=== PATIENT | male | born 1945 | race Caucasian/White ===

== ENCOUNTER 2016-05-21 08:43 | Inpatient (IN) | payer BC, MEDICARE ==
[2016-05-21] MEDS ORDERED: Iohexol 350* (CONTRAST) 500 ML MDV IV ONE (09:02)
[2016-05-21 09:09] LABS: Hematocrit 40 % (42-52); Hemoglobin 13.5 g/dl (14.0-18.0); Mean Corpuscular HGB Conc 34 g/dl (31-36); Mean Corpuscular Hemoglobin 30 pg (27-31); Mean Corpuscular Volume 88 fL (80-94); Mean Platelet Volume 8 um3 (7.4-10.4); Red Blood Count 4.58 10^6/ul (4.0-5.4); Red Cell Distribution Width 14 % (10.5-15); White Blood Count 7.4 10^3/ul (3.5-10.8)
--- NOTE | 2016-05-21 09:22 | RAD ---
HISTORY: Stroke COMPARISONS: CT of the chest dated May 15, 2016 VIEWS:1: Single frontal portable view of the chest at 9:03 AM FINDINGS: LINES AND TUBES: There is a left-sided chest port with the tip overlying the superior vena cava CARDIOMEDIASTINAL SILHOUETTE: Again noted is a perihilar soft tissue density of the left corresponding to the soft tissue density noted in the left upper lung in the previous examination PLEURA: There is mild elevation of the left hemidiaphragm. LUNG PARENCHYMA: The lungs are clear. ABDOMEN: The upper abdomen is clear. There is no subphrenic gas. BONES AND SOFT TISSUES: No bone or soft tissue abnormalities are noted. IMPRESSION: STABLE LEFT PERIHILAR SOFT TISSUE DENSITY
[2016-05-21 09:31] LABS: Albumin 3.7 g/dL (3.2-5.2); BUN/Creatinine Ratio 18.9 (8-20); Calcium 9.4 mg/dL (8.6-10.3); EGFR African American 100.8 (>60); EGFR Non-African American 78.4 (>60); Globulin 2.8 g/dL (2-4); Potassium 4.6 mmol/L (3.5-5.0); Total Bilirubin 1.5 mg/dL (0.2-1.0); Total Protein 6.5 g/dL (6.4-8.9)
--- NOTE | 2016-05-21 09:50 | RAD ---
HISTORY: Facial droop, right arm weakness COMPARISONS: MRI of the brain dated August 14, 2008 TECHNIQUE: Multiple contiguous axial CT scans were obtained of the head without intravenous contrast. FINDINGS: HEMORRHAGE/INFARCT: There is no hemorrhage or acute infarct. MASSES/SHIFT: There is no mass or shift. EXTRA-AXIAL SPACES: There are no extra-axial fluid collections. SULCI AND VENTRICLES: The sulci and ventricles are normal in size and position for the patient's stated age. CEREBRUM: There are no focal parenchymal abnormalities. BRAINSTEM: There are no focal parenchymal abnormalities. CEREBELLUM: There are no focal parenchymal abnormalities. VESSELS: The vessels are grossly normal. PARANASAL SINUSES: The paranasal sinuses are clear. ORBITS: The orbits are unremarkable. BONES AND SOFT TISSUE: No bone or soft tissue abnormalities are noted. OTHER: None IMPRESSION: NO ACUTE INTRACRANIAL PATHOLOGY.
[2016-05-21] MEDS ORDERED: Insulin REGULAR(*) 1 UNITS UNIT IV PUSH ONE (09:55)
[2016-05-21] MEDS ORDERED: NS 0.9% 1000 ML* 2,000 ML IV ONE (09:55)
--- NOTE | 2016-05-21 09:59 | RAD ---
HISTORY: Facial droop, right arm weakness, history of lung cancer COMPARISONS: CT dated May 21, 2016 TECHNIQUE: Multiple contiguous axial CT scans were obtained of the head and neck After the administration of nonionic intravenous contrast timed to the systemic arterial phase of contrast enhancement. Coronal and sagittal multiplanar reformations are submitted for review. Multiple 3-D maximum intensity projection reconstructions are also submitted for review. FINDINGS: CTA NECK: AORTIC ARCH: The aortic arch is not completely visualized within the [id number] the current examination. There is no proximal stenosis of the cephalic great vessels. RIGHT VERTEBRAL ARTERY: The right vertebral artery is patent along its course, without stenosis. LEFT VERTEBRAL ARTERY: The left vertebral artery is patent along its course, without stenosis. DOMINANCE: The vertebral arteries are codominant. RIGHT COMMON CAROTID ARTERY: The right common carotid artery is patent. The right carotid bifurcation occurs at C3-C4 RIGHT INTERNAL CAROTID ARTERY: There is atheromatous disease of the right carotid bifurcation, without right internal carotid artery stenosis by NASCET criteria. RIGHT EXTERNAL CAROTID ARTERY: The right external carotid artery is unremarkable. LEFT COMMON CAROTID ARTERY: The left common carotid artery is patent. The left carotid bifurcation occurs at C3-C4 LEFT INTERNAL CAROTID ARTERY: There is atheromatous disease of the left carotid bifurcation, without left internal carotid artery stenosis by NASCET criteria. LEFT EXTERNAL CAROTID ARTERY: The left external carotid artery is unremarkable. VENOUS CIRCULATION: The venous system is unremarkable. SALIVARY GLANDS: The parotid glands, submandibular glands, sublingual glands are normal. NASAL CAVITY/NASOPHARYNX: The nasal cavity and nasopharynx are normal. ORAL CAVITY/OROPHARYNX: The oral cavity is obscured by streak artifact from dental amalgam. The visualized oral cavity and oropharynx are unremarkable. LARYNGEAL APPARATUS/HYPOPHARYNX: The laryngeal apparatus and hypopharynx are normal. UPPER AIRWAY/UPPER ESOPHAGUS: The visualized upper airway and esophagus are normal. LUNG APICES: The lung apices are clear. THYROID GLAND: The thyroid gland is normal. LYMPH NODES: There is no lymphadenopathy by size criteria. BONES AND SOFT TISSUES: There is a sclerotic lesion of C6. This measures approximately 1.8 x 0.7 x 0.9 cm in size. Degenerative changes are noted of the spine CTA HEAD: INTRACRANIAL CIRCULATION: There is no aneurysm, vascular malformation, occlusion, or stenosis of the visualized intracranial circulation. The anterior communicating artery complex is clear. Bilateral posterior communicating arteries are identified. VENOUS CIRCULATION: The venous system is unremarkable. PERFUSION: There is no obvious parenchymal perfusion deficit. HEMORRHAGE/INFARCT: There is no hemorrhage or acute infarct. MASSES/SHIFT: There is no mass or shift. EXTRA-AXIAL SPACES: There are no extra-axial fluid collections. SULCI AND VENTRICLES: The sulci and ventricles are normal in size and position for the patient's stated age. CEREBRUM: There are no focal parenchymal abnormalities. BRAINSTEM: There are no focal parenchymal abnormalities. CEREBELLUM: There are no focal parenchymal abnormalities. PARANASAL SINUSES: The paranasal sinuses are clear. ORBITS: The orbits are unremarkable. BONES AND SOFT TISSUE: No bone or soft tissue abnormalities are noted. OTHER: There is no abnormal enhancement. IMPRESSION: 1. ATHEROSCLEROSIS. 2. NO INTERNAL CAROTID ARTERY STENOSIS BY NASCET CRITERIA. 3. NO ANEURYSM, VASCULAR MALFORMATION, OCCLUSION, OR STENOSIS OF THE VISUALIZED INTRACRANIAL CIRCULATION.. 4. THERE IS A SCLEROTIC LESION OF C6. GIVEN THE HISTORY OF LUNG CANCER, OSTEOBLASTIC METASTATIC DISEASE IS WITHIN THE DIFFERENTIAL. CPT II Codes: 3100F
[2016-05-21] MEDS ORDERED: Aspirin TAB* 325 MG PO ONE (10:04)
[2016-05-21] MEDS ORDERED: Gabapentin CAP(*) 300 MG PO ONE (10:49)
[2016-05-21] MEDS ORDERED: Oxymorphone (NF) 10 MG TAB PO ONE (11:00)
[2016-05-21] MEDS ORDERED: Ondansetron INJ* 2 MG/ML VIAL IV PRN (11:39)
[2016-05-21] MEDS ORDERED: Oxymorphone (NF) 10 MG TAB PO PRN (11:46)
[2016-05-21] MEDS ORDERED: LORazepam INJ* 2 MG/ML 1 ML VIAL IV PUSH ONE (11:47)
[2016-05-21] MEDS ORDERED: Albuterol 2.5 MG/3 ML NEB.SOL* (0.083%) INH PRN (11:50)
[2016-05-21 12:00] LABS: Urine Bilirubin Negative (Negative); Urine Glucose 3+(>=500 mg/dL) (Negative); Urine Nitrite Negative (Negative)
[2016-05-21] MEDS ORDERED: Gabapentin CAP(*) 400 MG PO ONE (12:00)
--- NOTE | 2016-05-21 13:56 | ED ---
Alvino Mazariegos [place], scribed for Castro Beauchamp MD on 05/21/16 at 1113 . Neurological HPI - HPI Summary HPI Summary: Patient is a 71 y/o male who presents to the ED s/p a CVA this morning. Caregiver present at bedside reports that pt was nml last night, but woke up with slurred speech. Pt denies headache, but reports weakness or extremities. He also denies a hx of CVA. Pt is a lung cancer pt. - History of Current Complaint Chief Complaint: EDNeurologicalDeficit Stated Complaint: STROKE LIKE SYMPTOMS Time Seen by Provider: 05/21/16 08:53 Hx Obtained From: Patient Onset/Duration: Gradual Onset, Started hours ago Onset Severity: Moderate Current Severity: Moderate Neurological Deficit Location: Generalized, RUE, LLE Pain Intensity: 0 Aggravating: Nothing Alleviating: Nothing Associated Signs and Symptoms: Positive: Negative - Allergy/Home Medications Allergies/Adverse Reactions: Allergies Allergy/AdvReac Type Severity Reaction Status Date / Time Pregabalin [From Lyrica] AdvReac Intermediate "wobbly Verified 05/15/16 09:16 legs" Varenicline [From Chantix] AdvReac nightmares Verified 05/15/16 09:16 Home Medications: Home Medications Bupropion XL (NF) [Wellbutrin XL (NF)] 300 mg PO BEDTIME 05/21/16 [History Confirmed 05/21/16] Cholecalciferol [Vitamin D3 Super Strength] 2,000 unit PO DAILY 05/21/16 [ History Confirmed 05/21/16] LORazepam TAB(*) [Ativan 0.5 MG TAB (*)] 0.5 mg PO BID PRN 05/21/16 [History Confirmed 05/21/16] Magnesium Oxide TAB* [MagOx 400 TAB*] 400 mg PO DAILY 05/21/16 [History Confirmed 05/21/16] [place]-3 Fatty Acids (Nf) [Fish Oil (NF)] 1,000 mg PO DAILY 05/21/16 [History Confirmed 05/21/16] Sennosides-Docusate Sodium [Senna-S 8.6-50 mg] 1 - 4 tab PO BID 05/21/16 [ History Confirmed 05/21/16] Venlafaxine EXT RELEASE CAP* [Effexor Xr CAP*] 75 mg PO DAILY 05/21/16 [History Confirmed 05/21/16] fentaNYL PATCHs 100 MCG/HR* [Duragesic Patch 100 Mcg/Hr *] 100 mcg TRANSDERM Q72H 05/21/16 [History Confirmed 05/21/16] PMH/Surg Hx/FS Hx/Imm Hx Endocrine/Hematology History: Denies: Hx Diabetes - Previously-Prior to BARIATRIC not currently after 140 Lb weight loss Cardiovascular History: Denies: Hx Hypertension - Previously-takes no meds Respiratory History: Reports: Hx Lung Cancer History: Denies: Hx Dialysis, Hx Renal Disease - Cancer History Cancer Type, Location and Year: lung Mar 2015 - Surgical History Surgery Procedure, Year, and Place: 3 spinal [id number] laminectomy- Plates, and has power port in left upper anterior chest wall, Appendectomy, Hemmroidectomy, Cholecystectomy, DeQuervian Release Left Infectious Disease History: No Infectious Disease History: Denies: Traveled Outside the [place] in Last 30 Days - Family History Known Family History: Positive: Cardiac Disease - Social History Alcohol Use: None Substance Use Type: Reports: None Smoking Status (MU): Never Smoked Tobacco Review of Systems Negative: Fever Positive: Headache, Weakness - in extremities. All Other Systems Reviewed And Are Negative: Yes Physical Exam - Summary Physical Exam Summary: The patient is well-nourished. The skin is warm and dry. HEENT: The head is normocephalic and atraumatic. Unable to conduct eye exam, because pt wont move eyes. The conjunctivae are clear and without drainage. Nares are patent and without drainage. Mouth reveals moist mucous membranes and the throat is without erythema and exudate. Neck is supple with full range of motion and non-tender. There are no carotid bruits. Respiratory: Chest is non-tender. Diminished lung sounds. Cardiovascular: Hear is regular rate and rhythm. There is no murmur or rub auscultated. There is no peripheral edema and pulses are symmetrical and equal. Abdomen: The abdomen is soft and non-tender. There are normal bowel sounds heard in all four quadrants and there is no organomegaly palpated. Musculoskeletal: There is no back pain noted. Extremities are non-tender with full range of motion. There is no peripheral edema or calf tenderness elicited. Neurological: Patient is alert and oriented to person, place and time. The patient has symmetrical motor strength in all four extremities. Right arm weakness. Able to do [id number] with right arm. Facial droop left-hand side. Pt can use right arm, but not left. Negative Babinski test. No heel-to- chin with left leg, but can attempt with right. Weakness vs. resistance of upper extremity. Speech slurred. Psychiatric: The patient has an appropriate affect and does not exhibit any anxiety or depression. Triage Information Reviewed: Yes Vital Signs On Initial Exam: Initial Vitals Temp Pulse Resp BP Pulse Ox 98.3 F 97 20 136/92 100 05/21/16 08:48 05/21/16 08:48 05/21/16 08:48 05/21/16 08:48 05/21/16 08:48 Vital Signs Reviewed: Yes - Masterson Coma Scale Coma Scale Total: 15 Diagnostics - Vital Signs Vital Signs Temp Pulse Resp BP Pulse Ox 05/21/16 10:00 68 15 136/84 99 05/21/16 09:32 12 99 05/21/16 09:31 169/78 05/21/16 09:00 87 17 120/84 100 05/21/16 08:51 90 33 100 05/21/16 08:48 98.3 F 97 20 136/92 100 - Laboratory Lab Results: Lab Results 05/21/16 05/21/16 05/21/16 Range/Units 09:00 09:00 09:00 WBC 7.4 (3.5-10.8) 10^3/ul RBC 4.58 (4.0-5.4) 10^6/ul Hgb 13.5 L (14.0-18.0) g/dl Hct 40 L (42-52) % MCV 88 (80-94) fL MCH 30 (27-31) pg MCHC 34 (31-36) g/dl RDW 14 (10.5-15) % Plt Count 170 (150-450) 10^3/ul MPV 8 (7.4-10.4) um3 Neut % (Auto) 84.3 H (38-83) % Lymph % (Auto) 9.7 L (25-47) % Nance % (Auto) 5.1 (1-9) % Eos % (Auto) 0.4 (0-6) % Baso % (Auto) 0.5 (0-2) % Absolute Neuts (auto) 6.3 (1.5-7.7) 10^3/ul Absolute Lymphs (auto) 0.7 L (1.0-4.8) 10^3/ul Absolute Monos (auto) 0.4 (0-0.8) 10^3/ul Absolute Eos (auto) 0 (0-0.6) 10^3/ul Absolute Basos (auto) 0 (0-0.2) 10^3/ul Absolute Nucleated RBC 0 10^3/ul Nucleated RBC % 0 INR (Anticoag Therapy) 1.10 (0.89-1.11) Sodium 127 L (133-145) mmol/L Potassium 4.6 (3.5-5.0) mmol/L Chloride 88 L (101-111) mmol/L Carbon Dioxide 24 (22-32) mmol/L Anion Gap 15 H (2-11) mmol/L BUN 18 (6-24) mg/dL Creatinine 0.95 (0.67-1.17) mg/dL Est GFR ( Amer) 100.8 (>60) Est GFR (Non-Af Amer) 78.4 (>60) BUN/Creatinine Ratio 18.9 (8-20) Glucose 551 H* (70-100) mg/dL Lactic Acid (0.5-2.0) mmol/L Calcium 9.4 (8.6-10.3) mg/dL Total Bilirubin 1.50 H (0.2-1.0) mg/dL AST 13 (13-39) U/L ALT 15 (7-52) U/L Alkaline Phosphatase 203 H (34-104) U/L Troponin I 0.00 (<0.04) ng/mL Total Protein 6.5 (6.4-8.9) g/dL Albumin 3.7 (3.2-5.2) g/dL Globulin 2.8 (2-4) g/dL Albumin/Globulin Ratio 1.3 (1-3) 05/21/16 Range/Units 09:00 WBC (3.5-10.8) 10^3/ul RBC (4.0-5.4) 10^6/ul Hgb (14.0-18.0) g/dl Hct (42-52) % MCV (80-94) fL MCH (27-31) pg MCHC (31-36) g/dl RDW (10.5-15) % Plt Count (150-450) 10^3/ul MPV (7.4-10.4) um3 Neut % (Auto) (38-83) % Lymph % (Auto) (25-47) % Nance % (Auto) (1-9) % Eos % (Auto) (0-6) % Baso % (Auto) (0-2) % Absolute Neuts (auto) (1.5-7.7) 10^3/ul Absolute Lymphs (auto) (1.0-4.8) 10^3/ul Absolute Monos (auto) (0-0.8) 10^3/ul Absolute Eos (auto) (0-0.6) 10^3/ul Absolute Basos (auto) (0-0.2) 10^3/ul Absolute Nucleated RBC 10^3/ul Nucleated RBC % INR (Anticoag Therapy) (0.89-1.11) Sodium (133-145) mmol/L Potassium (3.5-5.0) mmol/L Chloride (101-111) mmol/L Carbon Dioxide (22-32) mmol/L Anion Gap (2-11) mmol/L BUN (6-24) mg/dL Creatinine (0.67-1.17) mg/dL Est GFR ( Amer) (>60) Est GFR (Non-Af Amer) (>60) BUN/Creatinine Ratio (8-20) Glucose (70-100) mg/dL Lactic Acid 2.0 (0.5-2.0) mmol/L Calcium (8.6-10.3) mg/dL Total Bilirubin (0.2-1.0) mg/dL AST (13-39) U/L ALT (7-52) U/L Alkaline Phosphatase (34-104) U/L Troponin I (<0.04) ng/mL Total Protein (6.4-8.9) g/dL Albumin (3.2-5.2) g/dL Globulin (2-4) g/dL Albumin/Globulin Ratio (1-3) Result Diagrams: 05/21/16 09:00 05/21/16 09:00 Lab Statement: Any lab studies that have been ordered have been reviewed, and results considered in the medical decision making process. - Radiology CXR Radiology Interpretation Completed By: Radiologist - IMPRESSION: STABLE LEFT PERIHILAR SOFT TISSUE DENSITY - CT HEAD CT Interpretation Completed By: Radiologist - IMPRESSION: 1. ATHEROSCLEROSIS. 2. NO INTERNAL CAROTID ARTERY STENOSIS BY NASCET CRITERIA. 3. NO ANEURYSM, VASCULAR MALFORMATION, OCCLUSION, OR STENOSIS OF THE VISUALIZED INTRACRANIAL CIRCULATION.. 4. THERE IS A SCLEROTIC LESION OF C6. GIVEN THE HISTORY OF LUNG CANCER, OSTEOBLASTIC METASTATIC DISEASE IS WITHIN THE DIFFERENTIAL. BRAIN CT Interpretation Completed By: Radiologist - IMPRESSION: NO ACUTE INTRACRANIAL PATHOLOGY. - EKG 0851 EKG Interpretation: Nml sinus @ [address]. [address] elevation. NIH Scale - NIH Scale Level of Consciousness: Alert/Keenly Responsive Ask Patient the Month and His/Her Age: Both Correct Ask Pt to Open/Close Eyes and Cisco Administrator/Release Non-Paretic Hand: Both Correctly Best Gaze (Only Horizontal Eye Movement): Normal Visual Field Testing: No Visual Loss Facial Paresis-Pt to Smile & Close Eyes or Grimace Symmetry: Partial Paralysis Motor Function - Right Arm: No Drift-Holds 10 Seconds Motor Function - Left Arm: No Drift-Holds 10 Seconds Motor Function - Right Leg: Effort Against Acme Motor Function - Left Leg: No Effort Against Acme Limb Ataxia-Must be out of Proportion to Weakness Present: Present in Two Limbs Sensory (Use Pinprick to Test Arms/Legs/Trunk/Face): Normal Best Language (Describe Picture, Name Items): Some Loss Dysarthria (Read Several Words): Slurs Some Words Extinction and Inattention: Inattention Total Score: 12 Re-Evaluation - Re-Evaluation First Eval Re-Evaluation Time: 10:15 Comment: Discussed plan of action. Course/Dx - Differential Dx Differential Diagnoses Neuro: Positive: Cerebrovascular Accident, Coronary Artery Disease, Metabolic Abnormality, Other - metastatic lung cancer, intracranial bleed, atrial fibrillation - Diagnoses Provider Diagnoses: CVA, Hyperglycemia, Hx of cancer of lung - Physician Notifications Discussed Care of Patient With: Dr. Ashton (neurologist) @ 1002. Recommended an MRI. Dr. Tran (oncologist) @ 1010. Referred to Dr[address] King. Dr. King ( hospitalist) Will admit. Discharge - Discharge Plan Condition: Stable Disposition: ADMITTED TO [facility] documentation as recorded by the scribAlvino gross [place] accurately reflects the service I personally performed and the decisions made by me, Castro Beauchamp MD.
--- NOTE | 2016-05-21 14:20 | HP ---
HISTORY AND PHYSICAL: DATE OF ADMISSION: 05/21/16 PRIMARY CARE PROVIDER: Dr. Ritter in [place]. ATTENDING PHYSICIAN WHILE IN THE HOSPITAL: Juana Mcguire MD * (report dictated by Germain Mckeon NP). CONSULTING NEUROLOGIST: Dr. Ashton. PRIMARY ONCOLOGIST: Dr. Tran. CHIEF COMPLAINT: 1. Difficulty with speech. 2. Left facial droop. HISTORY OF PRESENT ILLNESS: Mr. Dudley is a 71-year-old male patient, who has a history of diabetes, lung cancer, undergoing chemo with Dr. Tran, history of asthma, COPD, hypertension, hyperlipidemia, chronic back pain, and BPH. He comes in today. He noticed yesterday that he had trouble putting his teeth in and he noticed that his false teeth were leaking, which they never do. This was around the evening time yesterday. He did not pay much attention to this. He just thought maybe he put them in wrong. He went to bed and he woke up this morning, and he noticed that he was having difficulty with his speech, particularly just dysarthria and trouble getting his words out and having a slower speech and he also noticed that his left face felt funny and he also had this facial droop and he said his left arm, he was having trouble with coordination of his left hand, particularly picking things up. His noticed this and immediately called 911 and came into the hospital. When he came in here, he was having some significant left-sided weakness. He states that this is now improving, he denies any recent cough, fevers, chills. He does state that he has been feeling short of breath off and on the last couple of weeks. He denies having any vomiting or diarrhea. Denies having any abdominal discomfort and states that he has been following closely with Dr. Tran. The patient states that he has not had any worsening back pain. He states that his right leg always does not work and he states it is worse, he states he cannot lift it up, it has been weak for sometime and he cannot drive. He states that he has noticed now that he has also been having some trouble with swallowing. He was evaluated in the ED, there was concern for CVA and the hospitalist service was asked to evaluate for admission. PAST MEDICAL HISTORY: Significant for: 1. Diabetes. 2. Lung cancer. 3. COPD. 4. Asthma. 5. Hypertension. 6. Hyperlipidemia. 7. BPH. PAST SURGICAL HISTORY: 1. He has had a cardiac catheterization. 2. He has had 3 back surgeries. 3. Appendectomy. 4. Cholecystectomy. 5. Lm-En-Y. HOME MEDICATIONS: According to the list that was provided from his primary include; 1. Effexor 75 mg daily. 2. Lasix 20 mg daily as needed. 3. Nexium 40 mg daily. 4. Trazodone 100 mg p.o. at bedtime. 5. Wellbutrin 300 mg p.o. at bedtime. 6. Magnesium oxide 400 mg p.o. daily. 7. Gabapentin 800 mg p.o. t.i.d. 8. Senna 1 to 4 tablets p.o. b.i.d. 9. Vitamin D3, 2000 units daily. 10. Fentanyl patch 100 mcg transdermally every 72 hours. 11. Fish oil 1000 mg p.o. daily. 12. Ativan 0.5 mg p.o. b.i.d. as needed. 13. He is also taking oxymorphone 10 mg p.o. every 4 hours as needed for pain. ALLERGIES TO MEDICATIONS: Include CHANTIX and LYRICA. FAMILY HISTORY: He states that his mother and father did not have strokes or heart attacks. His father in a car accident at a young age and his mother at the age of 92. SOCIAL HISTORY: He is a former smoker. He does not smoke anymore. He does not drink alcohol. He lives with his . Surrogate decision maker is his and his son. REVIEW OF SYSTEMS: There is no documented fever. There was no report of weight change. No double vision. No ear discharge. No rhinorrhea. No sore throat. No thyroid enlargement. Denies having any chest pain. There was no orthopnea. No nocturnal dyspnea. There was no abdominal pain. No nausea, vomiting. No dysuria, no frequency, no loss of consciousness. No pruritus and no skin ulcerations. Review of 14 systems completed, all others negative. PHYSICAL EXAMINATION GENERAL: At this time, Mr. Dudley is a 71-year-old male patient, he is sitting in the ER stretcher, he does not appear to be in any acute distress. VITAL SIGNS: Blood pressure of 137/72, pulse 78, respirations 18, O2 sat 100%, temperature 98.3. HEENT: Head is atraumatic, normocephalic. Eyes: Sclerae anicteric and not pale. Throat: Oral mucosa appears to be moist. No oropharyngeal erythema. NECK: Supple. LUNGS: Clear to auscultation bilaterally. No wheezes, rales, or rhonchi. HEART: Sounds S1, S2. Regular rate and rhythm. No murmurs, rubs, or gallops. ABDOMEN: Soft, flat, nontender. Bowel sounds present. EXTREMITIES: Pulses 2+ throughout. He is unable to lift the right lower extremity. He does have about 4/5 strength on the left extremity and he has 5/ 5 strength in the upper extremities. NEUROLOGICAL: He is awake. His speech is slurred. He does have some dysarthria. He is oriented x3. His tongue does deviate to the left. Along with it, he has left facial droop as well. Finger to nose is intact bilaterally. He cannot do heel to lin bilaterally because of difficulty with range of motion to that right lower extremity. In addition to this, his batteryman was a little weaker on the left compared to the right. No other gross focal deficits. SKIN: Intact. DIAGNOSTIC STUDIES/LAB DATA: Today revealed WBC of 7.4, RBC of 4.58, hemoglobin 13.5, hematocrit of 40, platelet count of 170. INR 1.10. Sodium was 127, potassium of 4.6, chloride of 88, bicarb 24, BUN 18, creatinine of 0.95 , glucose 551, lactic 2.0, calcium of 9.4. Total bili 1.5, AST 13, ALT 15. His alk phos is 203, troponin 0, albumin 3.7. He had multiple imaging here in the ED, starting out with a brain CT, which revealed no acute intracranial pathology. He had an EKG, which unfortunately I do not have a previous EKG for comparison, but it shows a normal sinus rhythm. No ST elevations or T-wave inversions. Appears to have LVH, rate of 88. No previous for comparison. He had a chest x-ray obtained today, on my review, I do not see any pulmonary edema or effusions or infiltrate. Radiology read as stable left perihilar soft tissue density. Head CTA shows atherosclerosis, no intracranial artery stenosis by NASCET criteria. No aneurysm, vascular malformation, occlusion, or stenosis of a visualized intracranial circulation. There is a sclerotic lesion of C6. Given the history of lung cancer, osteoblastic metastatic disease is within the differential. Old medical records reviewed. ASSESSMENT AND PLAN: Mr. Dudley is a 71-year-old male patient coming into the ER today with complaints of facial droop, in addition to this, is also having difficulty with speech. On evaluation, there was concern for cerebrovascular accident and hospitalist service was asked to evaluate for admission. He will be admitted under inpatient status for: 1. Cerebrovascular accident. At this point, he did receive an aspirin. I am going to go ahead and hold his p.o. medications until Speech sees him. I want to make sure that he is not going to aspirate on this, so I have ordered a speech eval, PT/OT, I have ordered MRI. CTA was negative. I did order an echo with bubble study, neuro checks. I have started a statin if he can take p.o. safely and for now, I have ordered p.r. aspirin daily and we will change this to p.o. if he is able to swallow and I have ordered PT and OT and we will continue to evaluate and Dr. Ashton has been consulted. 2. C6 lesion. I did touch base with Dr. Tran. She is aware, she will be following the patient most likely in the outpatient setting. She states this will not change the management of his lung carcinoma. 3. Lung carcinoma. Follow up with Dr. Tran. 4. Diabetes. His sugar here was 550, so I did put him on a sliding scale here and I checked an A1c. 5. History of chronic obstructive pulmonary disease and asthma. I did order p.r.n. albuterol. 6. Hypertension. We will allow for permissive hypertension in the setting of acute cerebrovascular accident. 7. Hyperlipidemia and because of the cerebrovascular accident, I did put him on a statin. We are getting a lipid panel. 8. Benign prostatic hypertrophy. He can follow with his primary. 9. Chronic back pain. Continue meds as prescribed. 10. DVT prophylaxis. He is high risk. I am going to put him on heparin subcu. 11. Code status. He wished to be a DNR. 12. Fluids, electrolytes, nutrition. His n.p.o. pending swallow evaluation. TIME SPENT: On this admission was 60 minutes, greater than half the time was spent [id number] with the patient, obtaining my history and physical, the other half time was spent going over the plan of care with the patient and implementing my plan of care. I did discuss the plan of care with my attending, Dr. Mcguire; she is in agreement. GERMAIN MCKEON NP CC: Dr. Ritter in [place]; Dr. Marc MD; Dr. Ashton* [id number]/[facility] #: [id number] MTDD
[2016-05-21] MEDS: oxyCODONE TAB* 5 MG TAB PO PRN (14:31)
[2016-05-21] MEDS: Insulin LISPRO* 1 UNITS UNIT SUBCUT SCH ×2 (14:35→18:36)
[2016-05-21] MEDS: fentaNYL PATCHs 100 MCG/HR TRANSDERM SCH (14:36)
[2016-05-21] MEDS: Gabapentin CAP(*) 400 MG PO SCH ×2 (15:12→21:42)
[2016-05-21] MEDS: Heparin VIAL(*) 5000 UNITS/ML VIAL (FIVE THOUSAND) SUBCUT SCH ×2 (15:12→21:44)
--- NOTE | 2016-05-21 16:39 | ECHO ---
Patient: MAHSA ZAPIEN [facility] Rec#: [id number] : 1945 Date: 05/21/2016 Age: 71y Height: 167.6 cm / 66.0 in Weight: 74.8 kg / 164.9 lbs Sex: M BSA: 1.8 Room#: [facility] Admit Date#: 05/21/2016 Type: Inpatient Referring: Germain Mckeon NP Reading: Fredrick Guaman MD Gear Finisher: Carmella Reyes RN RDCS CC: Bon Ritter MD Transthoracic Echocardiogram Indication: CVA BP: 137/72 HR: 73 Rhythm: NSR Findings History: Lung cancer, chemotherapy, HTN, HLD, asthma, former smoker Technical Comments: The study is technically limited due to the patient's smoking history. Completed at 1630. Left Ventricle: The left ventricular chamber size is normal. There is increased basal septal hypertrophy noted without evidence of an increased gradient across the left ventricular outflow tract. Global left ventricular wall motion and contractility are within normal limits. The left ventricle appears hyperdynamic. The estimated ejection fraction is greater than 65%. There is no consistent Doppler evidence of clinically significant diastolic dysfunction. Abnormal left ventricular diastolic filling is observed, consistent with impaired relaxation. The absence of left atrial enlargement suggests this finding may not be of clinical signficance. Left Atrium: The left atrial chamber size is normal. Right Ventricle: The right ventricular cavity size is normal. The right ventricular global systolic function is normal. Right Atrium: The right atrial cavity size is normal. A patent foramen ovale is demonstrated by agitated contrast. There are a mild degree of bubbles shunting right to left across the atrial septum. There is evidence of an atrial septal aneurysm. Aortic Valve: The aortic valve is trileaflet. The aortic valve leaflets are mildly thickened. There is mild aortic regurgitation. There is no evidence of aortic stenosis. Mitral Valve: The mitral valve leaflets are mildly thickened. There is mild mitral regurgitation. There is no evidence of mitral stenosis. Tricuspid Valve: The tricuspid valve leaflets are normal. There is mild to moderate tricuspid regurgitation. No pulmonary hypertension is noted. There is no tricuspid stenosis. Pulmonic Valve: The pulmonic valve appears normal. There is a trace pulmonic regurgitation. There is no pulmonic stenosis. Pericardium: There is no significant pericardial effusion. Aorta: There is no dilatation of the ascending aorta. There is no dilatation of the aortic arch. There is no dilation of the aortic root. Pulmonary Artery: The main pulmonary artery appears normal. Venous: The inferior vena cava appears normal in size. There is a greater than 50% respiratory change in the inferior vena cava dimension. Contrast: Normal saline was used as contrast for the bubble study. Image 4. Conclusions The left ventricle appears hyperdynamic. The estimated ejection fraction is greater than 65%. Abnormal left ventricular diastolic filling is observed, consistent with impaired relaxation. There is mild aortic regurgitation. There is mild mitral regurgitation. There is mild to moderate tricuspid regurgitation. No pulmonary hypertension is noted. There is a trace pulmonic regurgitation. A patent foramen ovale is demonstrated by agitated contrast. There are a mild degree of bubbles shunting right to left across the atrial septum. There is evidence of an atrial septal aneurysm. No reports of prior studies are offered for comparison. Measurements Name Value Normal Range RVDdMajor (2D) 2.9 cm (2.2 - 4.4) RAd ISD 4CH 4.6 cm (3.4 - 4.9) RA (A4C)W 3 cm (2.9 - 4.6) IVSd (2D) 1 cm (0.6 - 1) LVPWd (2D) 1 cm (0.6 - 1) LVIDd (2D) 3.9 cm (3.6 - 5.4) LVIDs (2D) 1.9 cm - LV FS (2D) 51 % (25 - 45) Aortic Annulus 1.7 cm (1.4 - 2.6) Ao root diameter (2D) 2.7 cm (2.1 - 3.5) Ascending Ao 3.4 cm (2.1 - 3.4) Aortic arch 2.4 cm (1.8 - 3.4) LA dimension (AP) 2D 2.9 cm (2.3 - 3.8) LAd ISD 4CH 4.1 cm (2.9 - 5.3) LA ISD 4CH W 2.8 cm (2.5 - 4.5) Name Value Normal Range LA ESV SP 4CH (A/L) 21 ml - LA ESV SP 2CH (A/L) 18 ml - LA ESV BP (A/L) 20 ml - LA ESV BP (A/L) index 10.7 ml/m2 - LA ESV SP 4CH (MOD) 19 ml - LA ESV SP 2CH (MOD) 17 ml - Name Value Normal Range MV E-wave Vmax 0.67 m/sec - MV deceleration time 259 msec - MV A-wave Vmax 1.2 m/sec - MV E:A ratio 0.6 ratio - LV septal e' Vmax 0.05 m/sec - LV lateral e' Vmax 0.06 m/sec - LV E:e' septal ratio 13.4 ratio - LV E:e' lateral ratio 11.2 ratio - Name Value Normal Range AV Vmax 1.8 m/sec - AV VTI 33.3 cm - AV peak gradient 12 mmHg - AV mean gradient 6 mmHg - LVOT Vmax 1.5 m/sec - LVOT VTI 26 cm - LVOT peak gradient 9 mmHg - LVOT mean gradient 4 mmHg - Name Value Normal Range TR Vmax 2.7 m/sec - TR peak gradient 29 mmHg - RAP 3 mmHg - RVSP 32 mmHg - IVC diameter 1.6 cm - Name Value Normal Range PV Vmax 1.1 m/sec -
--- NOTE | 2016-05-21 17:33 | RAD ---
Indication: Weakness in the right arm and left-sided facial droop, history of lung CA. Image sequences: Sagittal and axial T1, axial T2, FLAIR, diffusion and susceptibility weighted images of the brain were obtained. The study is severely limited due to motion artifact. Diffusion-weighted images demonstrates no obvious restriction of diffusion. Ventricular structures are midline. No midline shift is noted. Periventricular signal abnormalities consistent with chronic ischemic White matter change is noted. There is no evidence of intracranial mass or hemorrhage. No susceptibility artifact is noted. IMPRESSION: No obvious masses are noted. The study is extremely limited due to motion artifact. There appears to be chronic sinusitis noted. No definite changes are noted. Previous exam of August 17, 2008.
[2016-05-21] MEDS: Atorvastatin* 80 MG TAB PO SCH (18:39)
[2016-05-21] MEDS: fentaNYL Patch Check Q Shift 1 NOTE SCH (18:53)
--- NOTE | 2016-05-21 20:42 | CONS ---
NEUROLOGY CONSULTATION: DATE OF CONSULT: 05/21/16 REQUESTING PROVIDER: Dr. Castro Beauchamp. REASON FOR CONSULT: Possible stroke. HISTORY OF PRESENT ILLNESS: Mr. Dudley is a 71-year-old man with a history of diabetes as well as lung cancer under the care of Dr. Tran who presented to the emergency department this morning when he woke with weakness of the left side of his face and dysarthria. He reports that he was having some drooling yesterday and just felt "awful" and so, he went to bed about 1 p.m. and did not wake up until this morning. Upon waking this morning, he was having difficulty with his speech and particularly not sounding clear, and felt that the left side of his face felt funny. He also feels like his left leg may be weak, but he has chronic difficulties with his legs because of back problems though it is typically his right leg which is weak and numb. It sounds like since he was initially evaluated in the emergency room, his deficits have been improving. He was not considered a candidate for tPA since he woke up with his symptoms this morning. He is not on antiplatelet agent at home. Of note, he has had gastric bypass in the last 5 or 6 years and reports that his diabetes is "gone" but his glucose was greater than 500 on initial evaluation in the ED today. Neurology consult was requested due to the possibility of stroke. On my evaluation this afternoon, the patient reports that he is improving, but his speech is still not back to baseline, and he feels like there is something stuck in his mouth though when he tries to locate it, there is nothing there. PAST MEDICAL HISTORY: 1. Diabetes. 2. Lung cancer. 3. COPD. 4. Asthma. 5. Hypertension. 6. Hyperlipidemia. 7. Chronic back pain. 8. BPH. PAST SURGICAL HISTORY: 1. He has had a cardiac catheterization. 2. Three back surgeries, the details of which he cannot provide but he indicates that he previously had radicular pain down his right leg. 3. Appendectomy. 4. Cholecystectomy. 5. Lm-en-Y. HOME MEDICATIONS: 1. Effexor 75 mg daily. 2. Lasix 20 mg as needed. 3. Nexium 40 mg daily. 4. Lorazepam 0.5 mg b.i.d. p.r.n. 5. Trazodone 100 mg at bedtime. 6. Wellbutrin 300 mg at bedtime. 7. Magnesium oxide 400 mg daily. 8. Gabapentin 800 mg t.i.d. 9. Senna 1 to 4 tablets p.o. b.i.d. 10. Vitamin D3 2000 units daily. 11. Fentanyl patch 100 mcg every 72 hours. 12. Fish oil 1000 mg daily. 13. Oxymorphone 10 mg p.o. q.4 hours as needed for pain. ALLERGIES: CHANTIX causes nightmares. There is also an allergy to LYRICA. He also reports an allergy to LATEX. FAMILY HISTORY: His daughter had diabetes and unfortunately he indicates that she last month because of this. She was in her 40s. His mother and father did not have strokes or heart attacks that he is aware of. SOCIAL HISTORY: He is a former smoker and former drinker, but does not do either any longer for the last 5 or 6 years. He lives with his . REVIEW OF SYSTEMS: No recent systemic illness. He does indicate as per the HPI that he felt "awful yesterday." He has been having some chest pains which he associates with his lung cancer. PHYSICAL EXAM: Vital Signs: Temperature 98.3, blood pressure 120/84, heart rate 87, and oxygen saturation 100% on room air. On general examination, Mr. Dudley is a very pleasant man, in no acute distress. His heart is in a regular rate and rhythm with a soft, systolic ejection murmur. There are no carotid bruits. Lungs are clear to auscultation bilaterally. There is no extremity edema. Neurologic Examination: He is fully alert and oriented. His speech is without significant dysarthria though he feels it is not quite his baseline. There is no aphasia. On cranial nerve testing, pupils are equal, round, and reactive from 3 to 2 mm bilaterally. Versions are full without nystagmus. Visual king are full to confrontation. Facial sensation is intact in the V1 to V3 distributions bilaterally. I do not appreciate any significant facial weakness at this time. Hearing is intact to finger rub on the left and absent on the right. The palate elevates symmetrically and the tongue is midline. Shoulder shrug is full and symmetric. On motor examination, he has normal tone in the upper and lower extremities. Bulk is reduced in the right gastroc. He has some mild weakness of the right shoulder, which may be effort related. The left upper extremity and the rest of the right upper extremity are full strength. The right lower extremity has antigravity strength, but he is unable to provide any resistance indicating that this leg is weaker chronically because of his back issues. The left leg is approximately grade 4 proximally as well as in the knee flexion, but knee extension and ankle dorsiflexion are full. Sensation is intact to pinprick in the upper and lower extremities. Reflexes are 2+ in the upper extremities, 1+ right knee, 2+ left knee, 1+ right ankle, and 2+ left ankle with downgoing toes bilaterally. On kdxjyz-nm-[id number] testing on the left, he had past pointing consistently while it was intact on the right. Xzpn-ro-rale on the left appeared to have some ataxia. I did not ambulate him at this time. DIAGNOSTIC STUDIES/LAB DATA: Laboratory data reviewed includes a CBC which was notable only for 84% neutrophils, but a normal white blood cell count and slightly low hematocrit of 40. Chemistry panel showed an elevated glucose of 551 and a low sodium of 127, which is likely falsely low due to the hyperglycemia. In addition, there is an anion gap of 15, low chloride of 88, total bilirubin of 1.5, and alkaline phosphatase of 203. Coagulation studies are normal. Urine is notable for 2+ ketones, high specific gravity, 3+ glucose. CT of the brain was personally reviewed and showed no acute intracranial abnormalities. Head CTA was personally reviewed and showed some atherosclerosis of the carotid arteries, but no hemodynamically significant stenosis and no occlusions or significant stenoses intracranially. There was a sclerotic lesion noted in the C6 vertebra with an osteoblastic lesion being within the differential. Transthoracic echocardiogram was performed and showed hyperdynamic left ventricle with an EF greater than 65%. There is a patent foramen ovale demonstrated. There is also an atrial septal aneurysm. IMPRESSION AND PLAN: Dixon Dudley is a 71-year-old man, who presented to the emergency department with left facial weakness and dysarthria, both of which have improved at this point. He has vascular risk factors and also has history of an active lung cancer. On examination, I do not appreciate much in the way of left facial weakness or dysarthria at this point, but he does potentially have some cerebellar findings on the left and some questionable weakness in the left leg. He is scheduled to undergo MRI of the brain which will help to better define whether this has been an acute stroke here. He has been placed on aspirin at this point and should be continued on aspirin 81 mg at this time. I note that there is also a C6 lesion which is possibly concerning for a metastatic lesion and the patient reports that he may have some disease involving his ribs as well. I believe Dr. Tran is going to be made aware of this finding. He should undergo therapy evaluations and be monitored on telemetry. He was not a tPA candidate since he awoke with symptoms. He is now aware that he is diabetic and will receive treatment and education in this regard as well. Thank you for this consultation. I will follow up the patient's MRI scan. [id number]/[facility] #: [id number] JAIME
[2016-05-21] MEDS ORDERED: BuPROPion XL* 300 MG TAB.XL PO SCH (21:00)
[2016-05-21] MEDS: traZODone TAB* 100 MG PO SCH (21:41)
[2016-05-22 02:28] LABS: Hematocrit 33 % (42-52); Hemoglobin 11.4 g/dl (14.0-18.0); Mean Corpuscular HGB Conc 34 g/dl (31-36); Mean Corpuscular Hemoglobin 30 pg (27-31); Mean Corpuscular Volume 89 fL (80-94); Mean Platelet Volume 8 um3 (7.4-10.4); Red Blood Count 3.75 10^6/ul (4.0-5.4); Red Cell Distribution Width 14 % (10.5-15); White Blood Count 4.3 10^3/ul (3.5-10.8)
[2016-05-22 02:32] LABS: Add Diff/Slide Review? Slide Review Added; Comments Flag Yes
[2016-05-22 02:40] LABS: Albumin 2.9 g/dL (3.2-5.2); Calcium 8.4 mg/dL (8.6-10.3); EGFR African American 105.9 (>60); EGFR Non-African American 82.4 (>60); Globulin 2.2 g/dL (2-4); Potassium 4.3 mmol/L (3.5-5.0); Total Bilirubin 0.8 mg/dL (0.2-1.0); Total Protein 5.1 g/dL (6.4-8.9)
--- NOTE | 2016-05-22 02:41 | PN ---
Progress Note - Progress Note Note: Nursing called at midnight reporting concern for mild L facial droop without slurred speech or other focal deficit in patient admitted for TIA/CVA. Advised to change neurochecks to Q1H. At 0100, nursing called reporting definite L facial droop, slurred speech, and lethargy. Upon my arrival, Mr Dudley was noted to have a moderate L facial droop, weak eye clench on the L, tongue deviating to the left on protrusion, & L pronator drift. NIH score was 10, complicated by baseline general weakness. A mynor lr was called and case reviewed w/ D MD Daisha neurology who had seen him last evening ~1600 w/o deficit. MRI, CTA, and repeat CT were reviewed. No contraindications for tPA noted. Dr Ashton agreed to tPA administration, but would not be able to arrive within the window and so we proceeded with her en route. Upon return from CT, Mr Dudley was reassessed, deficits remain unchanged. He is lethargic, but oriented to PPTS and able to consent in my opinion. He was advised of the increased risk of tPA in diabetics in the extended window as it was currently 0215 and he was last seen normal at 2200. This risk was explained to include increased complications, such as bleeding, worsening of his symptoms ~3% of the time, and possibly . The benefits were explained to be ~30% chance of improvement at 3months compared to not receiving. Questions were sought and answered to his satisfaction. He expressed understanding and agreed to administration. Marcela Velasquez RN ED was called to administer and he was transferred to ICU for post-tPA protocol.
[2016-05-22] MEDS ORDERED: Phenylephrine INJ* 10 MG/ML 1 ML VIAL (10 MG) ONE ×2 (03:14→03:16)
[2016-05-22] MEDS ORDERED: NS 0.9% 1000 ML* 1,000 ML IV SCH ×2 (03:15→08:28)
[2016-05-22] MEDS ORDERED: NS 0.9% 1000 ML* 500 ML IV SCH (03:30)
[2016-05-22] MEDS ORDERED: Phenylephrine INJ* 50 MG in NS 0.9% 250 ML* 245 ML IV SCH (04:00)
[2016-05-22] MEDS ORDERED: ALTEPLASE IV ONE ×2 (04:00)
[2016-05-22] MEDS: Pantoprazole IV* 40 MG IV SCH ×2 (05:16→09:45)
--- NOTE | 2016-05-22 05:21 | PN ---
PROGRESS NOTE: DATE OF EVALUATION: 05/22/16 EVENTS: I was called by Dr. De Dios just before 2 a.m. with acute onset of recurrent left facial droop and some left arm weakness in Mr. Dudley. When I had seen him earlier this afternoon, he had had no facial droop, no slurred speech, and no appreciable arm weakness at that time. I did think he had some ataxia in his lower extremity on the left and some past-pointing on the left as well, but he underwent MRI scan of the brain after I saw him, there was no acute ischemia noted. He had last been normal during a neuro check at 10 p.m. and then at approximately midnight. On the neuro check, he had some mild left facial droop and then was noted to be worse at the 1 a.m. neuro check. His head CT showed no signs of hemorrhage and he was determined to be a tPA candidate in the extended 4-1/2-hour time window. Dr. De Dios discussed the risks and benefits of tPA with him as I was not going to be able to be present in the hospital within the 4-1/2-hour window and the patient elected to proceed with tPA. I arrived and assessed Mr. Dudley at approximately 2:45 a.m. as below. PHYSICAL EXAMINATION: Vital Signs: Blood pressure 113/59 at 12:04. Repeat blood pressure just now is 102/61. On examination, Mr. Dudley is not alert, but rouses easily to verbal stimulation , but requires repeated stimulation in order to attend and follow the exam. His speech is dysarthric, but understandable. He is oriented to his age and the month. He is able to open and close his eyes, open and close his right fist. Gaze is midline and his eye movements are full. His king are full to confrontation. He has a left lower facial weakness with asymmetry on smiling, but is able to activate the left face. The left arm is antigravity and he is able to sustain it for 10 seconds off the bed, but it does drift. The right arm is full strength. Both legs are weak and he has baseline weakness in his right leg and neither leg remains off the bed for the full 5 seconds. He has some ataxia on both the right and left side on [id number], and he was not able to perform [id number] because of his lower extremity weakness at this time. There is no obvious sensory deficit and no obvious aphasia. There is no obvious extinction and his NIH stroke score is 10. DATA: Repeat labs showed a platelet count of 129, INR of 1.69, and PTT being added to that and a glucose of 351. IMPRESSION: Dixon Dudley is a 71-year-old man who came into the hospital yesterday with left facial weakness and some left arm weakness, which resolved during the course of his hospitalization, but recurred overnight tonight within the tPA window. He had an MRI scan earlier today, which showed no acute ischemia and was personally reviewed. He had a head CT, which showed no evidence for hemorrhage. The tPA bolus was initiated by Dr. De Dios at approximately 02:26 a.m., and the remainder of the dose is infusing at this time. If anything, his blood pressure is on the lower side at this time, so I lowered the head of his bed to remain less than 30 degrees. He should be monitored for any acute neurologic changes and a stat head CT obtained if that should occur and the tPA bolus should be held. He has been moved to the ICU for close neurologic checks, and heparin and aspirin should be held at this time. After 24 hours, he will have a repeat head CT. Given his decreased level of alertness and these recurrent focal neurologic deficits without any obvious stroke on the MRI scan, in the morning, it may be advisable to get an EEG as well. ADDENDUM: The patient's PTT returned elevated at 59.8. Given that he had received heparin subcu for DVT prophylaxis earlier today, this may be the reason for his elevated coagulation studies though his INR yesterday morning was 1.1 and today is 1.69. Given the derangements in his coagulation studies, this is a contraindication to tPA and tPA infusion was stopped. He received approximately half of the total volume of infusion. His NIH Stroke Scale was stable at the time when the infusion was stopped. [id number]/[facility] #: [id number]/[facility] #: [id number] JAIME
[2016-05-22 06:20] LABS: Hemoglobin 11.3 g/dl (14.0-18.0); Mean Corpuscular Hemoglobin 30 pg (27-31)
[2016-05-22 06:28] LABS: Hematocrit 33 % (42-52); Mean Corpuscular HGB Conc 34 g/dl (31-36); Mean Corpuscular Volume 88 fL (80-94); Mean Platelet Volume 8 um3 (7.4-10.4); Red Blood Count 3.73 10^6/ul (4.0-5.4); Red Cell Distribution Width 14 % (10.5-15); White Blood Count 3.5 10^3/ul (3.5-10.8)
--- NOTE | 2016-05-22 06:29 | PN ---
PROGRESS NOTE: ADDENDUM: The patient's PTT returned elevated at 59.8. Given that he had received heparin subcu fo r DVT prophylaxis earlier today, this may be the reason for his elevated coagulation studies though his INR yesterday morning was 1.1 and today is 1.69. Given the derangements in his coagulation stud ies, this is a contraindication to tPA and tPA infusion was stopped. He received approximately half of the total volume of infusion. His NIH Stroke Scale was stable at the time when the infusion was stopped. [id number]/[facility] #: [id number]
[2016-05-22 06:35] LABS: BUN/Creatinine Ratio 24.1 (8-20); Calcium 8.3 mg/dL (8.6-10.3); EGFR African American 117.8 (>60); EGFR Non-African American 91.6 (>60); Potassium 4.4 mmol/L (3.5-5.0)
[2016-05-22 06:37] LABS: Add Diff/Slide Review? Slide Review Added; Comments Flag Yes
[2016-05-22] MEDS: fentaNYL Patch Check Q Shift 1 NOTE SCH ×2 (07:14→19:21)
[2016-05-22] MEDS ORDERED: Insulin LISPRO* 1 UNITS UNIT SUBCUT SCH (07:30)
[2016-05-22] MEDS ORDERED: Omeprazole CAP* 20 MG PO SCH (07:30)
--- NOTE | 2016-05-22 07:56 | RAD ---
Indication: Stroke symptoms. CT of the brain was performed without IV contrast. Ventricular structures are midline. No midline shift is noted. The extraction spaces are unremarkable. There is some mild central and cortical atrophy noted. There is no evidence of intracranial mass or hemorrhage. No other high or low density lesions are identified. When compared to previous exam of May 21, 2016 no significant change is noted. Mastoid air cells and paranasal sinuses are otherwise unremarkable IMPRESSION: No intracranial mass or hemorrhage is noted. Findings discussed with Dr. De Dios at [address] Craven from imaging head bone grinder as documented on PACS.
--- NOTE | 2016-05-22 07:58 | RAD ---
Indication: Hypertension, lung CA with stroke symptoms. Single frontal view of the chest done at 0215 hours is reviewed and compared to previous exam dated May 18, 2016. Prominent tortuous aorta is noted. Again noted is a perihilar soft tissue density in the left upper lobe corresponding to the left posterior suprahilar mass. This was identified on CT. No pleural fluid is identified. No pneumothorax is noted. IMPRESSION: Left suprahilar mass is present unchanged from previous exam. Lung king demonstrate no evidence of other areas of alveolar consolidation.
--- NOTE | 2016-05-22 08:27 | PN ---
Subjective Date of Service: 05/22/16 Interval History: Overnight events noted. Patient had recurrent symptoms prompting re-evaluation and initiation of tPA. Repeat coags prior to tPA noted to be abnormal so infusion stopped about correction through. This morning patient complaining of dry mouth. He finds it difficult to assess if his symptoms are any better or worse. He notes mostly problems with coordination on the L hand. Also felt like he was having trouble speaking but this was alleviated by mouth swab. Family History: Unchanged from Admission Social History: Unchanged from Admission Past Medical History: Unchanged from Admission Objective Active Medications: Albuterol (Ventolin 2.5 Mg/3 Ml Neb.Arabella*) 2.5 mg INH Q2H PRN PRN Reason: SOB/WHEEZING Atorvastatin Calcium (Lipitor*) 80 mg PO 1700 [facility] Last Admin: 05/21/16 18:39 Dose: 80 mg Bupropion HCl (Bupropion Xl*) 300 mg PO BEDTIME [facility] Last Admin: 05/21/16 21:40 Dose: 300 mg Dextrose (D50w Syringe 50 Ml*) 12.5 gm IV PUSH .FOR FS < 60 - SS PRN PRN Reason: FS < 60 Fentanyl (Duragesic Patch 100 Mcg/Hr *) 100 mcg TRANSDERM Q72H [facility] Last Admin: 05/21/16 14:36 Dose: 100 mcg Gabapentin (Neurontin Cap(*)) 800 mg PO TID [facility] Last Admin: 05/21/16 21:42 Dose: 800 mg Sodium Chloride (Ns 0.9% 1000 Ml*) 1,000 mls @ 75 mls/hr IV PER RATE [facility] Phenylephrine HCl 50 mg/ (Sodium Chloride) 250 mls @ 0.9 mls/hr IV .(Initial Rate) [facility] PRN Reason: 3 MCG/MIN Last Admin: 05/22/16 03:37 Dose: 0.9 mls/hr Sodium Chloride (Ns 0.9% 1000 Ml*) 500 mls @ 0 mls/hr IV WIDE OPEN [facility] PRN Reason: Wide Open Last Admin: 05/22/16 03:25 Dose: 1,000 mls/hr Insulin Human Lispro (Humalog*) 0 units SUBCUT AC [facility] PRN Reason: Protocol Magnesium Oxide (Magox 400 Tab*) 400 mg PO DAILY [facility] Ondansetron HCl (Zofran Inj*) 4 mg IV Q6H PRN PRN Reason: NAUSEA Oxycodone HCl (Roxycodone Tab*) 10 mg PO Q4H PRN PRN Reason: PAIN Last Admin: 05/21/16 14:31 Dose: 10 mg Pantoprazole Sodium (Protonix Iv*) 40 mg IV DAILY [facility] Last Admin: 05/22/16 05:16 Dose: 40 mg Pharmacy Profile Note (Fentanyl Patch Check Q Shift) 1 note N/A 0700,1900 [facility] Last Admin: 05/22/16 07:14 Dose: 1 note Trazodone HCl (Desyrel Tab*) 100 mg PO BEDTIME [facility] Last Admin: 05/21/16 21:41 Dose: 100 mg Venlafaxine HCl (Effexor Xr Cap*) 75 mg PO DAILY [facility] Vital Signs 05/21/16 05/21/16 05/21/16 11:00 11:30 12:00 Temperature Pulse Rate Respiratory 25 9 12 Rate Blood Pressure 178/108 137/72 118/75 (mmHg) O2 Sat by Pulse Oximetry 05/22/16 05/22/16 05/22/16 03:25 03:30 03:35 Temperature Pulse Rate 63 62 Respiratory 16 14 Rate Blood Pressure 93/57 88/55 96/49 (mmHg) O2 Sat by Pulse 98 98 Oximetry 05/22/16 05/22/16 06:15 08:00 Temperature 98.3 F Pulse Rate 64 Respiratory 11 Rate Blood Pressure 106/59 (mmHg) O2 Sat by Pulse 99 Oximetry Oxygen Devices in Use Now: None Appearance: Elderly, M, laying in bed in NAD Eyes: No Scleral Icterus Ears/Nose/Mouth/Throat: - - Dry MM Neck: NL Appearance and Movements; NL JVP Respiratory: Symmetrical Chest Expansion and Respiratory Effort, Clear to Auscultation Cardiovascular: NL Sounds; No Murmurs; No JVD, RRR Abdominal: NL Sounds; No Tenderness; No Distention Lymphatic: No Cervical Adenopathy Extremities: No Edema Skin: No Rash or Ulcers Neurological: Alert and Oriented x 3, - - L facial droop, tongue midline, L handgrip slightly weak, UE flexion/extension seems a bit weak B/L but equal, chronic RLE weakness, LLE with 4/5 flexion/extension, did not appreciate much pronator drift, [id number] fairly accurate Result Diagrams: 05/22/16 06:05 05/22/16 06:05 Additional Lab and Data: Lab Results 05/21/16 05/21/16 05/21/16 Range/Units 09:00 09:00 09:00 WBC 7.4 (3.5-10.8) 10^3/ul RBC 4.58 (4.0-5.4) 10^6/ul Hgb 13.5 L (14.0-18.0) g/dl Hct 40 L (42-52) % MCV 88 (80-94) fL MCH 30 (27-31) pg MCHC 34 (31-36) g/dl RDW 14 (10.5-15) % Plt Count 170 (150-450) 10^3/ul MPV 8 (7.4-10.4) um3 Neut % (Auto) 84.3 H (38-83) % Lymph % (Auto) 9.7 L (25-47) % Haakon % (Auto) 5.1 (1-9) % Eos % (Auto) 0.4 (0-6) % Baso % (Auto) 0.5 (0-2) % Absolute Neuts (auto) 6.3 (1.5-7.7) 10^3/ul Absolute Lymphs (auto) 0.7 L (1.0-4.8) 10^3/ul Absolute Monos (auto) 0.4 (0-0.8) 10^3/ul Absolute Eos (auto) 0 (0-0.6) 10^3/ul Absolute Basos (auto) 0 (0-0.2) 10^3/ul Absolute Nucleated RBC 0 10^3/ul Nucleated RBC % 0 INR (Anticoag Therapy) 1.10 (0.89-1.11) Sodium 127 L (133-145) mmol/L Potassium 4.6 (3.5-5.0) mmol/L Chloride 88 L (101-111) mmol/L Carbon Dioxide 24 (22-32) mmol/L Anion Gap 15 H (2-11) mmol/L BUN 18 (6-24) mg/dL Creatinine 0.95 (0.67-1.17) mg/dL Est GFR ( Amer) 100.8 (>60) Est GFR (Non-Af Amer) 78.4 (>60) BUN/Creatinine Ratio 18.9 (8-20) Glucose 551 H* (70-100) mg/dL Lactic Acid (0.5-2.0) mmol/L Calcium 9.4 (8.6-10.3) mg/dL Total Bilirubin 1.50 H (0.2-1.0) mg/dL AST 13 (13-39) U/L ALT 15 (7-52) U/L Alkaline Phosphatase 203 H (34-104) U/L Troponin I 0.00 (<0.04) ng/mL Total Protein 6.5 (6.4-8.9) g/dL Albumin 3.7 (3.2-5.2) g/dL Globulin 2.8 (2-4) g/dL Albumin/Globulin Ratio 1.3 (1-3) 05/21/16 Range/Units 09:00 WBC (3.5-10.8) 10^3/ul RBC (4.0-5.4) 10^6/ul Hgb (14.0-18.0) g/dl Hct (42-52) % MCV (80-94) fL MCH (27-31) pg MCHC (31-36) g/dl RDW (10.5-15) % Plt Count (150-450) 10^3/ul MPV (7.4-10.4) um3 Neut % (Auto) (38-83) % Lymph % (Auto) (25-47) % Haakon % (Auto) (1-9) % Eos % (Auto) (0-6) % Baso % (Auto) (0-2) % Absolute Neuts (auto) (1.5-7.7) 10^3/ul Absolute Lymphs (auto) (1.0-4.8) 10^3/ul Absolute Monos (auto) (0-0.8) 10^3/ul Absolute Eos (auto) (0-0.6) 10^3/ul Absolute Basos (auto) (0-0.2) 10^3/ul Absolute Nucleated RBC 10^3/ul Nucleated RBC % INR (Anticoag Therapy) (0.89-1.11) Sodium (133-145) mmol/L Potassium (3.5-5.0) mmol/L Chloride (101-111) mmol/L Carbon Dioxide (22-32) mmol/L Anion Gap (2-11) mmol/L BUN (6-24) mg/dL Creatinine (0.67-1.17) mg/dL Est GFR ( Amer) (>60) Est GFR (Non-Af Amer) (>60) BUN/Creatinine Ratio (8-20) Glucose (70-100) mg/dL Lactic Acid 2.0 (0.5-2.0) mmol/L Calcium (8.6-10.3) mg/dL Total Bilirubin (0.2-1.0) mg/dL AST (13-39) U/L ALT (7-52) U/L Alkaline Phosphatase (34-104) U/L Troponin I (<0.04) ng/mL Total Protein (6.4-8.9) g/dL Albumin (3.2-5.2) g/dL Globulin (2-4) g/dL Albumin/Globulin Ratio (1-3) Microbiology and Other Data: Microbiology 05/22/16 03:20 Nasal Screen MRSA (PCR)(MAKENNA) - Final Nasal Mrsa Negative Assess/Plan/Problems-Billing Assessment: CVA in a 71 yo M with hx of HTN, HLD, BPH, lung cancer currently on chemo, DM not on home medications, COPD - Patient Problems (1) CVA (cerebral vascular accident) Current Visit: Yes Comment: Appreciate Neurology assistance. S/P half tPA infusion started around 0230 and stopped at 0300 on 05/22. Holding ASA. CTA head/ neck unremarkable for stenosis. Continue tele. Echo showed PFO, will get LE dopplers. Continue statin for now. BPs have been soft, franklin-synephrine ordered overnight, now weaned off with stable BPs. IVF increased to 100 cc/hr EEG ordered as per neuro. Swallow eval pending. Will need repeat head CT at 24 hours after tPA. (2) Diabetes Current Visit: Yes Comment: Patient states his DM resolved after gastric bypass surgery although BGs have been quite high here. Will start insulin gtt for better control while in ICU. HbA1c pending. (3) HTN (hypertension) Current Visit: Yes Comment: Permissive. BPs have been low. Not on home medications. (4) Chronic pain Current Visit: Yes Comment: Continue fentanyl patch, gabapentin and oxycodone (5) Lung cancer Current Visit: Yes Comment: C6 spine lesion noted on imaging. Dr. Tran aware. Outpatient follow-up. (6) DVT prophylaxis Current Visit: Yes Comment: SCDs, s/p TPA
[2016-05-22] MEDS ORDERED: Insulin REGULAR(*) 1 UNITS UNIT IV PUSH ONE (08:35)
[2016-05-22] MEDS ORDERED: Aspirin Low Dose CHEW TAB* 81 MG PO SCH (09:00)
[2016-05-22] MEDS ORDERED: Aspirin SUPP* 300 MG PR SCH (09:00)
[2016-05-22] MEDS: Gabapentin CAP(*) 400 MG PO SCH ×3 (09:34→21:49)
[2016-05-22] MEDS: Venlafaxine EXT RELEASE CAP* 75 MG PO SCH (09:35)
[2016-05-22] MEDS: oxyCODONE TAB* 5 MG TAB PO PRN (09:35)
[2016-05-22] MEDS: Magnesium Oxide TAB* 400 MG PO SCH (09:35)
[2016-05-22] MEDS ORDERED: LORazepam INJ* 2 MG/ML 1 ML VIAL IV PUSH STA (10:14)
[2016-05-22] MEDS: Fosphenytoin(*) 1,000 MG in NS 0.9% 50 ML* 50 ML IVPB STA ×2 (10:26→13:50)
--- NOTE | 2016-05-22 11:41 | RAD ---
INDICATION: CVA, evaluate for DVT. COMPARISON: There are no prior studies available for comparison. TECHNIQUE: Multiple real-time, color flow and Doppler tracings of both lower extremities were obtained. FINDINGS: The common femoral, femoral, profunda femoral and popliteal veins all demonstrate normal compressibility, augmentation with compression and phasic response with respiration. The posterior tibial and peroneal veins demonstrate normal compressibility and augmentation with compression. IMPRESSION: NO EVIDENCE FOR DEEP VENOUS THROMBOSIS.
[2016-05-22] MEDS: Fosphenytoin(*) 100 MG/2 ML VIAL IVPB SCH (13:50)
[2016-05-22] MEDS ORDERED: NS 0.9% 1000 ML* 1,000 ML IV ONE (14:18)
[2016-05-22] MEDS: NS 0.9% 1000 ML* 1,000 ML IV SCH ×2 (15:19→23:25)
[2016-05-22] MEDS: Insulin REGULAR(*) 1 UNITS UNIT SUBCUT SCH (17:41)
[2016-05-22] MEDS: Atorvastatin* 80 MG TAB PO SCH (17:43)
[2016-05-22] MEDS: traZODone TAB* 100 MG PO SCH (21:50)
[2016-05-22] MEDS: [UNRECOGNIZED DRUG - OTHER] IVPB SCH (21:54)
[2016-05-22] MEDS: FOSPHENYTOIN IVPB SCH (21:54)
[2016-05-22] MEDS ORDERED: Fosphenytoin(*) 500 MG in NS 0.9% 50 ML* 50 ML IVPB ONE (22:04)
[2016-05-23] MEDS: NS 0.9% 500 ML BAG* 500 ML IV ONE (00:01)
--- NOTE | 2016-05-23 00:08 | EEG ---
ELECTROENCEPHALOGRAPHY: DATE OF STUDY: 05/22/16 LOCATION: The patient is an inpatient. ORDERING PHYSICIAN: Ramsey Stark MD CLINICAL PROBLEM: Dixon Dudley is a 71-year-old man with a history of lung cancer, who presented to the hospital yesterday with left facial droop that was present upon awakening. His symptoms improved during the day but then overnight he had recurrence of left facial weakness as well as left arm weakness and a t-PA bolus was initiated, but then discontinued when a PTT returned elevated. He has been sleepy with the above mentioned symptoms, and so EEG was requested to evaluate for epileptiform abnormalities. MEDICATIONS: 1. Phenylephrine. 2. Roxicodone. 3. Zofran. 4. Ventolin. 5. Bupropion. 6. Fentanyl. 7. Lipitor. 8. Effexor. 9. Protonix. 10. Magnesium oxide. 11. Neurontin. 12. Insulin. REPORT: The most notable feature of the interictal background was the presence of 2 seizures, which occurred out of sleep. The seizures consisted of rhythmic 2 to 3 Hz activity initially with superimposed faster frequencies that was maximal at C4, F4, and T4. After approximately 5 seconds, there was emergence of more discrete 2- Hz spike and slow wave activity, which also spread to involve the temporal region on the right. This activity ceased after approximately 15 seconds, both times it was noted. There was no clinical correlate. Otherwise, the waking background was briefly observed at the beginning and end of the study. There was evident fagbtavb-[id number] voltage and frequency gradients. Intermittently, there was some slowing noted in the right frontocentral region, which was in the delta range. There was a slow and poorly -sustained posterior rhythm of approximately 6 Hz, which was symmetrical. Attenuation of the occipital rhythm accompanied drowsiness. The sleep background was appropriately organized with well-developed sleep spindles and vertex waves. The sleep transients showed appropriate morphology and were bilaterally synchronous and symmetrical. CLINICAL IMPRESSION: This is an abnormal waking and sleep EEG due to the presence of 2 electrographic seizures without clinical correlate, which arose from the right frontocentral region. These findings are suggestive of increased epileptic potential and an active seizure focus in the right frontocentral region. As a result of this study, the patient will be given a milligram of Ativan and loaded with fosphenytoin and continuous EEG monitoring will be initiated. [id number]/[facility] #: [id number] MTDD
[2016-05-23] MEDS: Insulin REGULAR(*) 1 UNITS UNIT SUBCUT SCH ×2 (00:23→06:53)
[2016-05-23] MEDS: oxyCODONE TAB* 5 MG TAB PO PRN ×5 (00:24→16:33)
--- NOTE | 2016-05-23 00:43 | PN ---
PROGRESS NOTE: DATE OF FOLLOWUP: 05/22/16 OVERNIGHT EVENTS: The patient had an EEG this morning, which showed 2 electrographic seizures emanating from the right frontocentral region without any obvious clinical correlate. He was given Ativan 1 mg and fosphenytoin 1 g. MEDICATIONS: 1. Albuterol nebulizer as needed. 2. Atorvastatin 80 mg daily. 3. Bupropion 300 mg at bedtime. 4. Gabapentin 800 mg 3 times daily. 5. Fentanyl 100 mcg q.72 hours. 6. Insulin drip. 7. Magnesium oxide 400 mg daily. 8. Oxycodone 10 mg every 4 hour p.r.n. pain. 9. Pantoprazole 40 mg daily. 10. Phenylephrine 3 mcg per minute. 11. Normal saline bolus. 12. Trazodone 100 mg at bedtime. 13. Effexor 75 mg daily. PHYSICAL EXAMINATION: Vital Signs: Temperature 98.3, blood pressure 96/58 with a heart rate of 64 and oxygen saturation of 98%. General: Mr. Dudley is not alert, but is arousable to sternal rub. His heart is in regular rate and rhythm. Lungs are clear anteriorly. Neurologic examination, his speech is dysarthric. He continuous to have left facial weakness and some preferential weakness of his left upper extremity. He has no obvious sensory deficit in his extremities. His gaze is midline and versions are full. There are no adventitious movements. LABORATORY DATA: Laboratory karla from this morning includes a CBC notable for hematocrit of 33, platelet count of 113. CMP shows sodium of 131, chloride of 98, glucose of 416 and elevated BUN to creatinine ratio of 24.1. Cholesterol studies show triglycerides 82, cholesterol 134, LDL 74, HDL 44. Hemoglobin A1c of 5.9. IMPRESSION: Dixon Dudley is a 71-year-old man with a history of lung cancer who presented with left facial droop yesterday morning thought to be related to stroke. MRI was negative for stroke, his deficits resolved and then recurred overnight, at which point, he was given tPA, but when his laboratory studies revealed an elevated PTT, the TPA infusion was stopped. EEG this morning demonstrated subclinical seizures and he is now being treated with fosphenytoin and Ativan. He has been hooked up to continuous EEG monitoring to follow the course of his treatment. Once his seizures are under control, he should undergo MRI of the brain with and without contrast to look for evidence of metastatic disease, which may be responsible for these seizures. If there is nothing evident, LP should be considered. At this time, he should be continued on phenytoin 300 mg daily if he is taking p.o. and otherwise fosphenytoin 100 mg 3 times daily IV if not taking p.o. I have ordered a phenytoin level to be done at this time as well. [id number]/[facility] #: [id number] MTDD
[2016-05-23] MEDS ORDERED: LORazepam TAB(*) 0.5 MG ONE (03:53)
[2016-05-23] MEDS ORDERED: LORazepam TAB(*) 0.5 MG PO ONE (04:00)
[2016-05-23] MEDS: fentaNYL Patch Check Q Shift 1 NOTE SCH ×3 (06:55→19:20)
[2016-05-23 07:00] LABS: Hematocrit 36 % (42-52); Hemoglobin 12.4 g/dl (14.0-18.0); Mean Corpuscular HGB Conc 34 g/dl (31-36); Mean Corpuscular Hemoglobin 30 pg (27-31); Mean Corpuscular Volume 88 fL (80-94); Mean Platelet Volume 8 um3 (7.4-10.4); Red Blood Count 4.14 10^6/ul (4.0-5.4); Red Cell Distribution Width 14 % (10.5-15); White Blood Count 6.8 10^3/ul (3.5-10.8)
[2016-05-23 07:17] LABS: Calcium 7.2 mg/dL (8.6-10.3); EGFR African American 178.1 (>60); EGFR Non-African American 138.5 (>60); Potassium 3.6 mmol/L (3.5-5.0)
[2016-05-23 07:30] LABS: Phenytoin 18.3 mcg/mL (10-20)
[2016-05-23] MEDS: Pantoprazole IV* 40 MG IV SCH (08:51)
[2016-05-23] MEDS: Fosphenytoin(*) 100 MG/2 ML VIAL IVPB SCH ×5 (08:53→21:01)
[2016-05-23] MEDS: [UNRECOGNIZED DRUG - OTHER] IVPB SCH (08:54)
[2016-05-23] MEDS: FOSPHENYTOIN IVPB SCH (08:54)
[2016-05-23] MEDS: Gabapentin CAP(*) 400 MG PO SCH ×3 (09:04→21:01)
[2016-05-23] MEDS: Magnesium Oxide TAB* 400 MG PO SCH (09:04)
[2016-05-23] MEDS: Venlafaxine EXT RELEASE CAP* 75 MG PO SCH (09:04)
[2016-05-23] MEDS ORDERED: Dextrose 50% Syringe 50 ML* 25 GM/50 ML SYRINGE IV PUSH PRN (09:13)
--- NOTE | 2016-05-23 09:20 | PN ---
Progress Note - Progress Note SOAP: 05/23/16 neurology follow up note 71 year old lung cancer, admitted with left facial and arm weakness and dysarthria, which resolved to baseline. Initial concern was for a roustabout crew vascular event, with negative CT, MRI and CTA. He subsequently had recurrence of similar symptoms, treated with IV TPA, which was aborted due to repeat INR 1.6 (from 1.1 on admission). Due to decreased level of consciousness, EEG monitoring was pursued, showing recurrent albeit brief right fronto-central seizures (10-20 seconds long each) and inter ictal discharges (talked to dr daigle last night re EEG plus reviewed overnight EEG with tech this am). He was loaded with PHE, then for a level of 8, rebolused last night (per my discussion with med hospitalist) and today has a level of 18. He is awake this am, c/o itchiness and being jittery and out of sorts. He denies etoh use. alert and fully oriented, neuro exam non localizing save bilat ankle DF 4+/5 vws poor effort, R KE similar (he suggests chronic mostly right foot numb/weak in context of multiple prior lumbar surg); keeps fidgeting in bed cbc, chem, LFTs, cpk, lipids all nl/neg; plt 170 -> 110s --> 140s; inr was 1.1 - -> 1.7 --> 1.0 TTE was neg save PFO w/ mild shunting; LE dopplers neg i/p: 71 yo lung cancer, recurrent L facial and UE symptoms initially worked up/ treated as minor or recurrent stroke, got tpa (aborted due to repeat abnormal coags that have since normalized ? spurious), found to have recurrent localization related seizures. Clinically normalized overnight. 1. Cont PHE 100 tid po, recheck level tomorrow 2. Stop cEEG monitoring 3. Repeat head CT post 24hrs TPA (prob too agitated still to get good quality mri; snf per d/w dr daigle she wanted repeat contrasted mri to make sure no subtle metastatic disease)
--- NOTE | 2016-05-23 09:20 | PN ---
Subjective Date of Service: 05/23/16 Interval History: Patient seen this morning. Alert but very anxious. Recalls why he is in the hospital, says he has never had seizures in the past. Reports chronic back pain , denies chest pain, SOB. Denies any recent EtOH use, quit 6 years ago. Family History: Unchanged from Admission Social History: Unchanged from Admission Past Medical History: Unchanged from Admission Objective Active Medications: Albuterol (Ventolin 2.5 Mg/3 Ml Neb.Arabella*) 2.5 mg INH Q2H PRN Atorvastatin Calcium (Lipitor*) 80 mg PO 1700 JENNIE Dextrose (D50w Syringe 50 Ml*) 12.5 gm IV PUSH .FOR FS < 60 - SS PRN Dextrose (D50w Syringe 50 Ml*) 12.5 gm IV PUSH .FOR FS < 60 - SS PRN Fentanyl (Duragesic Patch 100 Mcg/Hr *) 100 mcg TRANSDERM Q72H JENNIE Fosphenytoin Sodium (Cerebyx(*)) 100 mg IVPB TID JENNIE Gabapentin (Neurontin Cap(*)) 800 mg PO TID [facility] Calcium Gluconate 2 gm/ Sodium (Chloride) 120 mls @ 120 mls/hr IV ONCE ONE Insulin Human Lispro (Humalog*) 0 - 10 units SUBCUT AC [facility] Lorazepam (Ativan Tab(*)) 0.5 mg PO Q6H PRN Magnesium Oxide (Magox 400 Tab*) 400 mg PO DAILY [facility] Ondansetron HCl (Zofran Inj*) 4 mg IV Q6H PRN Oxycodone HCl (Roxycodone Tab*) 10 mg PO Q4H PRN Pantoprazole Sodium (Protonix Iv*) 40 mg IV DAILY [facility] Pharmacy Profile Note (Fentanyl Patch Check Q Shift) 1 note N/A 0700,1900 [facility] Trazodone HCl (Desyrel Tab*) 100 mg PO BEDTIME [facility] Venlafaxine HCl (Effexor Xr Cap*) 75 mg PO DAILY [facility] Vital Signs 05/22/16 05/22/16 05/22/16 09:15 09:30 09:45 Temperature Pulse Rate 76 71 79 Respiratory 12 12 18 Rate Blood Pressure 117/66 106/68 118/67 (mmHg) O2 Sat by Pulse 97 100 100 Oximetry 05/22/16 05/22/16 05/22/16 10:00 10:01 10:26 Temperature Pulse Rate 73 85 Respiratory 15 15 9 Rate Blood Pressure 109/64 (mmHg) O2 Sat by Pulse 100 95 Oximetry 05/22/16 05/22/16 05/22/16 10:30 10:35 11:00 Temperature Pulse Rate 73 72 70 Respiratory 13 13 8 Rate Blood Pressure 94/65 113/69 88/54 (mmHg) O2 Sat by Pulse 100 99 98 Oximetry 05/22/16 05/22/16 05/22/16 11:24 11:30 12:00 Temperature 97.9 F Pulse Rate 65 64 61 Respiratory 6 9 5 Rate Blood Pressure 91/56 96/58 89/52 (mmHg) O2 Sat by Pulse 98 98 99 Oximetry 05/22/16 05/22/16 05/22/16 12:30 12:59 13:00 Temperature Pulse Rate 69 63 Respiratory 14 10 6 Rate Blood Pressure 90/58 77/57 (mmHg) O2 Sat by Pulse 99 98 Oximetry 05/22/16 05/22/16 05/22/16 13:01 13:30 14:00 Temperature Pulse Rate 61 71 Respiratory 9 13 Rate Blood Pressure 92/59 93/57 86/54 (mmHg) O2 Sat by Pulse 99 99 Oximetry 05/22/16 05/22/16 05/22/16 14:03 14:06 14:15 Temperature Pulse Rate 69 65 Respiratory 13 9 Rate Blood Pressure 80/49 79/53 77/50 (mmHg) O2 Sat by Pulse 99 98 Oximetry 05/22/16 05/22/16 05/22/16 14:30 14:45 15:00 Temperature Pulse Rate 60 59 58 Respiratory 8 15 5 Rate Blood Pressure 81/46 95/51 90/52 (mmHg) O2 Sat by Pulse 99 99 99 Oximetry 05/22/16 05/22/16 05/22/16 15:15 15:30 15:36 Temperature Pulse Rate 56 57 Respiratory 10 9 Rate Blood Pressure 99/50 104/53 (mmHg) O2 Sat by Pulse 100 100 99 Oximetry 05/22/16 05/22/16 05/22/16 15:37 15:44 15:45 Temperature 97.6 F Pulse Rate 57 58 Respiratory 15 14 Rate Blood Pressure 99/63 (mmHg) O2 Sat by Pulse 99 98 Oximetry 05/22/16 05/22/16 05/22/16 15:52 16:00 16:15 Temperature Pulse Rate 59 61 Respiratory 8 10 9 Rate Blood Pressure 104/68 112/53 (mmHg) O2 Sat by Pulse 99 99 Oximetry 05/22/16 05/22/16 05/22/16 16:30 16:45 17:00 Temperature Pulse Rate 59 58 58 Respiratory 8 5 9 Rate Blood Pressure 109/53 113/56 109/62 (mmHg) O2 Sat by Pulse 99 99 99 Oximetry 05/22/16 05/22/16 05/22/16 17:15 17:30 17:45 Temperature Pulse Rate 59 63 63 Respiratory 6 9 7 Rate Blood Pressure 114/52 102/55 107/69 (mmHg) O2 Sat by Pulse 100 99 99 Oximetry 05/22/16 05/22/16 05/22/16 18:00 18:15 18:30 Temperature Pulse Rate 69 62 70 Respiratory 16 8 15 Rate Blood Pressure 109/63 108/61 123/71 (mmHg) O2 Sat by Pulse 98 99 99 Oximetry 05/22/16 05/22/16 05/22/16 18:31 18:45 19:00 Temperature Pulse Rate 63 63 Respiratory 8 8 8 Rate Blood Pressure 120/70 126/62 (mmHg) O2 Sat by Pulse 99 98 Oximetry 05/22/16 05/22/16 05/22/16 19:15 19:30 19:45 Temperature Pulse Rate 61 61 59 Respiratory 9 8 10 Rate Blood Pressure 119/68 136/74 126/73 (mmHg) O2 Sat by Pulse 99 98 98 Oximetry 05/22/16 05/22/16 05/22/16 20:00 20:15 20:30 Temperature 98.8 F Pulse Rate 59 62 62 Respiratory 11 8 10 Rate Blood Pressure 147/65 130/77 128/85 (mmHg) O2 Sat by Pulse 98 97 97 Oximetry 05/22/16 05/22/16 05/22/16 20:45 21:00 21:15 Temperature Pulse Rate 62 66 65 Respiratory 11 11 8 Rate Blood Pressure 150/67 139/74 146/66 (mmHg) O2 Sat by Pulse 97 96 97 Oximetry 05/22/16 05/22/16 05/22/16 21:23 21:24 21:30 Temperature Pulse Rate 64 66 Respiratory 18 10 Rate Blood Pressure 130/75 (mmHg) O2 Sat by Pulse 98 98 97 Oximetry 05/22/16 05/22/16 05/22/16 21:45 22:00 22:15 Temperature Pulse Rate 69 79 67 Respiratory 9 20 11 Rate Blood Pressure 128/59 134/68 96/53 (mmHg) O2 Sat by Pulse 97 99 97 Oximetry 05/22/16 05/22/16 05/22/16 22:30 22:31 22:45 Temperature Pulse Rate 66 66 64 Respiratory 10 12 15 Rate Blood Pressure 91/49 90/60 98/52 (mmHg) O2 Sat by Pulse 97 97 99 Oximetry 05/22/16 05/22/16 05/22/16 22:46 23:00 23:01 Temperature Pulse Rate 66 67 67 Respiratory 14 11 9 Rate Blood Pressure 95/53 98/49 91/53 (mmHg) O2 Sat by Pulse 98 99 98 Oximetry 05/22/16 05/22/16 05/22/16 23:06 23:15 23:28 Temperature 97.7 F Pulse Rate 65 64 Respiratory 9 12 Rate Blood Pressure 91/49 (mmHg) O2 Sat by Pulse 98 98 Oximetry 05/22/16 05/22/16 05/22/16 23:30 23:31 23:33 Temperature Pulse Rate 66 66 66 Respiratory 14 9 13 Rate Blood Pressure 81/49 81/45 91/48 (mmHg) O2 Sat by Pulse 97 97 97 Oximetry 05/22/16 05/23/16 05/23/16 23:45 00:00 00:01 Temperature Pulse Rate 65 65 65 Respiratory 8 7 9 Rate Blood Pressure 78/42 79/47 (mmHg) O2 Sat by Pulse 97 97 97 Oximetry 05/23/16 05/23/16 05/23/16 00:15 00:30 00:38 Temperature Pulse Rate 71 77 66 Respiratory 10 17 10 Rate Blood Pressure 101/67 80/53 102/57 (mmHg) O2 Sat by Pulse 97 99 99 Oximetry 05/23/16 05/23/16 05/23/16 00:45 01:00 01:30 Temperature Pulse Rate 66 63 59 Respiratory 9 13 6 Rate Blood Pressure 101/46 96/51 89/48 (mmHg) O2 Sat by Pulse 98 98 99 Oximetry 05/23/16 05/23/16 05/23/16 01:45 01:47 02:00 Temperature Pulse Rate 61 60 60 Respiratory 10 8 7 Rate Blood Pressure 78/48 91/51 92/49 (mmHg) O2 Sat by Pulse 97 97 98 Oximetry 05/23/16 05/23/1605/23/17 02:15 02:16 02:20 Temperature Pulse Rate 61 61 66 Respiratory 11 8 14 Rate Blood Pressure 85/43 89/50 104/48 (mmHg) O2 Sat by Pulse 96 96 98 Oximetry 05/23/16 05/23/16 05/23/16 02:30 02:40 03:00 Temperature Pulse Rate 61 61 60 Respiratory 11 12 10 Rate Blood Pressure 89/48 95/61 104/46 (mmHg) O2 Sat by Pulse 98 97 97 Oximetry 05/23/16 05/23/16 05/23/16 03:30 03:56 03:57 Temperature Pulse Rate 72 Respiratory 14 20 20 Rate Blood Pressure 120/62 (mmHg) O2 Sat by Pulse 96 Oximetry 05/23/16 05/23/16 05/23/16 04:00 04:01 04:30 Temperature 97.8 F Pulse Rate 78 71 72 Respiratory 22 19 11 Rate Blood Pressure 128/66 119/78 (mmHg) O2 Sat by Pulse 98 98 99 Oximetry 05/23/16 05/23/16 05/23/16 05:00 05:30 06:00 Temperature Pulse Rate 68 69 69 Respiratory 15 13 11 Rate Blood Pressure 120/65 111/66 (mmHg) O2 Sat by Pulse 98 98 98 Oximetry 05/23/16 05/23/16 05/23/16 06:30 07:00 07:30 Temperature Pulse Rate 83 78 83 Respiratory 20 20 20 Rate Blood Pressure 131/104 131/72 142/82 (mmHg) O2 Sat by Pulse 99 100 100 Oximetry 05/23/16 05/23/16 07:55 08:00 Temperature 98.1 F Pulse Rate 82 Respiratory 16 Rate Blood Pressure (mmHg) O2 Sat by Pulse 100 Oximetry Oxygen Devices in Use Now: None Appearance: Elderly, M, laying in bed, visibly anxious and fidgety Eyes: No Scleral Icterus Ears/Nose/Mouth/Throat: Mucous Membranes Moist Neck: NL Appearance and Movements; NL JVP Respiratory: Symmetrical Chest Expansion and Respiratory Effort, Clear to Auscultation Cardiovascular: NL Sounds; No Murmurs; No JVD, RRR Abdominal: NL Sounds; No Tenderness; No Distention Lymphatic: No Cervical Adenopathy Extremities: No Edema Skin: No Rash or Ulcers Neurological: Alert and Oriented x 3, - - Diffiuclt exam due to agitation, facial droop seems to have resolved, cannot appreciate LUE weakness, possibly LLE weakness but limited by anxiety Lines/Tubes/Other Access: Clean, Dry and Intact Posey Result Diagrams: 05/23/16 06:45 05/23/16 06:45 Additional Lab and Data: Microbiology and Other Data: Assess/Plan/Problems-Billing Assessment: Seizures with weakness possibly Jaspal's paralysis in a 71 yo M with hx of HTN, HLD, BPH, lung cancer currently on chemo, DM not on home medications, COPD - Patient Problems (1) Seizure Current Visit: Yes Comment: Initial EEG showed 2 seizures in R frontocentral region. Placed on continuous EEG, final report pending but as per Dr. Ashton had some additional seizures. Was given bolus of phosphenytoin overnight with improvement in level. Continue fosphenytoin IV 100 mg TID, recheck level in AM. Seems like neuro deficits may have been 2/2 seizures. Will still need repeat CT scan and will need MRI w/w/o contrast of the brain to evaluate for any metastatic disease, and possibly an LP if this is negative. (2) Diabetes Current Visit: Yes Comment: HbA1c is 5.9%. Had significant hyperglycemia on admission which resolved with insulin gtt. Will continue Lispro SS for now may be able to stop. (3) Anxiety Current Visit: Yes Comment: Patient is on ativan at home, will continue here q6h instead of home BID (4) HTN (hypertension) Current Visit: Yes Comment: BPs stable. Stop IVF (5) Chronic pain Current Visit: Yes Comment: Continue fentanyl patch, gabapentin and oxycodone (6) Lung cancer Current Visit: Yes Comment: C6 spine lesion noted on imaging. Dr. Tran aware. Outpatient follow-up. (7) DVT prophylaxis Current Visit: Yes Comment: SCDs
[2016-05-23] MEDS ORDERED: Phenytoin CAP(*) 100 MG CAP.ER PO SCH (10:00)
--- NOTE | 2016-05-23 10:19 | EEG ---
INTERMEDIATE VIDEO/EEG MONITORING - Monitoring Monitoring Start Date: 05/22/16 Current Monitoring Session: 05/22/16 at 11:00 to 05/23/16 at 08:14 EEG Clinical Indication: Dixon Dudley is a 71 year old man with a history of lung cancer who presented to the hospital with left facial droop, dysarthria and left arm weakness, which improved initially. MRI was negative for stroke. Symptoms recurred and he was treated with tPA. EEG was obtained when his mental status was depressed in conjunction with left facial droop and left arm weakness and showed two subclinical seizures arising from the right frontocentral region. Long-term monitoring was initiated in order to follow the course of treatment and evaluate for continued subclinical seizures. Introduction: INTRODUCTION: The EEG was monitored from 19 scalp electrodes which consisted of the standard parasagittal, temporal and midline leads of the International 10-20 system. EEG data were recorded on an [employer] system with simultaneous MPEG-4 digital video recording of patient behavior. EEG recording was in a monopolar montage with all electrodes referenced to FCz. Significant behavioral events were signaled by an event button, or putative electrical seizure events were detected by a computer program. All EEG data were reviewed in their entirety on a monitor with reconstruction of montages and adjustments of sensitivity and filtering. Simultaneous patient behavior was viewed on an adjacent monitor and correlated with the EEG. - Medications Active Medications: Albuterol (Ventolin 2.5 Mg/3 Ml Neb.Arabella*) 2.5 mg INH Q2H PRN PRN Reason: SOB/WHEEZING Dextrose (D50w Syringe 50 Ml*) 12.5 gm IV PUSH .FOR FS < 60 - SS PRN PRN Reason: FS < 60 Fentanyl (Duragesic Patch 100 Mcg/Hr *) 100 mcg TRANSDERM Q72H [facility] Last Admin: 05/21/16 14:36 Dose: 100 mcg Fosphenytoin Sodium (Cerebyx(*)) 100 mg IVPB TID [facility] Last Admin: 05/23/16 09:39 Dose: Not Given Gabapentin (Neurontin Cap(*)) 800 mg PO TID [facility] Last Admin: 05/23/16 09:04 Dose: 800 mg Sodium Chloride (Ns 0.9% 500 Ml Bag*) 500 mls @ 0 mls/hr IV ONCE ONE PRN Reason: Wide Open Stop: 05/23/16 23:01 Last Admin: 05/23/16 00:01 Dose: 999 mls/hr Insulin Human Lispro (Humalog*) 0 - 10 units SUBCUT AC JENNIE PRN Reason: Protocol Lorazepam (Ativan Tab(*)) 0.5 mg PO Q6H PRN PRN Reason: ANXIETY Magnesium Oxide (Magox 400 Tab*) 400 mg PO DAILY [facility] Last Admin: 05/23/16 09:04 Dose: 400 mg Ondansetron HCl (Zofran Inj*) 4 mg IV Q6H PRN PRN Reason: NAUSEA Oxycodone HCl (Roxycodone Tab*) 10 mg PO Q4H PRN PRN Reason: PAIN Last Admin: 05/23/16 08:55 Dose: 10 mg Pantoprazole Sodium (Protonix Iv*) 40 mg IV DAILY [facility] Last Admin: 05/23/16 08:51 Dose: 40 mg Pharmacy Profile Note (Fentanyl Patch Check Q Shift) 1 note N/A 0700,1900 [facility] Last Admin: 05/23/16 06:55 Dose: 1 note Trazodone HCl (Desyrel Tab*) 100 mg PO BEDTIME [facility] Last Admin: 05/22/16 21:50 Dose: 100 mg Venlafaxine HCl (Effexor Xr Cap*) 75 mg PO DAILY [facility] Last Admin: 05/23/16 09:04 Dose: 75 mg - Description Background: Initially, the waking background showed diminished organization with reduced anterior-posterior voltage and frequency gradients. The patient was mostly asleep during the initial portion of the recording and when he woke briefly, there was no obvious posterior rhythm. By 19:30, organization improved during periods of wakefulness and there was a defined posterior dominant rhythm of 7 Hertz, which was symmetrical and showed normal reactivity. Anteriorly, there was the expected pattern of lower voltage and more irregular theta and beta rhythms. The sleep background was appropriately organized with well-developed spindles and vertex waves indicative of stage 2 sleep. These sleep transients showed appropriate morphology and were bilaterally synchronous and symmetrical. Development of diffuse delta range frequencies with dropout of stage 2 architecture accompanied transition to slow wave sleep, and a lower voltage mixed frequency pattern associated with eye movements was consistent with REM sleep. Intericatal Epileptiform Activity: There were frequent epileptiform abnormalities noted at C4 and T4 with a field to F4. These were low voltage spikes which were sometimes observed singly while at other times they appeared in short bursts of polyspike activity. Ictal Activity: The patient began having intermittent seizures at 19:50. These initially did not have a clinical correlate. The electrographic activity consisted of a build up of slowing and low voltage discharges at C4 and F4 which then evolved into rhythmic, sharply contoured theta activity and spread to involve the right parietal region as well (P4, P8). The activity slowed to approximately 3 Hz before stopping abruptly after 16 seconds. By 21:00, the electrographic seizure activity started to associate with some irregular movements of the left side of the patient's mouth. At 21:47, he had an electroclinical seizure where he began picking at his tongue /mouth with his left hand, indicating it felt like there was something stuck there. At 21:51, he had an electroclinical seizure where he had some chewing type movements. He had additional seizures at 21:53 and 22:05, then received fosphenytoin 500mg IV at 22:38. He began having intermittent seizures again at 04:04, associated with mouth movements. Other seizures were noted after this time that did not always have a clinical correlate. The last seizure occurred at 07:02. - Impression Impression: This is an abnormal long-term monitoring session. The background is slow and there are epileptiform discharges emanating from the right frontocentral region. In addition, there were intermittent seizures recorded, also emanating from the right frontocentral region but with spread into the parietal region. Some of these seizures were subclinical while others had associated chewing mouth movement or the patient indicated he had an abnormal sensation in his mouth/on his tongue and would try to pick at his mouth and tongue. The seizures were partially treated with a dose of fosphenytoin, but returned several hours later. These findings are consistent with acute, repetitive seizures of focal onset in the right frontocentral region.
[2016-05-23] MEDS: LORazepam TAB(*) 0.5 MG PO PRN ×2 (10:34→16:33)
[2016-05-23] MEDS ORDERED: Haloperidol INJ IV/IM* 5 MG/ML AMP IV SLOW PU PRN ×2 (12:34→15:37)
[2016-05-23] MEDS ORDERED: LORazepam INJ* 2 MG/ML 1 ML VIAL IV PUSH ONE ×2 (12:34→18:27)
[2016-05-23] MEDS: Insulin LISPRO* 1 UNITS UNIT SUBCUT SCH ×2 (13:03→18:10)
--- NOTE | 2016-05-23 15:09 | RAD ---
INDICATION: Cerebrovascular accident COMPARISON: Most recent CT of the brain is dated May 22, 2016 TECHNIQUE: Contiguous axial sections of the brain were obtained from the skull base to the vertex without contrast. FINDINGS: The ventricles, cisterns and sulci exhibit mild central greater than peripheral involutional change similar to the previous brain CT. The narvaez-white matter differentiation is adequately maintained and there is no sulcal effacement. No significant focal abnormality or mass effect is present. There is no evidence for intracranial hemorrhage. No significant focal osseous abnormality is present. The visualized portion of the paranasal sinuses and mastoid air cells appear clear. IMPRESSION: No acute intracranial abnormality.
[2016-05-23] MEDS ORDERED: Haloperidol INJ IV/IM* 5 MG/ML AMP ONE (15:39)
[2016-05-23] MEDS ORDERED: Haloperidol INJ IV/IM* 5 MG/ML AMP IV SLOW PU ONE (18:26)
[2016-05-23] MEDS ORDERED: LORazepam INJ* 2 MG/ML 1 ML VIAL ONE (18:27)
[2016-05-23] MEDS: traZODone TAB* 100 MG PO SCH (21:02)
[2016-05-23] MEDS: QUEtiapine TAB* 100 MG PO SCH (21:02)
[2016-05-23] MEDS ORDERED: Ziprasidone IM INJ* 20 MG/ML VIAL IM ONE (23:00)
[2016-05-24] MEDS: NS 0.9% 500 ML BAG* 500 ML IV ONE (04:04)
[2016-05-24] MEDS: oxyCODONE TAB* 5 MG TAB PO PRN ×3 (04:56→13:51)
[2016-05-24] MEDS: fentaNYL Patch Check Q Shift 1 NOTE SCH ×2 (07:04→19:16)
[2016-05-24] MEDS: LORazepam TAB(*) 0.5 MG PO PRN ×3 (07:48→23:22)
--- NOTE | 2016-05-24 08:18 | PN ---
Subjective Date of Service: 05/24/16 Interval History: Patient was increasingly agitated throughout yesterday and overnight. Received numerous sedatives/antipsychotics. This morning flailing in bed, speech garbled. Nursing reports he has been having some L sided facial twitching. No fever or chills. BGs running high again. Family History: Unchanged from Admission Social History: Unchanged from Admission Past Medical History: Unchanged from Admission Objective Active Medications: Albuterol (Ventolin 2.5 Mg/3 Ml Neb.Arabella*) 2.5 mg INH Q2H PRN Dextrose (D50w Syringe 50 Ml*) 12.5 gm IV PUSH .FOR FS < 60 - SS PRN Fentanyl (Duragesic Patch 100 Mcg/Hr *) 100 mcg TRANSDERM Q72H JENNIE Fosphenytoin Sodium (Cerebyx(*)) 100 mg IVPB TID JENNIE Gabapentin (Neurontin Cap(*)) 800 mg PO TID JENNIE Haloperidol Lactate (Haldol Inj Iv/Im*) 5 mg IV SLOW PU Q4H PRN Insulin Human Lispro (Humalog*) 0 - 10 units SUBCUT AC [facility] Lorazepam (Ativan Tab(*)) 0.5 mg PO Q6H PRN Magnesium Oxide (Magox 400 Tab*) 400 mg PO DAILY [facility] Ondansetron HCl (Zofran Inj*) 4 mg IV Q6H PRN Oxycodone HCl (Roxycodone Tab*) 10 mg PO Q4H PRN Pantoprazole Sodium (Protonix Iv*) 40 mg IV DAILY [facility] Pharmacy Profile Note (Fentanyl Patch Check Q Shift) 1 note N/A 0700,1900 [facility] Quetiapine Fumarate (Seroquel Tab*) 100 mg PO BEDTIME JENNIE Trazodone HCl (Desyrel Tab*) 100 mg PO BEDTIME [facility] Venlafaxine HCl (Effexor Xr Cap*) 75 mg PO DAILY [facility] Vital Signs 05/23/16 05/23/16 05/23/16 08:30 09:00 09:03 Temperature Pulse Rate 84 86 Respiratory 18 23 23 Rate Blood Pressure 142/76 137/79 (mmHg) O2 Sat by Pulse 99 98 Oximetry 05/23/16 05/23/16 05/23/16 18:39 19:00 19:49 Temperature 99.5 F Pulse Rate 96 Respiratory 19 19 Rate Blood Pressure 163/81 (mmHg) O2 Sat by Pulse 97 Oximetry 05/24/16 05/24/16 06:00 07:48 Temperature Pulse Rate 79 Respiratory 15 19 Rate Blood Pressure 116/71 (mmHg) O2 Sat by Pulse 100 Oximetry Oxygen Devices in Use Now: None Appearance: Elderly, M, laying in bed, agitated Eyes: No Scleral Icterus Ears/Nose/Mouth/Throat: - - Dry MM Neck: NL Appearance and Movements; NL JVP Respiratory: Symmetrical Chest Expansion and Respiratory Effort, Clear to Auscultation Cardiovascular: NL Sounds; No Murmurs; No JVD, RRR Abdominal: NL Sounds; No Tenderness; No Distention Lymphatic: No Cervical Adenopathy Extremities: No Edema Skin: No Rash or Ulcers Neurological: - - Lethargic, agitated, difficult to get to cooperate with exam, 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 Placed on continuous EEG which was also abnormal. ?continued subclinical seizures, will ask neurology whether patient may need a second agent. Phenytoin level slightly high, will discuss dosing per neuro. Seems like neuro deficits may have been 2/2 seizures. Will need MRI w/w/o contrast of the brain to evaluate for any metastatic disease, and possibly an LP if this is negative. (2) Diabetes Current Visit: Yes Comment: HbA1c is 5.9%. BGs initially helped with insulin gtt, now elevated again. ?2/2 haldol. Continue SSI, if continues to be elevated will consider restarting gtt. (3) Anxiety Current Visit: Yes Comment: Patient is on ativan at home, will continue here q6h instead of home BID (4) HTN (hypertension) Current Visit: Yes Comment: BPs have been labile with agitated, monitor for now (5) Chronic pain Current Visit: Yes Comment: Continue fentanyl patch, gabapentin and oxycodone (6) Lung cancer Current Visit: Yes Comment: C6 spine lesion noted on imaging. Dr. Tran aware. Outpatient follow-up. (7) DVT prophylaxis Current Visit: Yes Comment: SCDs
[2016-05-24] MEDS: Insulin LISPRO* 1 UNITS UNIT SUBCUT SCH ×3 (08:54→17:09)
[2016-05-24] MEDS ORDERED: Insulin LISPRO* 1 UNITS UNIT SUBCUT ONE ×3 (09:00→11:03)
[2016-05-24] MEDS: Pantoprazole IV* 40 MG IV SCH (09:09)
[2016-05-24] MEDS: Fosphenytoin(*) 100 MG/2 ML VIAL IVPB SCH ×3 (09:09→20:52)
[2016-05-24] MEDS: Magnesium Oxide TAB* 400 MG PO SCH (09:22)
[2016-05-24] MEDS: Venlafaxine EXT RELEASE CAP* 75 MG PO SCH (09:22)
[2016-05-24] MEDS: Gabapentin CAP(*) 400 MG PO SCH ×3 (09:22→21:10)
--- NOTE | 2016-05-24 10:13 | PN ---
Progress Note - Progress Note SOAP: 05/24/16 neurology follow up note 71 year old lung cancer, mult lumbar surg (baseline RLE weakness and numbness, on arnulfo 800 tid), admitted with left facial and arm weakness and dysarthria, skills trainer vascular event negative and summarized in prior notes, found to have recurrent albeit brief right fronto-central seizures and inter ictal discharges on EEG monitoring (despite baseline arnulfo as above), and treated with PHE ( bloused twice, on 100 tid, level 23 today). Looked clinically alert yest am for me, but overnight had agitation requiring use of psychotropic meds, also mult individually brief episodes of left facial twitching noted by nursing. and brother and law present (did not meet any family yest) and updated/understand situation. He is currently agitated, moving in bed, arousable but does not follow commands , face sym, pupils reactive, tone nl, ref sym. Save one or two diffuse myoclonic jerks and agitated semi purposeful thrashing in bed, no motor rhythmic activity noted at this time Head CT (post aborted tpa) reviewed and neg; mri from sev days ago also reviewed and concur no stroke, modest age related atrophy, no clear structural correlate with epileptiogenic focus i/p: 71 yo lung cancer, mult lumbar surg (baseline RLE weakness and numbness, on arnulfo 800 tid), recurrent L facial and UE symptoms initially worked up/treated as minor or recurrent stroke, got tpa (aborted due to repeat abnormal coags that have since normalized ? spurious), found to have recurrent localization related new onset right fronto-central seizure disorder. Overnight further brief seizures and encephalopathy despite therapeutic doses/levels of 2 AEDs. 1. Cont PHE 100 tid po, recheck level tomorrow 2. Cont baseline arnulfo 800 tid 3. Load LEV 1000mg and add maint 500mg bid 4. Clinically monitor; can inc LEV to 1000 bid if needed 5. d/w family and med team
[2016-05-24] MEDS ORDERED: Dextrose 50% Syringe 50 ML* 25 GM/50 ML SYRINGE IV PUSH PRN (10:54)
[2016-05-24] MEDS: fentaNYL PATCHs 100 MCG/HR TRANSDERM SCH (13:06)
[2016-05-24] MEDS: Dextrose 50% Syringe 50 ML* 25 GM/50 ML SYRINGE IV PUSH PRN (17:12)
[2016-05-24] MEDS: traZODone TAB* 100 MG PO SCH (20:52)
[2016-05-24] MEDS: QUEtiapine TAB* 100 MG PO SCH (20:52)
[2016-05-24] MEDS ORDERED: levETIRAcetam 500 MG IVPREMIX* 500 MG/100 ML BAG IV SCH (21:00)
[2016-05-25] MEDS: LORazepam TAB(*) 0.5 MG PO PRN (07:24)
[2016-05-25] MEDS: oxyCODONE TAB* 5 MG TAB PO PRN ×2 (07:24→21:20)
--- NOTE | 2016-05-25 07:51 | PN ---
Subjective Date of Service: 05/25/16 Interval History: Pt states he is feeling poorly. He can not get comfortable in the bed and has been restless all night. He states his face feels like "crap." When asked what he means he states he feels like he is having a hard time talking. He also states his fingers on the L feel funny. Objective Active Medications: Albuterol (Ventolin 2.5 Mg/3 Ml Neb.Arabella*) 2.5 mg INH Q2H PRN PRN Reason: SOB/WHEEZING Dextrose (D50w Syringe 50 Ml*) 12.5 gm IV PUSH .FOR FS < 60 - SS PRN PRN Reason: FS < 60 Last Admin: 05/24/16 17:12 Dose: 12.5 gm Dextrose (D50w Syringe 50 Ml*) 12.5 gm IV PUSH .FOR FS < 60 - SS PRN PRN Reason: FS < 60 Fentanyl (Duragesic Patch 100 Mcg/Hr *) 100 mcg TRANSDERM Q72H [facility] Last Admin: 05/24/16 13:06 Dose: 100 mcg Fosphenytoin Sodium (Cerebyx(*)) 100 mg IVPB TID [facility] Last Admin: 05/24/16 20:52 Dose: 100 mg Gabapentin (Neurontin Cap(*)) 800 mg PO TID [facility] Last Admin: 05/24/16 21:10 Dose: 800 mg Levetiracetam (Keppra Iv Premix*) 500 mg in 100 mls @ 400 mls/hr IV Q12H [facility] Last Admin: 05/24/16 20:52 Dose: 400 mls/hr Insulin Human Lispro (Humalog*) 0 - 10 units SUBCUT AC [facility] PRN Reason: Protocol Last Admin: 05/24/16 17:09 Dose: Not Given Lorazepam (Ativan Tab(*)) 0.5 mg PO Q6H PRN PRN Reason: ANXIETY Last Admin: 05/25/16 07:24 Dose: 0.5 mg Magnesium Oxide (Magox 400 Tab*) 400 mg PO DAILY [facility] Last Admin: 05/24/16 09:22 Dose: 400 mg Ondansetron HCl (Zofran Inj*) 4 mg IV Q6H PRN PRN Reason: NAUSEA Oxycodone HCl (Roxycodone Tab*) 10 mg PO Q4H PRN PRN Reason: PAIN Last Admin: 05/25/16 07:24 Dose: 10 mg Pantoprazole Sodium (Protonix Iv*) 40 mg IV DAILY [facility] Last Admin: 05/24/16 09:09 Dose: 40 mg Pharmacy Profile Note (Fentanyl Patch Check Q Shift) 1 note N/A 0700,1900 [facility] Last Admin: 05/24/16 19:16 Dose: 1 note Quetiapine Fumarate (Seroquel Tab*) 100 mg PO BEDTIME [facility] Last Admin: 05/24/16 20:52 Dose: 100 mg Trazodone HCl (Desyrel Tab*) 100 mg PO BEDTIME [facility] Last Admin: 05/24/16 20:52 Dose: 100 mg Venlafaxine HCl (Effexor Xr Cap*) 75 mg PO DAILY [facility] Last Admin: 05/24/16 09:22 Dose: 75 mg Vital Signs 05/24/16 05/24/16 05/24/16 07:48 08:00 09:00 Temperature Pulse Rate 94 94 Respiratory 19 17 19 Rate Blood Pressure 150/86 142/70 (mmHg) O2 Sat by Pulse 97 100 Oximetry 05/24/16 05/24/16 05/24/16 09:34 10:00 11:00 Temperature 99.9 F Pulse Rate 92 104 Respiratory 17 20 Rate Blood Pressure 110/72 (mmHg) O2 Sat by Pulse 99 100 Oximetry 05/24/16 05/24/16 05/24/16 11:03 11:19 11:40 Temperature 99.1 F Pulse Rate 102 Respiratory 23 13 Rate Blood Pressure 106/86 (mmHg) O2 Sat by Pulse 98 Oximetry 05/24/16 05/24/16 05/24/16 12:00 12:17 13:00 Temperature 97.7 F Pulse Rate 84 Respiratory 14 22 Rate Blood Pressure 111/81 136/106 (mmHg) O2 Sat by Pulse 99 Oximetry 05/24/16 05/24/16 05/24/16 13:05 13:06 13:51 Temperature Pulse Rate Respiratory 25 18 19 Rate Blood Pressure 153/87 (mmHg) O2 Sat by Pulse Oximetry 05/24/16 05/24/16 05/24/16 14:00 15:00 15:01 Temperature Pulse Rate 85 95 93 Respiratory 13 21 19 Rate Blood Pressure 102/73 156/94 (mmHg) O2 Sat by Pulse 99 99 99 Oximetry 03/05/24/16 05/24/16 16:00 17:00 17:58 Temperature 97.3 F Pulse Rate 88 79 Respiratory 22 15 14 Rate Blood Pressure 161/78 138/65 (mmHg) O2 Sat by Pulse 99 99 Oximetry 05/24/16 05/24/16 05/24/16 18:00 19:00 20:00 Temperature 98.2 F Pulse Rate 72 86 77 Respiratory 15 18 17 Rate Blood Pressure 130/63 147/83 128/75 (mmHg) O2 Sat by Pulse 99 99 100 Oximetry 05/24/16 05/24/16 05/24/16 21:00 21:25 22:00 Temperature Pulse Rate 77 81 76 Respiratory 13 14 15 Rate Blood Pressure 138/80 102/68 (mmHg) O2 Sat by Pulse 99 98 99 Oximetry 05/24/16 05/24/16 05/24/16 23:00 23:07 23:22 Temperature Pulse Rate 79 80 Respiratory 16 18 21 Rate Blood Pressure 126/73 (mmHg) O2 Sat by Pulse 99 100 Oximetry 05/25/16 05/25/16 05/25/16 00:00 00:01 01:00 Temperature 97.7 F Pulse Rate 87 88 79 Respiratory 19 16 14 Rate Blood Pressure 110/64 127/69 (mmHg) O2 Sat by Pulse 98 97 98 Oximetry 05/25/16 05/25/16 05/25/16 02:00 03:00 03:49 Temperature 98.5 F Pulse Rate 99 84 Respiratory 22 17 Rate Blood Pressure 158/80 129/68 (mmHg) O2 Sat by Pulse 99 98 Oximetry 05/25/16 05/25/16 05/25/16 04:00 04:53 04:54 Temperature 98.5 F Pulse Rate 79 85 84 Respiratory 17 19 18 Rate Blood Pressure 106/71 135/72 133/69 (mmHg) O2 Sat by Pulse 98 99 99 Oximetry 05/25/16 05/25/16 05/25/16 05:00 06:00 07:00 Temperature Pulse Rate 80 83 114 Respiratory 16 15 23 Rate Blood Pressure 139/94 128/78 (mmHg) O2 Sat by Pulse 100 99 99 Oximetry 05/25/16 05/25/16 05/25/16 07:01 07:24 07:32 Temperature 97.8 F Pulse Rate 110 Respiratory 22 30 Rate Blood Pressure 163/89 (mmHg) O2 Sat by Pulse 100 Oximetry Oxygen Devices in Use Now: None Appearance: Elderly thin male lying in bed, squirming all over the bed, NAD Eyes: No Scleral Icterus Ears/Nose/Mouth/Throat: Mucous Membranes Moist Respiratory: Symmetrical Chest Expansion and Respiratory Effort, Clear to Auscultation Cardiovascular: NL Sounds; No Murmurs; No JVD, No Edema, - - tachycardic but regular Abdominal: - - BS+ soft, ND, mildly tender to palpation LLQ Extremities: No Clubbing, Cyanosis Skin: No Rash or Ulcers, No Nodules or Sclerosis Neurological: - - oriented to being in a hospital but states [facility], knows the town is [place], knows he is in the ICU Result Diagrams: 05/23/16 06:45 05/23/16 06:45 Additional Lab and Data: Microbiology and Other Data: Assess/Plan/Problems-Billing Mr Dudley is a 71 yo M with a h/o HTN, HLD, BPH, lung cancer currently on chemo, DM not on home medications and COPD who presented to the ER with c/o L facial weakness and dysarthia and admitted for TIA vs CVA, improved then worsened again and received about 1/2 dose of tPA (stopped for abnormal INR) before he was identified to be having subclinical seizures with weakness possibly Jaspal's paralysis. - Patient Problems (1) Seizure Current Visit: Yes Status: Acute Code(s): R56.9 - UNSPECIFIED CONVULSIONS SNOMED Code(s): 30139740 Comment: The patient's mental status today is improved from yesterday but he is still very restless. Doubt the restlessness is seizure related but he could be post ictal vs delirious vs medication effects. Continue phenytoin 100mg TID and keppra 500mg BID for now. Will eventually need an MRI with/without contrast to eval for metastases however he currently will not be able to stay still enough for the test. Dr. Tompkins believes the MRI can likely be done as an outpatient if he continues to improve. He may need STR following this hospitalization. Transfer to floor today. PT eval. (2) Diabetes Current Visit: Yes Status: Acute Code(s): E11.9 - TYPE 2 DIABETES MELLITUS WITHOUT COMPLICATIONS SNOMED Code(s): 92829186 Comment: The patient's HbA1c is 5.9% indicating pre-diabetes. Sugars have fluctuated quite a bit. For now continue to monitor and utilize the lispro sliding scale. (3) HTN (hypertension) Current Visit: Yes Status: Acute Code(s): I10 - ESSENTIAL (PRIMARY) HYPERTENSION SNOMED Code(s): 94284720 Comment: BPs have fluctated quite a bit of the last several days. Continue to monitor. (4) Lung cancer Current Visit: Yes Status: Acute Code(s): C34.90 - MALIGNANT NEOPLASM OF UNSP PART OF UNSP BRONCHUS OR LUNG SNOMED Code(s): 301083965 Comment: C6 spine lesion noted on imaging. Dr. Tran aware. Outpatient follow-up. (5) Anxiety Current Visit: Yes Status: Acute Code(s): F41.9 - ANXIETY DISORDER, UNSPECIFIED SNOMED Code(s): 64262718 Comment: Continue prn ativan for baseline anxiety and now restlessness. (6) Chronic pain Current Visit: Yes Status: Acute Code(s): G89.29 - OTHER CHRONIC PAIN SNOMED Code(s): 80572935 Comment: Continue fentanyl patch, gabapentin and oxycodone. PT denies pain currently. (7) DVT prophylaxis Current Visit: Yes Status: Acute Code(s): DYH6890 - SNOMED Code(s): 088344828 Comment: SCDs (8) DNR (do not resuscitate) Current Visit: Yes Status: Acute
--- NOTE | 2016-05-25 07:58 | PN ---
Progress Note - Progress Note SOAP: 05/25/16 neurology follow up note 71 year old lung cancer, mult lumbar surg (baseline RLE weakness and numbness, on arnulfo 800 tid), admitted with left facial and arm weakness and dysarthria, health educator vascular event negative and summarized in prior notes, found to have recurrent albeit brief right fronto-central seizures and inter ictal discharges on EEG monitoring (despite baseline arnulfo as above), and treated with PHE ( bolused twice, on 100 tid maintenance, level 23 on 05/24, 22 today), then had LEV 500 bid added 05/24 for recurrent left facial twitching episodes. no overnight further seizures, but persistent agitation requiring use of psychotropic meds. case reviewed w/ med attending. currently agitated, responding to questions and making sarcastic comments, moving in bed AE, says leave me alone ie limited formal exam, but no motor rhythmic activity no interval tests of note save aed level as above i/p: 71 yo lung cancer, mult lumbar surg (baseline RLE weakness and numbness, on arnulfo 800 tid), recurrent L facial and UE symptoms initially worked up/treated as minor or recurrent stroke, got tpa (aborted due to repeat abnormal coags that have since normalized ? spurious), found to have recurrent localization related new onset right fronto-central seizure disorder. Overnight agitation/ encephalopathy, likely multi factorial 1.Cont PHE 100 tid po, baseline arnulfo 800 tid, LEV 500mg bid (if further seizures latter can be titrated) 2. if possible, minimize sedating meds, allow to normalize and mobilize, may need rehab 3. will sign out - different neuro attending tomorrow - will need outpatient follow up as well (initially seen by dr daigle)
[2016-05-25 08:17] LABS: BUN/Creatinine Ratio 17.9 (8-20); Calcium 8.7 mg/dL (8.6-10.3); EGFR African American 126.6 (>60); EGFR Non-African American 98.4 (>60); Potassium 4.4 mmol/L (3.5-5.0)
[2016-05-25] MEDS ORDERED: Insulin LISPRO* 1 UNITS UNIT SUBCUT ONE (08:25)
[2016-05-25] MEDS: Pantoprazole IV* 40 MG IV SCH (08:39)
[2016-05-25] MEDS: Magnesium Oxide TAB* 400 MG PO SCH (08:39)
[2016-05-25] MEDS: Venlafaxine EXT RELEASE CAP* 75 MG PO SCH (08:39)
[2016-05-25] MEDS: levETIRAcetam TAB* 500 MG PO SCH ×2 (08:39→21:21)
[2016-05-25] MEDS: Phenytoin CAP(*) 100 MG CAP.ER PO SCH ×3 (08:39→21:21)
[2016-05-25] MEDS: fentaNYL Patch Check Q Shift 1 NOTE SCH ×2 (09:26→19:25)
[2016-05-25] MEDS: Insulin LISPRO* 1 UNITS UNIT SUBCUT SCH ×3 (09:27→17:11)
[2016-05-25] MEDS: Gabapentin CAP(*) 400 MG PO SCH ×3 (09:41→21:20)
--- NOTE | 2016-05-25 21:10 | PN ---
Progress Note - Progress Note Note: Asked to assess patient for complaint of chest pain. On arrival, patient resting comfortably but when asked he reports chest pain and requests oxycodone. He denies shortness of breath, nausea, or other associated symptom. Vitals stable, heart with S1, S2, and no MRG, lungs CTAB. Low suspicion for acute coronary syndrome but will check trop and EKG. Requested that nurse administer oxycodone.
[2016-05-25] MEDS: QUEtiapine TAB* 100 MG PO SCH (23:33)
[2016-05-25] MEDS: traZODone TAB* 100 MG PO SCH (23:33)
[2016-05-26] MEDS: QUEtiapine TAB* 100 MG PO SCH (00:42)
[2016-05-26] MEDS: traZODone TAB* 100 MG PO SCH (00:42)
[2016-05-26] MEDS: LORazepam TAB(*) 0.5 MG PO PRN (03:38)
[2016-05-26] MEDS: oxyCODONE TAB* 5 MG TAB PO PRN ×2 (03:38→06:55)
[2016-05-26] MEDS: fentaNYL Patch Check Q Shift 1 NOTE SCH ×2 (07:23→20:06)
[2016-05-26] MEDS ORDERED: Al Hydrox/Mg Hydrox/Simet LIQ* 30 ML UDC PO ONE (09:03)
--- NOTE | 2016-05-26 09:04 | PN ---
Subjective Date of Service: 05/26/16 Interval History: Pt had a very restless night last night and became very agitated, urinating on the floor, demanding pain medications. This am I awake him from sleep, he states that he is having chest pain/upper abdominal pain. He describes a dull pain and burning pain in his chest. He asks to eat breakfast. He c/o chest pain last night-note reviewed from [facility] [employer]IST[employer]. Objective Active Medications: Albuterol (Ventolin 2.5 Mg/3 Ml Neb.Arabella*) 2.5 mg INH Q2H PRN PRN Reason: SOB/WHEEZING Dextrose (D50w Syringe 50 Ml*) 12.5 gm IV PUSH .FOR FS < 60 - SS PRN PRN Reason: FS < 60 Last Admin: 05/24/16 17:12 Dose: 12.5 gm Fentanyl (Duragesic Patch 100 Mcg/Hr *) 100 mcg TRANSDERM Q72H [facility] Last Admin: 05/24/16 13:06 Dose: 100 mcg Gabapentin (Neurontin Cap(*)) 800 mg PO TID [facility] Last Admin: 05/25/16 21:20 Dose: 800 mg Insulin Human Lispro (Humalog*) 0 - 10 units SUBCUT AC [facility] PRN Reason: Protocol Last Admin: 05/25/16 17:11 Dose: Not Given Levetiracetam (Keppra Tab*) 500 mg PO BID [facility] Last Admin: 05/25/16 21:21 Dose: 500 mg Lorazepam (Ativan Tab(*)) 0.5 mg PO Q6H PRN PRN Reason: ANXIETY Last Admin: 05/26/16 03:38 Dose: 0.5 mg Magnesium Oxide (Magox 400 Tab*) 400 mg PO DAILY [facility] Last Admin: 05/25/16 08:39 Dose: 400 mg Ondansetron HCl (Zofran Inj*) 4 mg IV Q6H PRN PRN Reason: NAUSEA Oxycodone HCl (Roxycodone Tab*) 10 mg PO Q4H PRN PRN Reason: PAIN Last Admin: 05/26/16 06:55 Dose: 10 mg Pantoprazole Sodium (Protonix Iv*) 40 mg IV DAILY [facility] Last Admin: 05/25/16 08:39 Dose: 40 mg Pharmacy Profile Note (Fentanyl Patch Check Q Shift) 1 note N/A 0700,1900 [facility] Last Admin: 05/26/16 07:23 Dose: Not Given Phenytoin Sodium (Dilantin Cap(*)) 100 mg PO TID [facility] Last Admin: 05/25/16 21:21 Dose: 100 mg Quetiapine Fumarate (Seroquel Tab*) 100 mg PO BEDTIME [facility] Last Admin: 05/26/16 00:42 Dose: 100 mg Trazodone HCl (Desyrel Tab*) 100 mg PO BEDTIME [facility] Last Admin: 05/26/16 00:42 Dose: 100 mg Venlafaxine HCl (Effexor Xr Cap*) 75 mg PO DAILY [facility] Last Admin: 05/25/16 08:39 Dose: 75 mg Vital Signs 05/25/16 05/25/16 05/25/16 10:38 14:23 15:26 Temperature 97.5 F 99.0 F Pulse Rate 101 84 Respiratory 12 14 16 Rate Blood Pressure 133/75 116/74 (mmHg) O2 Sat by Pulse 97 100 Oximetry 05/25/16 05/25/16 05/25/16 16:05 16:23 19:21 Temperature Pulse Rate 101 79 Respiratory 12 12 16 Rate Blood Pressure 129/63 (mmHg) O2 Sat by Pulse 97 99 Oximetry 05/25/16 05/25/16 05/25/16 20:00 20:27 21:20 Temperature Pulse Rate 79 Respiratory 18 16 22 Rate Blood Pressure (mmHg) O2 Sat by Pulse 99 Oximetry 05/25/16 05/25/16 05/25/16 22:54 23:20 23:58 Temperature 97.9 F 98.7 F Pulse Rate 84 88 Respiratory 16 16 16 Rate Blood Pressure 137/86 117/58 (mmHg) O2 Sat by Pulse 100 99 Oximetry 05/26/16 05/26/16 05/26/16 03:33 03:38 05:11 Temperature 97.5 F Pulse Rate 101 Respiratory 16 16 16 Rate Blood Pressure 149/74 (mmHg) O2 Sat by Pulse 100 Oximetry 05/26/16 05/26/16 06:55 08:26 Temperature Pulse Rate 84 Respiratory 16 15 Rate Blood Pressure (mmHg) O2 Sat by Pulse 99 Oximetry Oxygen Devices in Use Now: None Appearance: Elderly thin male lying in bed sleeping, awakens to voice, NAD Eyes: No Scleral Icterus Ears/Nose/Mouth/Throat: Mucous Membranes Moist Respiratory: Symmetrical Chest Expansion and Respiratory Effort, Clear to Auscultation Cardiovascular: NL Sounds; No Murmurs; No JVD, RRR, No Edema, - - + pain to palpation of L chest wall Abdominal: - - BS+ soft, ND, marked tenderness to palpation of epigastrum and LUQ Extremities: No Clubbing, Cyanosis Skin: No Rash or Ulcers, No Nodules or Sclerosis Neurological: - - less restless this AM, speech is mildly dysarthric Result Diagrams: 05/23/16 06:45 05/25/16 07:50 Additional Lab and Data: Microbiology and Other Data: Assess/Plan/Problems-Billing Mr Dudley is a 71 yo M with a h/o HTN, HLD, BPH, lung cancer currently on chemo, DM not on home medications and COPD who presented to the ER with c/o L facial weakness and dysarthia and admitted for TIA vs CVA, improved then worsened again and received about 1/2 dose of tPA (stopped for abnormal INR) before he was identified to be having subclinical seizures with weakness possibly Jaspal's paralysis. - Patient Problems (1) Seizure Current Visit: Yes Status: Acute Code(s): R56.9 - UNSPECIFIED CONVULSIONS SNOMED Code(s): 02604293 Comment: Continue phenytoin 100mg TID and keppra 500mg BID. Just now he has been c/o feeling like the L corner of his mouth is "jumping." If pt calms down today can get MRI with/without contrast. During writing this note the patient was heard calling out from his room stating "help me." I went to see him and he was severely agtiated, flopping around on the bed and yelling. This was actually the most coherent he had been stating why are you denying a dying man his medications (he was speaking of ativan). We discussed that he had been receiving it over the last couple days without any improvement in his symptoms. I told him I also discontinued this medication due to his altered mental status. (2) Diabetes Current Visit: Yes Status: Acute Code(s): E11.9 - TYPE 2 DIABETES MELLITUS WITHOUT COMPLICATIONS SNOMED Code(s): 38822538 Comment: Sugars are still all over the place. Unclear what is driving up his blood sugars. Will start lantus 3 units SQ daily (I am hesitant to go up any further due to at times low normal blood sugars) (3) HTN (hypertension) Current Visit: Yes Status: Acute Code(s): I10 - ESSENTIAL (PRIMARY) HYPERTENSION SNOMED Code(s): 41055583 Comment: BPs is under good control. Continue to monitor. (4) Lung cancer Current Visit: Yes Status: Acute Code(s): C34.90 - MALIGNANT NEOPLASM OF UNSP PART OF UNSP BRONCHUS OR LUNG SNOMED Code(s): 305745415 Comment: C6 spine lesion noted on imaging. Dr. Tran aware. Outpatient follow-up. (5) Anxiety Current Visit: Yes Status: Acute Code(s): F41.9 - ANXIETY DISORDER, UNSPECIFIED SNOMED Code(s): 63576598 Comment: Pt is severely agitated. He at times has demanded ativan and pain medications. It is not clear if this is his baseline level of anxiety/ agitation. (6) Chronic pain Current Visit: Yes Status: Acute Code(s): G89.29 - OTHER CHRONIC PAIN SNOMED Code(s): 45382713 Comment: Continue fentanyl patch, gabapentin and start prn IV dilaudid as he states his pain is uncontrolled though last night he ripped off his fentanyl patch. (7) DVT prophylaxis Current Visit: Yes Status: Acute Code(s): UYI9329 - SNOMED Code(s): 019355894 Comment: Start SQ heparin (8) DNR (do not resuscitate) Current Visit: Yes Status: Acute
[2016-05-26] MEDS ORDERED: HYDROmorphone* 1 MG/ML 1 ML SYR IV SLOW PU PRN ×2 (09:10→19:31)
[2016-05-26] MEDS ORDERED: Insulin LISPRO* 1 UNITS UNIT SUBCUT ONE ×2 (09:11→12:23)
[2016-05-26] MEDS ORDERED: Insulin GLARGINE(*) 1 UNITS UNIT SUBCUT SCH (10:00)
[2016-05-26] MEDS ORDERED: LORazepam INJ* 2 MG/ML 1 ML VIAL IV PUSH PRN (10:01)
[2016-05-26] MEDS: Gabapentin CAP(*) 400 MG PO SCH ×2 (10:03→14:41)
[2016-05-26] MEDS: Phenytoin CAP(*) 100 MG CAP.ER PO SCH ×2 (10:04→14:42)
[2016-05-26] MEDS: levETIRAcetam TAB* 500 MG PO SCH (10:04)
[2016-05-26] MEDS: Venlafaxine EXT RELEASE CAP* 75 MG PO SCH (10:05)
[2016-05-26] MEDS: Magnesium Oxide TAB* 400 MG PO SCH (10:06)
--- NOTE | 2016-05-26 10:15 | PN ---
Progress Note - Progress Note SOAP: Subjective: garbled speech, very agitated right now. confused and frustrated about speech and facial movements. Objective: Vital Signs Temp Pulse Resp BP Pulse Ox 97.5 F 84 20 149/74 99 05/26/16 03:33 05/26/16 08:26 05/26/16 09:26 05/26/16 03:33 05/26/16 08:26 agitated moving all over thin distant breath sounds s1 s2 nl soft nt +Bs no le edema A+O x 3 after some orienting, garbled speech comes in and out moving all extremities, tremulous Albuterol (Ventolin 2.5 Mg/3 Ml Neb.Arabella*) 2.5 mg INH Q2H PRN PRN Reason: SOB/WHEEZING Dextrose (D50w Syringe 50 Ml*) 12.5 gm IV PUSH .FOR FS < 60 - SS PRN PRN Reason: FS < 60 Last Admin: 05/24/16 17:12 Dose: 12.5 gm Fentanyl (Duragesic Patch 100 Mcg/Hr *) 100 mcg TRANSDERM Q72H [facility] Last Admin: 05/24/16 13:06 Dose: 100 mcg Gabapentin (Neurontin Cap(*)) 800 mg PO TID [facility] Last Admin: 05/26/16 10:03 Dose: 800 mg Heparin Sodium (Porcine) (Heparin Vial(*)) 5,000 units SUBCUT Q8HR [facility] Hydromorphone HCl (Dilaudid Iv*) 1 mg IV SLOW PU Q4H PRN PRN Reason: PAIN Last Admin: 05/26/16 09:26 Dose: 1 mg Insulin Glargine (Lantus(*)) 3 units SUBCUT Q24H [facility] Insulin Human Lispro (Humalog*) 0 - 10 units SUBCUT AC [facility] PRN Reason: Protocol Last Admin: 05/25/16 17:11 Dose: Not Given Levetiracetam (Keppra Tab*) 500 mg PO BID [facility] Last Admin: 05/26/16 10:04 Dose: 500 mg Lorazepam (Ativan Inj*) 0.5 mg IV PUSH Q4H PRN PRN Reason: Anxiety/agitation Magnesium Oxide (Magox 400 Tab*) 400 mg PO DAILY [facility] Last Admin: 05/26/16 10:06 Dose: 400 mg Omeprazole (Prilosec Cap*) 20 mg PO 0600 [facility] Ondansetron HCl (Zofran Inj*) 4 mg IV Q6H PRN PRN Reason: NAUSEA Pharmacy Profile Note (Fentanyl Patch Check Q Shift) 1 note N/A 0700,1900 [facility] Last Admin: 05/26/16 07:23 Dose: Not Given Phenytoin Sodium (Dilantin Cap(*)) 100 mg PO TID [facility] Last Admin: 05/26/16 10:04 Dose: 100 mg Quetiapine Fumarate (Seroquel Tab*) 100 mg PO BEDTIME [facility] Last Admin: 05/26/16 00:42 Dose: 100 mg Trazodone HCl (Desyrel Tab*) 100 mg PO BEDTIME [facility] Last Admin: 05/26/16 00:42 Dose: 100 mg Venlafaxine HCl (Effexor Xr Cap*) 75 mg PO DAILY [facility] Last Admin: 05/26/16 10:05 Dose: 75 mg Assessment: 71 yo M w metastatic NSCLC on palliative nivolumab presenting with slurred speech thought initially to be an acute CVA though now questioning seizures. He is VERY off of his baseline, which is typically very cooperative and clear. We did recently increase his fentanyl for chest pain thought 2/2 tumor. At this point I suspect that he is in part withdrawing from his narcotics (my last office note had him on opana 20 mg q4 hr prn and fentanyl 100 mcg), but he also has this slurred speech that is unclear. It is conceivable but unlikely that he has leptomeningeal carcinomatosis, and to that end if he does calm down we could pursue lumbar puncture. At this point we will obviously hold his nivolumab until the picture is clearer. I do NOT think this is related to the nivolumab however very rarely immune mediated encephalitis has been described. This would be a diagnosis of exclusion after clear brain MRI and lumbar puncture , and if neurology felt this was likely we could try a trial of steroids.
[2016-05-26] MEDS: Insulin LISPRO* 1 UNITS UNIT SUBCUT SCH ×3 (10:35→17:34)
[2016-05-26] MEDS: Omeprazole CAP* 20 MG PO SCH (10:46)
[2016-05-26] MEDS ORDERED: fentaNYL PATCHs 100 MCG/HR TRANSDERM SCH (11:00)
[2016-05-26] MEDS: Pantoprazole IV* 40 MG IV SCH (11:08)
[2016-05-26] MEDS: Heparin VIAL(*) 5000 UNITS/ML VIAL (FIVE THOUSAND) SUBCUT SCH (14:33)
[2016-05-26] MEDS ORDERED: Naloxone* 0.4 MG/ML 1 ML VIAL IV PUSH ONE (16:31)
[2016-05-26] MEDS: Dextrose 50% Syringe 50 ML* 25 GM/50 ML SYRINGE IV PUSH PRN ×2 (19:20→21:25)
--- NOTE | 2016-05-26 20:04 | RAD ---
HISTORY: Right arm weakness COMPARISONS: May 23, 2016 TECHNIQUE: Multiple contiguous axial CT scans were obtained of the head without intravenous contrast. FINDINGS: HEMORRHAGE/INFARCT: There is no hemorrhage or acute infarct. MASSES/SHIFT: There is no mass or shift. EXTRA-AXIAL SPACES: There are no extra-axial fluid collections. SULCI AND VENTRICLES: The sulci and ventricles are normal in size and position for the patient's stated age. CEREBRUM: There are no focal parenchymal abnormalities. BRAINSTEM: There are no focal parenchymal abnormalities. CEREBELLUM: There are no focal parenchymal abnormalities. VESSELS: The vessels are grossly normal. PARANASAL SINUSES: The paranasal sinuses are clear. ORBITS: The orbits are unremarkable. BONES AND SOFT TISSUE: No bone or soft tissue abnormalities are noted. OTHER: None IMPRESSION: NO ACUTE INTRACRANIAL PATHOLOGY.
[2016-05-26 20:43] LABS: Hematocrit 37 % (42-52); Hemoglobin 12.6 g/dl (14.0-18.0); Mean Corpuscular HGB Conc 34 g/dl (31-36); Mean Corpuscular Hemoglobin 30 pg (27-31); Mean Corpuscular Volume 87 fL (80-94); Mean Platelet Volume 8 um3 (7.4-10.4); Red Blood Count 4.23 10^6/ul (4.0-5.4); Red Cell Distribution Width 14 % (10.5-15)
[2016-05-26 20:56] LABS: BUN/Creatinine Ratio 21.6 (8-20); Calcium 8.6 mg/dL (8.6-10.3); EGFR African American 110.1 (>60); EGFR Non-African American 85.6 (>60); Potassium 3.7 mmol/L (3.5-5.0)
--- NOTE | 2016-05-26 21:43 | PN ---
Progress Note - Progress Note Note: Pre-CT brain, glucose was found to be mid-20s, improved to >100 w/ 1amp D50 IV. Post-CT his glucose was again found low in the mid-40s. 2nd amp D50 pushed & IV D5 NS @ 75 ordered w/ Q2H accuchecks through the night.
[2016-05-26] MEDS: D5NS 0.9% 1000 ML BAG* 1,000 ML IV SCH (22:08)
[2016-05-27] MEDS: Heparin VIAL(*) 5000 UNITS/ML VIAL (FIVE THOUSAND) SUBCUT SCH ×3 (01:21→14:42)
[2016-05-27] MEDS: Gabapentin CAP(*) 400 MG PO SCH ×4 (01:22→20:19)
[2016-05-27] MEDS: QUEtiapine TAB* 100 MG PO SCH ×2 (01:23→20:18)
[2016-05-27] MEDS: traZODone TAB* 100 MG PO SCH ×2 (01:23→20:18)
[2016-05-27] MEDS: Phenytoin CAP(*) 100 MG CAP.ER PO SCH ×4 (01:23→20:18)
[2016-05-27] MEDS: levETIRAcetam TAB* 500 MG PO SCH (01:28)
[2016-05-27] MEDS: D5NS 0.9% 1000 ML BAG* 1,000 ML IV SCH (02:30)
[2016-05-27] MEDS: Omeprazole CAP* 20 MG PO SCH ×2 (05:54→08:03)
[2016-05-27] MEDS: Insulin LISPRO* 1 UNITS UNIT SUBCUT SCH (06:30)
[2016-05-27] MEDS: fentaNYL Patch Check Q Shift 1 NOTE SCH ×2 (06:54→19:26)
[2016-05-27] MEDS ORDERED: Naloxone* 0.4 MG/ML 1 ML VIAL IV PUSH ONE (07:34)
[2016-05-27] MEDS ORDERED: Naloxone* 0.4 MG/ML 1 ML VIAL ONE (07:35)
--- NOTE | 2016-05-27 07:54 | PN ---
Subjective Date of Service: 05/27/16 Interval History: Pt is feeling ok currently. Nursing approached me this AM about the patient's RR being only 6-he received no dilaudid or ativan since yesterday AM. Narcan 0.04mg was given IV. He awakened and was more interactive than prior to the narcan. He denies any SOB at this time. Objective Active Medications: Albuterol (Ventolin 2.5 Mg/3 Ml Neb.Arabella*) 2.5 mg INH Q2H PRN PRN Reason: SOB/WHEEZING Dextrose (D50w Syringe 50 Ml*) 12.5 gm IV PUSH .FOR FS < 60 - SS PRN PRN Reason: FS < 60 Last Admin: 05/26/16 21:25 Dose: 12.5 gm Fentanyl (Duragesic Patch 100 Mcg/Hr *) 100 mcg TRANSDERM Q72H [facility] Last Admin: 05/26/16 11:15 Dose: 100 mcg Gabapentin (Neurontin Cap(*)) 800 mg PO TID [facility] Last Admin: 05/27/16 07:42 Dose: Not Given Heparin Sodium (Porcine) (Heparin Vial(*)) 5,000 units SUBCUT Q8HR [facility] Last Admin: 05/27/16 05:54 Dose: 5,000 units Heparin Sodium (Porcine) (Heparin Flush Port (Ivad)) 5 ml FLUSH DAILY [facility] PRN Reason: Protocol Last Admin: 05/26/16 14:34 Dose: 5 ml Levetiracetam (Keppra Tab*) 500 mg PO BID [facility] Last Admin: 05/27/16 01:28 Dose: 500 mg Lorazepam (Ativan Inj*) 0.5 mg IV PUSH Q6H PRN PRN Reason: Anxiety/agitation Magnesium Oxide (Magox 400 Tab*) 400 mg PO DAILY [facility] Last Admin: 05/26/16 10:06 Dose: 400 mg Naloxone HCl (Narcan*) 0.04 mg IV PUSH ONCE ONE Stop: 05/27/16 07:35 Last Admin: 05/27/16 07:38 Dose: 0.04 mg Omeprazole (Prilosec Cap*) 20 mg PO 0600 [facility] Last Admin: 05/26/16 10:46 Dose: 20 mg Ondansetron HCl (Zofran Inj*) 4 mg IV Q6H PRN PRN Reason: NAUSEA Pharmacy Profile Note (Fentanyl Patch Check Q Shift) 1 note N/A 0700,1900 [facility] Last Admin: 05/27/16 06:54 Dose: 1 note Phenytoin Sodium (Dilantin Cap(*)) 100 mg PO TID [facility] Last Admin: 05/27/16 01:23 Dose: 100 mg Quetiapine Fumarate (Seroquel Tab*) 100 mg PO BEDTIME [facility] Last Admin: 05/27/16 01:23 Dose: 100 mg Trazodone HCl (Desyrel Tab*) 100 mg PO BEDTIME [facility] Last Admin: 05/27/16 01:23 Dose: 100 mg Venlafaxine HCl (Effexor Xr Cap*) 75 mg PO DAILY [facility] Last Admin: 05/26/16 10:05 Dose: 75 mg Vital Signs 05/26/16 05/26/16 05/26/16 08:00 08:11 08:26 Temperature 98.4 F Pulse Rate 88 84 Respiratory 16 16 15 Rate Blood Pressure 111/54 (mmHg) O2 Sat by Pulse 100 99 Oximetry 05/26/16 05/26/16 05/26/16 09:26 10:03 10:26 Temperature Pulse Rate Respiratory 20 24 20 Rate Blood Pressure (mmHg) O2 Sat by Pulse Oximetry 05/26/16 05/26/16 05/26/16 10:29 11:15 11:29 Temperature Pulse Rate Respiratory 20 22 20 Rate Blood Pressure (mmHg) O2 Sat by Pulse Oximetry 05/26/16 05/26/16 05/26/16 11:52 12:03 14:41 Temperature 99.0 F Pulse Rate 93 Respiratory 16 18 18 Rate Blood Pressure 118/70 (mmHg) O2 Sat by Pulse 100 Oximetry 05/26/16 05/26/16 05/26/16 15:38 17:36 20:00 Temperature 97.4 F Pulse Rate 88 Respiratory 19 18 10 Rate Blood Pressure 94/63 (mmHg) O2 Sat by Pulse 98 Oximetry 05/26/16 05/26/16 05/27/16 20:23 23:35 01:22 Temperature 97.5 F 98.0 F Pulse Rate 78 74 Respiratory 10 6 15 Rate Blood Pressure 113/72 126/72 (mmHg) O2 Sat by Pulse 96 100 Oximetry 05/27/16 05/27/16 05/27/16 03:22 03:29 07:21 Temperature 98.0 F 98.1 F Pulse Rate 77 77 Respiratory 12 12 12 Rate Blood Pressure 107/69 95/64 (mmHg) O2 Sat by Pulse 98 100 Oximetry 05/27/16 07:43 Temperature Pulse Rate 71 Respiratory Rate Blood Pressure 93/66 (mmHg) O2 Sat by Pulse 99 Oximetry Oxygen Devices in Use Now: None Appearance: Elderly male lying in bed sleeping, awakens to voice and light touch , NAD Eyes: No Scleral Icterus Ears/Nose/Mouth/Throat: Mucous Membranes Moist Respiratory: Symmetrical Chest Expansion and Respiratory Effort, Clear to Auscultation Cardiovascular: NL Sounds; No Murmurs; No JVD, RRR, No Edema Abdominal: NL Sounds; No Tenderness; No Distention Extremities: No Clubbing, Cyanosis Skin: No Rash or Ulcers, No Nodules or Sclerosis Neurological: - - less dysarthric this AM, responded appropriately to questions Result Diagrams: 05/26/16 20:15 05/26/16 20:15 Additional Lab and Data: Microbiology and Other Data: Assess/Plan/Problems-Billing Mr Dudley is a 71 yo M with a h/o HTN, HLD, BPH, lung cancer currently on chemo, DM not on home medications and COPD who presented to the ER with c/o L facial weakness and dysarthia and admitted for TIA vs CVA, improved then worsened again and received about 1/2 dose of tPA (stopped for abnormal INR) before he was identified to be having subclinical seizures with weakness possibly Jaspal's paralysis. - Patient Problems (1) Seizure Current Visit: Yes Status: Acute Code(s): R56.9 - UNSPECIFIED CONVULSIONS SNOMED Code(s): 98006368 Comment: Continue phenytoin 100mg TID and keppra 500mg BID. Check phenytoin level now given decreased mental status though I suspect the decreased mentation is more likely secondary to oversedation from the narcotics he has received. Will try to get MRI of the brain w/wo contrast today. If he is cooperative will also try to get LP. WIll repeat EEG given restlessness, twitching seen last night while pt was trying to eat. Will ask neurology to follow up. (2) Diabetes Current Visit: Yes Status: Acute Code(s): E11.9 - TYPE 2 DIABETES MELLITUS WITHOUT COMPLICATIONS SNOMED Code(s): 02054998 Comment: Blood sugars have ranged from 26-587 yesterday. I am going to stop all insulin for now. He required D5 NS overnight but is now off due to hyperglycemia. (3) HTN (hypertension) Current Visit: Yes Status: Acute Code(s): I10 - ESSENTIAL (PRIMARY) HYPERTENSION SNOMED Code(s): 04571952 Comment: BP has been soft this am. Will start NS @125ml/hr for now. Continue to follow. (4) Lung cancer Current Visit: Yes Status: Acute Code(s): C34.90 - MALIGNANT NEOPLASM OF UNSP PART OF UNSP BRONCHUS OR LUNG SNOMED Code(s): 002993870 Comment: Dr. Tran saw the patient yesterday and noted that he was not behaving like himself. She recommended LP to be done if he calms down to eval for leptomeningeal disease. Additionally there are rare occurances of nivolumab causing immune mediated encephaltitis though this is a diagnosis of exclusion. (5) Anxiety Current Visit: Yes Status: Acute Code(s): F41.9 - ANXIETY DISORDER, UNSPECIFIED SNOMED Code(s): 70235575 Comment: The patient has waxed and waned from severe agitation to obtundation yesterday. This AM received IV narcan for markedly reduced RR. Continue prn ativan but be careful for respiratory depression. (6) Chronic pain Current Visit: Yes Status: Acute Code(s): G89.29 - OTHER CHRONIC PAIN SNOMED Code(s): 79314592 Comment: Pt normally is on fentanyl patch 100mcg/hr topically q72hr and opana 10-20mg po q4hr at home. This AM he is able to tell me he takes both of these (will try to confirm with his ). He appeared to be overmedicated yesterday with a single dose of IV dilaudid 1mg. Will reduce his fentanyl patch to 75mcg/hr top q72hr and monitor his mental status. (7) DVT prophylaxis Current Visit: Yes Status: Acute Code(s): WAJ7852 - SNOMED Code(s): 319436059 Comment: SQ heparin (8) DNR (do not resuscitate) Current Visit: Yes Status: Acute
[2016-05-27] MEDS ORDERED: fentaNYL PATCH 75 MCG/HR* 75 MCG TRANSDERM SCH (08:00)
[2016-05-27] MEDS: NS 0.9% 1000 ML* 1,000 ML IV SCH ×2 (08:09→19:27)
[2016-05-27 08:36] LABS: Phenytoin 15.9 mcg/mL (10-20)
[2016-05-27 08:38] LABS: Magnesium 1.6 mg/dL (1.9-2.7)
[2016-05-27] MEDS: levETIRAcetam LIQ* 500 MG/5 ML UDC PO SCH ×2 (09:32→20:18)
[2016-05-27] MEDS: Venlafaxine EXT RELEASE CAP* 75 MG PO SCH (09:34)
[2016-05-27] MEDS: Magnesium Oxide TAB* 400 MG PO SCH (09:34)
[2016-05-27] MEDS ORDERED: Insulin LISPRO* 1 UNITS UNIT SUBCUT ONE (12:18)
[2016-05-27] MEDS ORDERED: Gadoteridol* (CONTRAST) 279.3 MG/ML 10 ML IV ONE (12:41)
[2016-05-27] MEDS: LORazepam INJ* 2 MG/ML 1 ML VIAL IV PUSH PRN (15:38)
--- NOTE | 2016-05-27 16:52 | RAD ---
HISTORY: Lung cancer, right arm weakness COMPARISONS: May 21, 2016, August 17, 2008 TECHNIQUE: The following sequences were obtained of the head: Sagittal T1-weighted images, axial T2-weighted images, axial FLAIR images, axial susceptibility weighted images, axial T1-weighted images. Additionally, axial diffusion-weighted images were obtained with calculated apparent diffusion coefficients. Additionally, sagittal, coronal, and axial T1-weighted images were obtained after contrast enhancement with a gadolinium-based intravenous contrast agent. FINDINGS: HEMORRHAGE/INFARCT: There is no hemorrhage or acute infarct. MASSES/SHIFT: There is no mass or shift. EXTRA-AXIAL SPACES/MENINGES: There is minimal leptomeningeal enhancement along the right post central gyrus. This is best seen on coronal image 17 and axial image 17 SULCI AND VENTRICLES: The sulci and ventricles are normal in size and position for the patient's stated age. CEREBRUM: There are few scattered small foci of elevated T2/flair signal without abnormal enhancement BRAINSTEM: There are no focal parenchymal abnormalities. CEREBELLUM: There are no focal parenchymal abnormalities. The cerebellar tonsils are normal in size and position. SELLA: The sella is normal. PINEAL: The pineal region is clear. CP ANGLE/TEMPORAL BONES: The labyrinthine structures are grossly normal. VESSELS: Normal flow-voids are noted within the visualized vertebral vasculature. DIFFUSION ABNORMALITIES: There are no diffusion abnormalities. PARANASAL SINUSES/MASTOIDS: The paranasal sinuses are clear. ORBITS: The orbits are unremarkable. BONES AND SOFT TISSUE: No bone or soft tissue abnormalities are noted. OTHER: None IMPRESSION: 1. THERE IS NO RESTRICTED DIFFUSION TO SUGGEST ACUTE INFARCT. 2. THERE IS MINIMAL LEPTOMENINGEAL ENHANCEMENT ALONG THE RIGHT ANTERIOR PARIETAL LOBE. 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 THIS LOCATION IS DISCORDANT WITH THE SYMPTOMS OF RIGHT ARM WEAKNESS.
[2016-05-28] MEDS ORDERED: Dextrose 50% Syringe 50 ML* 25 GM/50 ML SYRINGE IV PUSH PRN (01:12)
[2016-05-28] MEDS ORDERED: Insulin LISPRO* 1 UNITS UNIT SUBCUT ONE (01:12)
--- NOTE | 2016-05-28 02:37 | EEG ---
ELECTROENCEPHALOGRAPHY: DATE OF STUDY: DATE OF DICTATION: 05/27/16 - ROOM #436 PATIENT OF: Dr. Blanca Hoang CLINICAL PROBLEM: This is a 71-year-old man who had episodes of obtundation as well as focal seizures MEDICATIONS: Include: 1. Trazodone. 2. Zofran. 3. Ativan. 4. Dilaudid. 5. Ventolin. 6. Seroquel. 7. Fentanyl. 8. Effexor. 9. Dilantin. 10. Magnesium. 11. Keppra. 12. Neurontin. 13. Prilosec. REPORT: With the patient awake, background cerebral activity consists of moderate amplitude posterior dominant 7 Hz rhythm. With the patient drowsy, there is further slowing into the theta range. No focal abnormalities, major asymmetries of background, or focal epileptiform potentials are noted. CLINICAL IMPRESSION: This EEG is abnormal for mild slowing consistent with mild encephalopathy, but nonspecific as to etiology. Medications the patient is consuming may contribute to this slowing. [id number]/[facility] #: [id number] [facility]
[2016-05-28] MEDS: NS 0.9% 1000 ML* 1,000 ML IV SCH ×3 (03:36→21:10)
--- NOTE | 2016-05-28 03:38 | PN ---
NEUROLOGICAL FOLLOWUP: DATE OF SERVICE: DATE OF DICTATION: 05/27/16 - ROOM #436 HISTORY: I am asked to see Mr. Dudley in followup for altered consciousness, he was definitely obtunded today. He has a history of lung cancer, right lower extremity weakness and numbness, and he has had seizures with Keppra 500 twice a day added on the as well as having Dilantin 3 times a day, and he is on gabapentin 800 mg 3 times a day for his right lower leg pain. 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 Of note, his blood sugars have been as low as the 20s overnight and was 400 this morning. After several hours this morning, he is back to his normal baseline. Of note, he had a respiratory rate of only 6 serafin he was obtunded and he had not received Dilaudid or Ativan since yesterday, Narcan was given and improved following that. MEDICATIONS: Other meds include his fentanyl patch, albuterol, omeprazole, and Zofran p.r.n. He is also on Seroquel at bedtime as well as trazodone at bedtime. PHYSICAL EXAMINATION: Temperature 98.3, pulse 77, respirations 10, blood pressure 106/68. He is alert and oriented. Normal speech and comprehension. Cranial nerves II and XII nonfocal. Motor exam revealed normal tone and strength other than 4+/5 strength in right leg. Chest: Clear. Cardiovascular : Regular rate and rhythm. Abdomen: Soft. DIAGNOSTIC STUDIES/LAB DATA: Labs included Dilantin level 15.9. Today, he had a blood sugar of 402. White count 8, hematocrit 37, platelet count 190. He will be getting an MRI scan shortly, I will be reading his EEG as well. IMPRESSION: At this point, I would not change his treatment for his seizures that would probably decrease his nighttime seductiveness and given this reaction now, but I am not sure of this yet. If Dr. Tran wants a spinal tap as part of this workup for his lung cancer this is reasonable. As far as I can tell, he is back to his recent baseline, but apparently there has been changes in mentation and the tap would be done including flow cytology. [id number]/[facility] #: [id number] [facility]
[2016-05-28] MEDS: Omeprazole CAP* 20 MG PO SCH (05:18)
[2016-05-28] MEDS: fentaNYL Patch Check Q Shift 1 NOTE SCH ×2 (07:36→18:46)
--- NOTE | 2016-05-28 08:01 | PN ---
Subjective Date of Service: 05/28/16 Interval History: Pt is feeling better today. He is complaining of feeling "jerky" and like he is withdrawing from not having his oxymorphone. He denies any SOB. He states he feels his arms are stronger. Objective Active Medications: Albuterol (Ventolin 2.5 Mg/3 Ml Neb.Arabella*) 2.5 mg INH Q2H PRN PRN Reason: SOB/WHEEZING Dextrose (D50w Syringe 50 Ml*) 12.5 gm IV PUSH .FOR FS < 60 - SS PRN PRN Reason: FS < 60 Last Admin: 05/26/16 21:25 Dose: 12.5 gm Fentanyl (Duragesic Patch 75 Mcg/Hr*) 75 mcg TRANSDERM Q72H [facility] Last Admin: 05/27/16 08:06 Dose: 75 mcg Gabapentin (Neurontin Cap(*)) 800 mg PO TID [facility] Last Admin: 05/27/16 20:19 Dose: 800 mg Heparin Sodium (Porcine) (Heparin Flush Port (Ivad)) 5 ml FLUSH DAILY [facility] PRN Reason: Protocol Last Admin: 05/27/16 08:03 Dose: Not Given Hydromorphone HCl (Dilaudid Iv*) 0.5 mg IV SLOW PU Q4H PRN PRN Reason: PAIN Sodium Chloride (Ns 0.9% 1000 Ml*) 1,000 mls @ 125 mls/hr IV PER RATE [facility] Last Admin: 05/28/16 03:36 Dose: 125 mls/hr Insulin Human Lispro (Humalog*) 0 units SUBCUT AC [facility] PRN Reason: Protocol Levetiracetam (Keppra Liq*) 500 mg PO BID [facility] Last Admin: 05/27/16 20:18 Dose: 500 mg Lorazepam (Ativan Inj*) 0.5 mg IV PUSH Q6H PRN PRN Reason: Anxiety/agitation Last Admin: 05/27/16 15:38 Dose: 0.5 mg Magnesium Oxide (Magox 400 Tab*) 400 mg PO DAILY [facility] Last Admin: 05/27/16 09:34 Dose: 400 mg Omeprazole (Prilosec Cap*) 20 mg PO 0600 [facility] Last Admin: 05/28/16 05:18 Dose: 20 mg Ondansetron HCl (Zofran Inj*) 4 mg IV Q6H PRN PRN Reason: NAUSEA Pharmacy Profile Note (Fentanyl Patch Check Q Shift) 1 note N/A 0700,1900 [facility] Last Admin: 05/28/16 07:36 Dose: 1 note Phenytoin Sodium (Dilantin Cap(*)) 100 mg PO TID [facility] Last Admin: 05/27/16 20:18 Dose: 100 mg Trazodone HCl (Desyrel Tab*) 100 mg PO BEDTIME [facility] Last Admin: 05/27/16 20:18 Dose: 100 mg Venlafaxine HCl (Effexor Xr Cap*) 75 mg PO DAILY [facility] Last Admin: 05/27/16 09:34 Dose: 75 mg Vital Signs 05/27/16 05/27/16 05/27/16 09:07 10:29 11:05 Temperature 98.3 F Pulse Rate 78 80 Respiratory 20 16 10 Rate Blood Pressure 106/68 (mmHg) O2 Sat by Pulse 99 98 Oximetry 05/27/16 05/27/16 05/27/16 14:17 15:38 15:41 Temperature 98.7 F 98.3 F Pulse Rate 82 79 Respiratory 10 16 16 Rate Blood Pressure 138/84 122/70 (mmHg) O2 Sat by Pulse 100 Oximetry 05/27/16 05/27/16 05/27/16 16:06 16:40 19:25 Temperature 97.9 F Pulse Rate 78 Respiratory 14 11 16 Rate Blood Pressure 118/59 (mmHg) O2 Sat by Pulse 97 Oximetry 05/27/16 05/27/16 05/27/16 20:00 20:19 22:19 Temperature Pulse Rate Respiratory 15 15 16 Rate Blood Pressure (mmHg) O2 Sat by Pulse Oximetry 05/27/16 05/28/16 05/28/16 23:35 03:38 07:38 Temperature 98.0 F 98.1 F 98.3 F Pulse Rate 82 75 80 Respiratory 16 12 16 Rate Blood Pressure 99/62 105/67 131/76 (mmHg) O2 Sat by Pulse 97 98 99 Oximetry Oxygen Devices in Use Now: None Appearance: Elderly male sitting up in bed, NAD Eyes: No Scleral Icterus Ears/Nose/Mouth/Throat: Mucous Membranes Moist Respiratory: Symmetrical Chest Expansion and Respiratory Effort, Clear to Auscultation Cardiovascular: NL Sounds; No Murmurs; No JVD, RRR, No Edema Abdominal: NL Sounds; No Tenderness; No Distention Extremities: No Clubbing, Cyanosis Skin: No Rash or Ulcers, No Nodules or Sclerosis Neurological: Alert and Oriented x 3 Result Diagrams: 05/26/16 20:15 05/26/16 20:15 Additional Lab and Data: Microbiology and Other Data: Assess/Plan/Problems-Billing Mr Dudley is a 71 yo M with a h/o HTN, HLD, BPH, lung cancer currently on chemo, DM not on home medications and COPD who presented to the ER with c/o L facial weakness and dysarthia and admitted for TIA vs CVA, improved then worsened again and received about 1/2 dose of tPA (stopped for abnormal INR) before he was identified to be having subclinical seizures with weakness possibly Jaspal's paralysis. - Patient Problems (1) Seizure Current Visit: Yes Status: Acute Code(s): R56.9 - UNSPECIFIED CONVULSIONS SNOMED Code(s): 84509588 Comment: Continue phenytoin 100mg TID and keppra 500mg BID. Phenytoin level yesterday in good range. Mental status is markedly improved. Likely severe delirium causing his altered mental status the last several days. Will be getting LP today as MRI with contrast yesterday showed leptomeningeal enhancement along the R anterior parietal lobe. This could be the source of his seizures. (2) Diabetes Current Visit: Yes Status: Acute Code(s): E11.9 - TYPE 2 DIABETES MELLITUS WITHOUT COMPLICATIONS SNOMED Code(s): 51118280 Comment: Sugars are now quite elevated. Restart lispro sliding scale. (3) HTN (hypertension) Current Visit: Yes Status: Acute Code(s): I10 - ESSENTIAL (PRIMARY) HYPERTENSION SNOMED Code(s): 95058271 Comment: BP improved this AM. Stop IVF if eating well. (4) Lung cancer Current Visit: Yes Status: Acute Code(s): C34.90 - MALIGNANT NEOPLASM OF UNSP PART OF UNSP BRONCHUS OR LUNG SNOMED Code(s): 089793665 Comment: Pt now with leptomeningeal enhancement along the R anterior parietal lobe. Plan for LP today. Dr. Tran will take the patient on her service today. (5) Anxiety Current Visit: Yes Status: Acute Code(s): F41.9 - ANXIETY DISORDER, UNSPECIFIED SNOMED Code(s): 03389395 Comment: Anxiety and mental status is markedly improved today. Continue prn ativan. (6) Chronic pain Current Visit: Yes Status: Acute Code(s): G89.29 - OTHER CHRONIC PAIN SNOMED Code(s): 26492504 Comment: Continue fentanyl patch 75mcg/hr topically q72hr. Restart dilaudid 0.5mg IV q4hr prn pain. (7) DVT prophylaxis Current Visit: Yes Status: Acute Code(s): EER9888 - SNOMED Code(s): 355691855 Comment: SQ heparin (8) DNR (do not resuscitate) Current Visit: Yes Status: Acute
[2016-05-28] MEDS: Phenytoin CAP(*) 100 MG CAP.ER PO SCH ×3 (08:11→20:25)
[2016-05-28] MEDS: levETIRAcetam LIQ* 500 MG/5 ML UDC PO SCH ×2 (08:11→20:25)
[2016-05-28] MEDS: Gabapentin CAP(*) 400 MG PO SCH ×3 (08:11→20:25)
[2016-05-28] MEDS: Magnesium Oxide TAB* 400 MG PO SCH (08:11)
[2016-05-28] MEDS: Venlafaxine EXT RELEASE CAP* 75 MG PO SCH (08:12)
[2016-05-28] MEDS: Insulin LISPRO* 1 UNITS UNIT SUBCUT SCH ×3 (08:13→16:53)
--- NOTE | 2016-05-28 08:21 | PN ---
Progress Note - Progress Note SOAP: Subjective: much more mentally alert today. able to converse with me. weapy this am, mainly because he is scared. Objective: Vital Signs Temp Pulse Resp BP Pulse Ox 98.3 F 80 18 131/76 99 05/28/16 07:38 05/28/16 07:38 05/28/16 07:56 05/28/16 07:38 05/28/16 07:38 sitting up in nad perr eomi op moist cta distant s1 s2 nl soft nt +bs no le edema no deficits today, clear speech did not ambulate Laboratory Results - last 24 hr 05/27/16 05/27/16 05/27/16 07:59 11:11 11:23 Glucose 402 H POC Glucose (mg/dL) 430 H* Magnesium 1.6 L Phenytoin 15.9 05/27/16 05/27/16 05/27/16 14:51 16:54 19:20 Glucose POC Glucose (mg/dL) 380 H 175 H 343 H Magnesium Phenytoin 05/27/16 05/27/16 05/28/16 21:41 21:50 00:16 Glucose 428 H POC Glucose (mg/dL) > 444 H* > 444 H* Magnesium Phenytoin 05/28/16 05/28/16 05/28/16 00:25 03:32 07:18 Glucose 472 H POC Glucose (mg/dL) 382 H 191 H Magnesium Phenytoin Albuterol (Ventolin 2.5 Mg/3 Ml Neb.Arabella*) 2.5 mg INH Q2H PRN PRN Reason: SOB/WHEEZING Dextrose (D50w Syringe 50 Ml*) 12.5 gm IV PUSH .FOR FS < 60 - SS PRN PRN Reason: FS < 60 Last Admin: 05/26/16 21:25 Dose: 12.5 gm Fentanyl (Duragesic Patch 75 Mcg/Hr*) 75 mcg TRANSDERM Q72H [facility] Last Admin: 05/27/16 08:06 Dose: 75 mcg Gabapentin (Neurontin Cap(*)) 800 mg PO TID [facility] Last Admin: 05/28/16 08:11 Dose: 800 mg Heparin Sodium (Porcine) (Heparin Flush Port (Ivad)) 5 ml FLUSH DAILY [facility] PRN Reason: Protocol Last Admin: 05/27/16 08:03 Dose: Not Given Hydromorphone HCl (Dilaudid Iv*) 0.5 mg IV SLOW PU Q4H PRN PRN Reason: PAIN Sodium Chloride (Ns 0.9% 1000 Ml*) 1,000 mls @ 125 mls/hr IV PER RATE [facility] Last Admin: 05/28/16 03:36 Dose: 125 mls/hr Insulin Human Lispro (Humalog*) 0 units SUBCUT AC [facility] PRN Reason: Protocol Last Admin: 05/28/16 08:13 Dose: 1 units Levetiracetam (Keppra Liq*) 500 mg PO BID [facility] Last Admin: 05/28/16 08:11 Dose: 500 mg Lorazepam (Ativan Inj*) 0.5 mg IV PUSH Q6H PRN PRN Reason: Anxiety/agitation Last Admin: 05/27/16 15:38 Dose: 0.5 mg Magnesium Oxide (Magox 400 Tab*) 400 mg PO DAILY [facility] Last Admin: 05/28/16 08:11 Dose: 400 mg Omeprazole (Prilosec Cap*) 20 mg PO 0600 [facility] Last Admin: 05/28/16 05:18 Dose: 20 mg Ondansetron HCl (Zofran Inj*) 4 mg IV Q6H PRN PRN Reason: NAUSEA Pharmacy Profile Note (Fentanyl Patch Check Q Shift) 1 note N/A 0700,1900 [facility] Last Admin: 05/28/16 07:36 Dose: 1 note Phenytoin Sodium (Dilantin Cap(*)) 100 mg PO TID [facility] Last Admin: 05/28/16 08:11 Dose: 100 mg Trazodone HCl (Desyrel Tab*) 100 mg PO BEDTIME [facility] Last Admin: 05/27/16 20:18 Dose: 100 mg Venlafaxine HCl (Effexor Xr Cap*) 75 mg PO DAILY [facility] Last Admin: 05/28/16 08:12 Dose: 75 mg Assessment: 71 yo M w metastatic nonsmall cell lung cancer on palliative nivolumab presenting with AMS and seizures. His MRI shows a small area of leptomeningeal enhancement in a region very consistent with his partial seizure disorder. I have reviewed his films with Dr. Arenas and have discussed this with Dixon at length. 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 We discussed that the prognosis for leptomeningeal carcinomatosis in lung cancer is measured at best in months. I do NOT think he would be an appropriate candidate for further palliative chemotherapy. I do think he may benefit from radiation therapy however, particularly in an attempt to ease his nerve palsies and seizure disorder. Dr. Arenas will consult today. Dr. Hoang has also asked anesthesia to perform a diagnostic lumbar puncture today. Hyperglycemia: very poorly controlled and brittle, however interestingly has a HbA1c of only 5.9%. we will need to add back control carefully. at this point I will hold off on steroids for his leptomeningeal disease given this seizures: cont dilantin and jorge appreciate neuro input LP today Pain: at baseline on fentanyl and opana. He did get very lethargic with minimal IV dilaudid and so we will need to be cautious -agree with decreased fentanyl to 75 mcg -cont prn dilaudid -will ask pharmacy if we can resume home opana DNR
[2016-05-28] MEDS: HYDROmorphone* 1 MG/ML 1 ML SYR IV SLOW PU PRN ×4 (08:33→23:32)
[2016-05-28 08:35] LABS: Hematocrit 35 % (42-52); Hemoglobin 11.9 g/dl (14.0-18.0); Mean Corpuscular HGB Conc 34 g/dl (31-36); Mean Corpuscular Hemoglobin 30 pg (27-31); Mean Corpuscular Volume 88 fL (80-94); Mean Platelet Volume 9 um3 (7.4-10.4); Red Blood Count 3.98 10^6/ul (4.0-5.4); Red Cell Distribution Width 14 % (10.5-15); White Blood Count 4.4 10^3/ul (3.5-10.8)
[2016-05-28 13:52] LABS: CSF Glucose 168 mg/dL (40-70)
[2016-05-28 13:57] LABS: BF RBC Count #1 0; BF RBC Count #2 0; BF WBC Count #1 1; BF WBC Count #2 1; Body Fluid Appearance Clear; Body Fluid WBC 1 /mcL; RBC counts within 6%? Yes; WBC counts within 15%? Yes
[2016-05-28 14:07] LABS: BF RBC Count #1 0; BF RBC Count #2 0; BF WBC Count #1 1; BF WBC Count #2 2; Body Fluid Appearance Clear; Body Fluid WBC 2 /mcL; RBC counts within 6%? Yes; WBC counts within 15%? Yes
[2016-05-28 14:13] LABS: Body Fluid Total Cells Counted 17
[2016-05-28 14:23] LABS: Body Fluid Total Cells Counted 30
[2016-05-28] MEDS ORDERED: HYDROmorphone* 1 MG/ML 1 ML SYR IV ONE (16:00)
--- NOTE | 2016-05-28 18:16 | PN ---
Progress Note - Progress Note SOAP: Neurology consult, progress note Date of service 05/28/16 around 12:15 Subjective: The patient has been more alert today and is almost back to his baseline. Objective: Vital Signs Temp Pulse Resp BP Pulse Ox 98.4 F 78 12 154/90 97 05/28/16 16:25 05/28/16 16:25 05/28/16 16:25 05/28/16 16:25 05/28/16 16:25 Current Medications Albuterol (Ventolin 2.5 Mg/3 Ml Neb.Arabella*) 2.5 mg INH Q2H PRN PRN Reason: SOB/WHEEZING Dextrose (D50w Syringe 50 Ml*) 12.5 gm IV PUSH .FOR FS < 60 - SS PRN PRN Reason: FS < 60 Last Admin: 05/26/16 21:25 Dose: 12.5 gm Fentanyl (Duragesic Patch 75 Mcg/Hr*) 75 mcg TRANSDERM Q72H [facility] Last Admin: 05/27/16 08:06 Dose: 75 mcg Gabapentin (Neurontin Cap(*)) 800 mg PO TID [facility] Last Admin: 05/28/16 13:34 Dose: 800 mg Heparin Sodium (Porcine) (Heparin Flush Port (Ivad)) 5 ml FLUSH DAILY [facility] PRN Reason: Protocol Last Admin: 05/28/16 10:51 Dose: Not Given Hydromorphone HCl (Dilaudid Iv*) 0.5 mg IV SLOW PU Q2H PRN PRN Reason: PAIN Sodium Chloride (Ns 0.9% 1000 Ml*) 1,000 mls @ 125 mls/hr IV PER RATE [facility] Last Admin: 05/28/16 12:58 Dose: 125 mls/hr Insulin Human Lispro (Humalog*) 0 units SUBCUT AC [facility] PRN Reason: Protocol Last Admin: 05/28/16 16:53 Dose: 3 units Levetiracetam (Keppra Liq*) 500 mg PO BID [facility] Last Admin: 05/28/16 08:11 Dose: 500 mg Lorazepam (Ativan Inj*) 0.5 mg IV PUSH Q6H PRN PRN Reason: Anxiety/agitation Last Admin: 05/27/16 15:38 Dose: 0.5 mg Magnesium Oxide (Magox 400 Tab*) 400 mg PO DAILY [facility] Last Admin: 05/28/16 08:11 Dose: 400 mg Omeprazole (Prilosec Cap*) 20 mg PO 0600 [facility] Last Admin: 05/28/16 05:18 Dose: 20 mg Ondansetron HCl (Zofran Inj*) 4 mg IV Q6H PRN PRN Reason: NAUSEA Last Admin: 05/28/16 17:44 Dose: 4 mg Pharmacy Profile Note (Fentanyl Patch Check Q Shift) 1 note N/A 0700,1900 [facility] Last Admin: 05/28/16 07:36 Dose: 1 note Phenytoin Sodium (Dilantin Cap(*)) 100 mg PO TID [facility] Last Admin: 05/28/16 13:34 Dose: 100 mg Trazodone HCl (Desyrel Tab*) 100 mg PO BEDTIME [facility] Last Admin: 05/27/16 20:18 Dose: 100 mg Venlafaxine HCl (Effexor Xr Cap*) 75 mg PO DAILY [facility] Last Admin: 05/28/16 08:12 Dose: 75 mg Laboratory Results - last 24 hr 05/28/16 05/28/16 05/28/16 07:18 08:09 08:09 WBC 4.4 RBC 3.98 L Hgb 11.9 L Hct 35 L MCV 88 MCH 30 MCHC 34 RDW 14 Plt Count 134 L MPV 9 INR (Anticoag Therapy) 0.95 APTT 29.0 Glucose POC Glucose (mg/dL) 191 H Fluid Source Fluid Volume Fluid Color Fluid Appearance Fluid WBC Fluid RBC Fluid Tot Cell Count Fluid Neutrophils Fluid Lymphocytes Fluid Monocytes Fluid Cell Count Rvw By CSF Cell Count Tube # CSF Glucose CSF Total Protein 05/28/16 05/28/16 05/28/16 11:16 13:16 13:16 WBC RBC Hgb Hct MCV MCH MCHC RDW Plt Count MPV INR (Anticoag Therapy) APTT Glucose POC Glucose (mg/dL) 341 H Fluid Source Cerebral spinal Fluid Volume 1 Fluid Color Colorless Fluid Appearance Clear Fluid WBC 2 Fluid RBC 0 Fluid Tot Cell Count 30 Fluid Neutrophils Not Reportable Fluid Lymphocytes 33 Fluid Monocytes 67 Fluid Cell Count Rvw By CSF Cell Count Tube # 1 CSF Glucose 168 H CSF Total Protein 66 H 05/28/16 05/28/16 13:16 16:35 WBC RBC Hgb Hct MCV MCH MCHC RDW Plt Count MPV INR (Anticoag Therapy) APTT Glucose POC Glucose (mg/dL) 283 H Fluid Source Cerebral spinal Fluid Volume 1 Fluid Color Colorless Fluid Appearance Clear Fluid WBC 1 Fluid RBC 0 Fluid Tot Cell Count 17 Fluid Neutrophils Not Reportable Fluid Lymphocytes 47 Fluid Monocytes 53 Fluid Cell Count Rvw By CSF Cell Count Tube # 4 CSF Glucose CSF Total Protein On exam he is awake, alert and oriented x 3. Face symmetric. Tongue midline. Seems his strength on the left side has improved. MRI brain IMPRESSION: 1. THERE IS NO RESTRICTED DIFFUSION TO SUGGEST ACUTE INFARCT. 2. THERE IS MINIMAL LEPTOMENINGEAL ENHANCEMENT ALONG THE RIGHT ANTERIOR PARIETAL LOBE. 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 THIS LOCATION IS DISCORDANT WITH THE SYMPTOMS OF RIGHT ARM WEAKNESS. Assessment and plan: 71 year-old male with history of lung cancer, a baseline weakness on the right side (due to spine problem) presented with some weakness on the left side and obtundation and turned out to have an epileptogenic focus in the right fronto- central region which can explain his symptoms. He did receive t-PA at the start of his hospitalization due to concern for acute stroke, but later it was confirmed that his symptoms were related to the epileptogenic focus. The patient is doing well today. His MRI shows leptomeningeal enhancement in the right anterior parietal lobe which localizes to his seizure focus. When I saw the patient earlier today he was supposed to have the LP to rule out Leptomeningeal carcinomatosis, and at the time of completing this note he has. Pending the results of cytology and flow cytometry which can have prognostic implications. I would recommend to continue Gabapentin, Phenytoin and Levetiracetam at the current dose as seems the seizures have been under good control. Level of phenytoin has been in a good range with no apparent side effect.
--- NOTE | 2016-05-28 18:38 | PN ---
Progress Note - Progress Note SOAP: Neurology progress note Date of service 05/28/16 Subjective: Patient still complains of 'sharp' pain in the right shoulder joint and knee. MRI brain completed. Objective: Vital Signs Temp Pulse Resp BP Pulse Ox 98.4 F 78 12 154/90 97 05/28/16 16:25 05/28/16 16:25 05/28/16 16:25 05/28/16 16:25 05/28/16 16:25 Laboratory Results - last 24 hr 05/27/16 05/27/16 05/27/16 19:20 21:41 21:50 WBC RBC Hgb Hct MCV MCH MCHC RDW Plt Count MPV INR (Anticoag Therapy) APTT Glucose 428 H POC Glucose (mg/dL) 343 H > 444 H* Fluid Source Fluid Volume Fluid Color Fluid Appearance Fluid WBC Fluid RBC Fluid Tot Cell Count Fluid Neutrophils Fluid Lymphocytes Fluid Monocytes Fluid Cell Count Rvw By CSF Cell Count Tube # CSF Glucose CSF Total Protein 05/28/16 05/28/16 05/28/16 00:16 00:25 03:32 WBC RBC Hgb Hct MCV MCH MCHC RDW Plt Count MPV INR (Anticoag Therapy) APTT Glucose 472 H POC Glucose (mg/dL) > 444 H* 382 H Fluid Source Fluid Volume Fluid Color Fluid Appearance Fluid WBC Fluid RBC Fluid Tot Cell Count Fluid Neutrophils Fluid Lymphocytes Fluid Monocytes Fluid Cell Count Rvw By CSF Cell Count Tube # CSF Glucose CSF Total Protein 05/28/16 05/28/16 05/28/16 07:18 08:09 08:09 WBC 4.4 RBC 3.98 L Hgb 11.9 L Hct 35 L MCV 88 MCH 30 MCHC 34 RDW 14 Plt Count 134 L MPV 9 INR (Anticoag Therapy) 0.95 APTT 29.0 Glucose POC Glucose (mg/dL) 191 H Fluid Source Fluid Volume Fluid Color Fluid Appearance Fluid WBC Fluid RBC Fluid Tot Cell Count Fluid Neutrophils Fluid Lymphocytes Fluid Monocytes Fluid Cell Count Rvw By CSF Cell Count Tube # CSF Glucose CSF Total Protein 05/28/16 05/28/16 05/28/16 11:16 13:16 13:16 WBC RBC Hgb Hct MCV MCH MCHC RDW Plt Count MPV INR (Anticoag Therapy) APTT Glucose POC Glucose (mg/dL) 341 H Fluid Source Cerebral spinal Fluid Volume 1 Fluid Color Colorless Fluid Appearance Clear Fluid WBC 2 Fluid RBC 0 Fluid Tot Cell Count 30 Fluid Neutrophils Not Reportable Fluid Lymphocytes 33 Fluid Monocytes 67 Fluid Cell Count Rvw By CSF Cell Count Tube # 1 CSF Glucose 168 H CSF Total Protein 66 H 05/28/16 05/28/16 13:16 16:35 WBC RBC Hgb Hct MCV MCH MCHC RDW Plt Count MPV INR (Anticoag Therapy) APTT Glucose POC Glucose (mg/dL) 283 H Fluid Source Cerebral spinal Fluid Volume 1 Fluid Color Colorless Fluid Appearance Clear Fluid WBC 1 Fluid RBC 0 Fluid Tot Cell Count 17 Fluid Neutrophils Not Reportable Fluid Lymphocytes 47 Fluid Monocytes 53 Fluid Cell Count Rvw By CSF Cell Count Tube # 4 CSF Glucose CSF Total Protein Current Medications Albuterol (Ventolin 2.5 Mg/3 Ml Neb.Arabella*) 2.5 mg INH Q2H PRN PRN Reason: SOB/WHEEZING Dextrose (D50w Syringe 50 Ml*) 12.5 gm IV PUSH .FOR FS < 60 - SS PRN PRN Reason: FS < 60 Last Admin: 05/26/16 21:25 Dose: 12.5 gm Fentanyl (Duragesic Patch 75 Mcg/Hr*) 75 mcg TRANSDERM Q72H [facility] Last Admin: 05/27/16 08:06 Dose: 75 mcg Gabapentin (Neurontin Cap(*)) 800 mg PO TID [facility] Last Admin: 05/28/16 13:34 Dose: 800 mg Heparin Sodium (Porcine) (Heparin Flush Port (Ivad)) 5 ml FLUSH DAILY [facility] PRN Reason: Protocol Last Admin: 05/28/16 10:51 Dose: Not Given Hydromorphone HCl (Dilaudid Iv*) 0.5 mg IV SLOW PU Q2H PRN PRN Reason: PAIN Sodium Chloride (Ns 0.9% 1000 Ml*) 1,000 mls @ 125 mls/hr IV PER RATE [facility] Last Admin: 05/28/16 12:58 Dose: 125 mls/hr Insulin Human Lispro (Humalog*) 0 units SUBCUT AC [facility] PRN Reason: Protocol Last Admin: 05/28/16 16:53 Dose: 3 units Levetiracetam (Keppra Liq*) 500 mg PO BID [facility] Last Admin: 05/28/16 08:11 Dose: 500 mg Lorazepam (Ativan Inj*) 0.5 mg IV PUSH Q6H PRN PRN Reason: Anxiety/agitation Last Admin: 05/27/16 15:38 Dose: 0.5 mg Magnesium Oxide (Magox 400 Tab*) 400 mg PO DAILY [facility] Last Admin: 05/28/16 08:11 Dose: 400 mg Omeprazole (Prilosec Cap*) 20 mg PO 0600 [facility] Last Admin: 05/28/16 05:18 Dose: 20 mg Ondansetron HCl (Zofran Inj*) 4 mg IV Q6H PRN PRN Reason: NAUSEA Last Admin: 05/28/16 17:44 Dose: 4 mg Pharmacy Profile Note (Fentanyl Patch Check Q Shift) 1 note N/A 0700,1900 [facility] Last Admin: 05/28/16 07:36 Dose: 1 note Phenytoin Sodium (Dilantin Cap(*)) 100 mg PO TID [facility] Last Admin: 05/28/16 13:34 Dose: 100 mg Trazodone HCl (Desyrel Tab*) 100 mg PO BEDTIME [facility] Last Admin: 05/27/16 20:18 Dose: 100 mg Venlafaxine HCl (Effexor Xr Cap*) 75 mg PO DAILY [facility] Last Admin: 05/28/16 08:12 Dose: 75 mg General appearance: Alert, cooperative, no distress, appears stated age Neurological exam: Alert and oriented x3, speech normal. Pupils symmetric and reactive to light. Extraocular movements intact with no nystagmus. Face symmetric, tongue is in midline, palate elevates upward symmetrically. Motor strength 5/5 on the left, but seems pain in the joints in the right upper and lower extremities are the major limiting factor in mobility on that side. MRI Brain: IMPRESSION: 1. MILD DIFFUSE AND VISUAL CHANGE WITH SCATTERED AREAS OF ELEVATED T2/STIR SIGNAL IN THE PERIVENTRICULAR, SUBCORTICAL, AND PONTINE WHITE MATTER, NONSPECIFIC BUT SUGGESTIVE OF CHRONIC SMALL VESSEL ISCHEMIA. 2. NO RESTRICTED DIFFUSION TO SUGGEST ACUTE INFARCT. Assessment and Plan: 71 year-old female with a few days of difficulty of moving the right side, with the major limiting factor being the pain. Her MRI does not show any acute stroke but has chronic small vessel disease. Her current presentation most likely is related to the joint pain and not neurologically based. Given her chronic small vessel changes can be started on antiplatelets for secondary prevention if there is no contraindication. Please call with questions.
[2016-05-28] MEDS: traZODone TAB* 100 MG PO SCH (20:25)
[2016-05-29] MEDS: HYDROmorphone* 1 MG/ML 1 ML SYR IV SLOW PU PRN ×4 (01:29→07:31)
[2016-05-29] MEDS: LORazepam INJ* 2 MG/ML 1 ML VIAL IV PUSH PRN ×2 (02:44→09:26)
--- NOTE | 2016-05-29 04:01 | RADMED ---
RADIATION ONCOLOGY CONSULTATION NOTE: DATE OF SERVICE: 05/28/16 - ROOM #[id number] REFERRING PHYSICIAN: Dr. Tran. DIAGNOSIS: Metastatic [id number] lung cancer. PERFORMANCE STATUS: ECOG 3. HISTORY OF PRESENT ILLNESS: Mr. 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 He received thoracic radiation therapy and chemotherapy, and more recently was found to have progression of disease in the chest and has been receiving immunotherapy with nivolumab. 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 He has had altered mental status as well as seizure, and is referred for consideration of palliative whole brain radiation therapy. PAST MEDICAL HISTORY: Lung cancer as in the history of present illness, history of diabetes, COPD, asthma, hypertension, hyperlipidemia. MEDICATIONS: As per the inpatient record: 1. Albuterol. 2. Fentanyl. 3. Gabapentin. 4. Dilaudid. 5. Insulin. 6. Keppra. 7. Ativan. 8. Omeprazole. 9. Zofran. 10. Dilantin. 11. Trazodone. 12. Effexor. ALLERGIES: PREGABALIN, VARENICLINE. FAMILY HISTORY: Noncontributory. SOCIAL HISTORY: He is a former smoker and does not drink significant amount of alcohol at this point. REVIEW OF SYSTEMS: His biggest concern is back pain, he reports headache, worsening vision, confusion, as well as some chest pain. The remainder of a complete review of systems is negative for additional associated findings. PHYSICAL EXAMINATION: Vital Signs: Temperature 98.4, pulse rate 78, respiratory rate 18, oxygen saturation 100% on room air, blood pressure 148/86. In general, he is awake, he is alert, he is oriented to himself, his medical history, [facility], and [place], [place]. Lungs: With symmetric air entry bilaterally. Cardiovascular: S1, S2, regular. Abdomen: Soft and nontender. Extremities: No cyanosis or edema. Neurologic: Pupils are equal, round and reactive. Extraocular movements appear intact, although he has subjective diplopia with testing of extraocular movement. Facies appear symmetric. Sensation is intact to V1, V2, V3. Gait and balance not assessed. Strength is symmetric in the upper extremities, globally decreased in the lower extremities, which he reports chronic. PATHOLOGY AND RADIOLOGY: Reviewed as in the history of present illness. ASSESSMENT AND PLAN: Mr. 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 Lumbar puncture has been performed, and results are pending. I did review his history as well as pathologic and radiographic findings, and discussed at some length with the patient, as he is already well informed and familiar. 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 We discussed the impact on prognosis, potential symptomatic concerns, and the potential use of radiation therapy to relieve symptoms. I explained the logistics, rationale for palliative whole brain radiation therapy for his situation, risks, benefits, and alternatives as well as the acute and long-term frequent and uncommon toxicities. I did answer his questions to the best of my ability. He is interested to speak with his about the whole situation and his options, in order to help make a decision, but the patient himself, upon hearing of the potentially very limited prognosis associated with carcinomatous meningitis seemed inclined against radiation at this stage. I will follow up with him regarding decision making once results of his lumbar puncture are available. Thank you for giving me the opportunity to participate in the care of this very pleasant gentleman. ADDENDUM: Lumbar puncture cytology is negative for malignant cells. This does not rule out the possibility of carcinomatous meningitis, and his clinical symptoms and MRI findings still remain fairly concerning. If he would entertain treatment with whole brain radiation therapy, that could be offered on an empirical basis without pathological confirmation, or additional lumbar puncture could be pursued. At this point, it seems that even if we had proof of carcinomatous meningitis, he would be inclined against proceeding with radiation therapy in favor of hospice, but I will follow up with him for further discussion now that the lumbar puncture results are available. [id number]/[facility] #: [id number] MTDD
[2016-05-29 05:21] LABS: Hematocrit 33 % (42-52); Hemoglobin 10.8 g/dl (14.0-18.0); Mean Corpuscular HGB Conc 33 g/dl (31-36); Mean Corpuscular Hemoglobin 30 pg (27-31); Mean Corpuscular Volume 90 fL (80-94); Mean Platelet Volume 9 um3 (7.4-10.4); Red Blood Count 3.64 10^6/ul (4.0-5.4); Red Cell Distribution Width 14 % (10.5-15); White Blood Count 3.6 10^3/ul (3.5-10.8)
[2016-05-29] MEDS: NS 0.9% 1000 ML* 1,000 ML IV SCH (05:25)
[2016-05-29] MEDS: Omeprazole CAP* 20 MG PO SCH (05:26)
[2016-05-29] MEDS: fentaNYL Patch Check Q Shift 1 NOTE SCH ×2 (06:56→18:57)
[2016-05-29] MEDS: Gabapentin CAP(*) 400 MG PO SCH ×3 (07:33→21:17)
[2016-05-29] MEDS: Magnesium Oxide TAB* 400 MG PO SCH (07:34)
[2016-05-29] MEDS: Venlafaxine EXT RELEASE CAP* 75 MG PO SCH (07:34)
[2016-05-29] MEDS: levETIRAcetam LIQ* 500 MG/5 ML UDC PO SCH ×2 (07:34→22:30)
[2016-05-29] MEDS: Phenytoin CAP(*) 100 MG CAP.ER PO SCH ×3 (07:34→21:16)
[2016-05-29] MEDS: Insulin LISPRO* 1 UNITS UNIT SUBCUT SCH ×4 (09:11→22:32)
[2016-05-29] MEDS ORDERED: Insulin LISPRO* 1 UNITS UNIT SUBCUT ONE ×2 (10:00→23:00)
--- NOTE | 2016-05-29 10:20 | PN ---
Progress Note - Progress Note SOAP: Subjective: []He has sever pain, 9/10, in spine and across chest. No complaining of MERRILL. Does not want radiation. Wants to go home and we discussed hospice. He is eating. Breathing fine. Albuterol (Ventolin 2.5 Mg/3 Ml Neb.Arabella*) 2.5 mg INH Q2H PRN PRN Reason: SOB/WHEEZING Dextrose (D50w Syringe 50 Ml*) 12.5 gm IV PUSH .FOR FS < 60 - SS PRN PRN Reason: FS < 60 Last Admin: 05/26/16 21:25 Dose: 12.5 gm Fentanyl (Duragesic Patch 75 Mcg/Hr*) 75 mcg TRANSDERM Q72H [facility] Last Admin: 05/27/16 08:06 Dose: 75 mcg Gabapentin (Neurontin Cap(*)) 800 mg PO TID [facility] Last Admin: 05/29/16 07:33 Dose: 800 mg Heparin Sodium (Porcine) (Heparin Flush Port (Ivad)) 5 ml FLUSH DAILY [facility] PRN Reason: Protocol Last Admin: 05/29/16 07:34 Dose: Not Given Hydromorphone HCl (Dilaudid Iv*) 0.5 mg IV SLOW PU Q2H PRN PRN Reason: PAIN Last Admin: 05/29/16 07:31 Dose: 0.5 mg Insulin Human Lispro (Humalog*) 0 units SUBCUT AC [facility] PRN Reason: Protocol Last Admin: 05/29/16 09:11 Dose: Not Given Levetiracetam (Keppra Liq*) 500 mg PO BID [facility] Last Admin: 05/29/16 07:34 Dose: 500 mg Lorazepam (Ativan Inj*) 0.5 mg IV PUSH Q6H PRN PRN Reason: Anxiety/agitation Last Admin: 05/29/16 09:26 Dose: 0.5 mg Magnesium Oxide (Magox 400 Tab*) 400 mg PO DAILY [facility] Last Admin: 05/29/16 07:34 Dose: 400 mg Omeprazole (Prilosec Cap*) 20 mg PO 0600 [facility] Last Admin: 05/29/16 05:26 Dose: 20 mg Ondansetron HCl (Zofran Inj*) 4 mg IV Q6H PRN PRN Reason: NAUSEA Last Admin: 05/28/16 17:44 Dose: 4 mg Pharmacy Profile Note (Fentanyl Patch Check Q Shift) 1 note N/A 0700,1900 [facility] Last Admin: 05/29/16 06:56 Dose: 1 note Phenytoin Sodium (Dilantin Cap(*)) 100 mg PO TID [facility] Last Admin: 05/29/16 07:34 Dose: 100 mg Trazodone HCl (Desyrel Tab*) 100 mg PO BEDTIME [facility] Last Admin: 05/28/16 20:25 Dose: 100 mg Venlafaxine HCl (Effexor Xr Cap*) 75 mg PO DAILY [facility] Last Admin: 05/29/16 07:34 Dose: 75 mg Objective: [] Vital Signs Temp Pulse Resp BP Pulse Ox 98.0 F 98 16 148/71 99 05/29/16 07:35 05/29/16 07:35 05/29/16 09:33 05/29/16 07:35 05/29/16 07:35 No acute distress HEENT neg Decreased BS RRR S1S2 Has good BS, non tender Tr edema LE Neuro - confused but understanding decision. Full exam differed. Assessment: 71 yo M w metastatic nonsmall cell lung cancer on palliative nivolumab presenting with AMS and seizures. His MRI shows a small area of leptomeningeal enhancement in a region very consistent with his partial seizure disorder. Suspect Leptomeningeal disease causing pain in spine and chest. He does not want aggressive therapy and I discussed hospice with patient, his son and his . Will get him home with hospice but will need to stabilize pain and BS. 1. Seizures: Continue dilantin and keppra 2. Pain: Fentanyl to 100 mg and change Dilaudid to 4 mg po q 2 hrs. Discussed that this may cause sedation. Did well on Opana and if needed can take home medications. Also, start Dexamethasone 8 mg q am for pain, see if helps. 3. DM. On Dex will start low dose of Lispro 8 U daily, continue ISS, Lispro but escalate dose. 4. Consult hospice. DNR
[2016-05-29] MEDS ORDERED: Dextrose 50% Syringe 50 ML* 25 GM/50 ML SYRINGE IV PUSH PRN ×2 (10:22→22:16)
[2016-05-29] MEDS: Dexamethasone TAB* 4 MG PO SCH ×2 (10:44→21:16)
[2016-05-29] MEDS: HYDROmorphone TAB* 4 MG PO PRN ×3 (10:45→21:16)
[2016-05-29] MEDS ORDERED: Insulin GLARGINE(*) 1 UNITS UNIT SUBCUT SCH (11:00)
[2016-05-29] MEDS ORDERED: fentaNYL PATCHs 100 MCG/HR TRANSDERM SCH (11:00)
--- NOTE | 2016-05-29 17:36 | PN ---
Progress Note - Progress Note SOAP: ADDENDUM TO NOTE 05/29/16 [] Pain controlled on Dexamethasone and increase in Dilaudid. He wants to go home tomorrow with hospice to come on Wednesday. - D/C tomorrow am - Evaluate insulin needs overnight on Dex, send in Lantus 10 U daily and syringes to [facility]. Plan daily insulin dose with goal of BS 100 - 400. - Fentanly 100 mcg and Opana 10 q2 for pain. - Dexamethasone 8 mg daily sent to [facility]
--- NOTE | 2016-05-29 19:20 | CONS ---
PALLIATIVE CARE CONSULTATION: DATE OF CONSULT: 05/29/16 PRIMARY CARE PROVIDER: Dr. Ritter in [place]. HOSPITAL COURSE: This is a 71-year-old male with a past medical history of non - small cell lung carcinoma, metastatic on palliative nivolumab, who presented to the emergency room on the with dysarthria and left facial droop. The patient was admitted with a stroke workup. He continued to have waxing and waning mental status. Oncology was involved in the patient's care as well, as well as Neurology. There was concern for an acute stroke and then a possibility of seizures, he became more agitated and there was concern that he was withdrawing from narcotics as he was not on his home narcotic regimen. 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 The patient had a MRI done on the that showed no restricted diffusion to suggest acute infarct. There is minimal leptomeningeal enhancement along the right anterior parietal lobe. 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 This location is discordant with symptoms of right arm weakness. The patient had a CSF cytology that was negative for malignant cells. Dr. Pierre took over service and wrote a note this afternoon suspecting his leptomeningeal disease causing pain in his spine and chest. He does not want aggressive therapy including he does not want radiation therapy. Hospice was discussed and the patient is interested in going home with hospice. He feels his pain is relatively well controlled at this time. He just is anxious to get home. I discussed hospice will not be able to enroll him this afternoon, but that they could as early, but potentially on June 01. The and the son are at the bedside and they feel that they can manage and take care of him over the weekend until hospice gets involved. The patient states most of his pain is in his shoulders, his substernal region and his low back. He states that his breathing has been relatively well controlled. In the morning he does have some dyspnea. His last bowel movement was yesterday. He states he normally has a bowel movement every 3 to 4 weeks and does not have issues with this. Denies any weight loss and has had a good appetite. Ambulating with a walker and getting around relatively okay. His works across the street and his son is involved in his care. They discussed hiring more aides if he continues to deteriorate. Otherwise, remaining review of systems is negative. PAST MEDICAL HISTORY: Significant for; 1. 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 2. Diabetes. 3. COPD. 4. Hypertension. 5. Hyperlipidemia. 6. BPH. 7. Chronic pain. 8. Neuropathy. 9. GERD. 10. Anxiety and depression. MEDICATIONS: Inpatient medications are as follows; 1. Albuterol every 2 hours as needed. 2. Dexamethasone 8 mg p.o. b.i.d. 3. Gabapentin 800 mg p.o. t.i.d. 4. Hydromorphone 4 mg every 4 hours as needed. 5. Lantus 8 units subcu daily. 6. Lispro sliding scale. 7. Lorazepam 0.5 mg every 6 hours as needed for agitation. 8. Magnesium oxide 400 mg p.o. daily. 9. Omeprazole 20 mg daily. 10. Zofran 4 mg every 6 hours as needed. 11. Phenytoin 100 mg p.o. t.i.d. 12. Venlafaxine extended release 75 mg p.o. daily. 13. Fentanyl patch 100 mcg transdermally. 14. Keppra 500 p.o. b.i.d. 15. Trazodone 100 mg p.o. at bedtime. ALLERGIES: PREGABALIN and VARENICLINE. FAMILY HISTORY: Noncontributory. SOCIAL HISTORY: As mentioned, the patient lives at home with his , Magi, and his son, Yovanny, is involved in his care, they are his primary proxies. He is a former smoker. No alcohol use. He ambulates with a walker. He has MOLST form on admission, is a DNR and full intubation. We discussed this further and he would like to be DNR and DNI. He also does not want a trial of feeding tube, but wants to continue with a trial of IV fluids. REVIEW OF SYSTEMS: As mentioned in the HPI. PHYSICAL EXAM: Vital Signs: Temp 98, pulse 83, respiratory rate 16, oxygen saturation 99% on room air, blood pressure 148/71. General: No acute distress , resting comfortably with his and son at the bedside. HEENT: Neck is supple. No lymphadenopathy. Pupils are equal and reactive. Anicteric. Head is normocephalic. Cardiac: Regular rate and rhythm. Soft systolic murmur heard throughout. Respiratory: Diminished breath sounds, prolonged expiratory phase. No wheezes, rhonchi, or rales. Abdomen: Soft, nontender, and nondistended. Extremities: No clubbing, cyanosis, or edema. +1 DPs. Neurologic: Alert and oriented x3. No focal neurologic deficits. LABORATORY DATA: White count 3.6, hemoglobin 10.8, hematocrit 33, platelets 100. Blood glucose is 471. ASSESSMENT AND PLAN: This is a 71-year-old male with a past medical history of metastatic non-small cell lung cancer who presented with altered mental status on the secondary to seizure from suspected leptomeningeal disease. The patient is not interested in any further treatment and would like his pain controlled and to go home with hospice. The patient states he is okay with no hospice coverage for the next 2 days over the weekend and would like to enroll on Wednesday, the . I spoke with Tahira, rn social services, who is going to make arrangement for this. I contacted Dr. Pierre to see if it is possible for him to be discharged home today. The patient's hospice eligibility is secondary to his diagnosis of metastatic non-small cell lung cancer with leptomeningeal disease. Thank you for this consultation. TIME SPENT: Greater than 90 minutes were spent doing consultation, more than half the time was spent in direct patient contact. CC: Dr. Ritter; Dr. Tran* [id number]/[facility] #: [id number] [facility]
[2016-05-29] MEDS: traZODone TAB* 100 MG PO SCH (21:16)
[2016-05-30 01:07] VITALS: BP 112/64
[2016-05-30] MEDS: HYDROmorphone TAB* 4 MG PO PRN (03:29)
[2016-05-30] MEDS: Omeprazole CAP* 20 MG PO SCH (05:19)
[2016-05-30] MEDS: fentaNYL Patch Check Q Shift 1 NOTE SCH (06:46)
[2016-05-30] MEDS ORDERED: Insulin GLARGINE(*) 1 UNITS UNIT SUBCUT SCH (07:09)
--- NOTE | 2016-05-30 07:44 | DS ---
- Discharge Summary ADMIT DATE: 05/21/2016 DISCHARGE DATE: 05/30/2016 DISCHARGE DIAGNOSIS: 1. seizures 2. leptomeningeal carcinomatosis 3. metastatic nonsmall cell lung cancer 4. poorly controlled diabetes 5. chronic pain syndrome DISCHARGE MEDICATIONS: Medication Instructions Recorded Confirmed Type Esomeprazole(NF) [Nexium(NF)] 40 mg PO DAILY 12/13/15 05/21/16 History Gabapentin CAP(*) [Neurontin 400 800 mg PO TID 12/13/15 05/21/16 History mg CAP(*)] traZODone TAB* [Desyrel TAB*] 100 mg PO BEDTIME 12/13/15 05/21/16 History Bupropion XL (NF) [Wellbutrin XL 300 mg PO BEDTIME 05/21/16 05/21/16 History (NF)] Cholecalciferol [Vitamin D3 Super 2,000 unit PO DAILY 05/21/16 05/21/16 History Strength] LORazepam TAB(*) [Ativan 0.5 MG 0.5 mg PO BID PRN 05/21/16 05/21/16 History TAB (*)] [place]-3 Fatty Acids (Nf) [Fish Oil 1,000 mg PO DAILY 05/21/16 05/21/16 History (NF)] Sennosides-Docusate Sodium 1 - 4 tab PO BID 05/21/16 05/21/16 History [Senna-S 8.6-50 mg] Venlafaxine EXT RELEASE CAP* 75 mg PO DAILY 05/21/16 05/21/16 History [Effexor Xr CAP*] fentaNYL PATCHs 100 MCG/HR* 100 mcg TRANSDERM Q72H 05/21/16 05/21/16 History [Duragesic Patch 100 Mcg/Hr *] Dexamethasone TAB* [Decadron TAB*] 8 mg PO BID #120 tab 05/30/16 Rx Insulin GLARGINE(*) [Lantus(*)] 12 units SUBCUT Q24H #30 unit 05/30/16 Rx Levetiracetam [Keppra 500] 500 mg PO BID #60 tab 05/30/16 Rx Oxymorphone (NF) [Opana (NF)] 20 mg PO Q4H PRN #360 tab MDD 120 05/30/16 Rx mg INCREASED DOSE Phenytoin CAP(*) [Dilantin CAP(*)] 100 mg PO TID #90 cap.er 05/30/16 Rx ] DISCHARGE FOLLOW UP: to be discharged on hospice HOSPITAL COURSE: Mr. Dudley was admitted with garbled speech and AMS. He was initially felt to be having a stroke but was out of the window for TPA. His initial noncontrast brain imaging was negative. The night of admission day he again developed garbled speech and was transferred to the ICU and given TPA. 1/2 dose was administered prior to realizing that coags were elevated and TPA was stopped. EEG was placed and it became obvious that he was having focal seizures and not strokes and so antiepileptics were started. He had a contrasted MRI which unfortunately revealed leptomeningeal enhancement in a region corresponding with his symptoms. LP had elevated glucose and protein, though was otherwise nondiagnostic. Given the clear progression of disease and his baseline poor performance status, after extensive conversation, radiation oncology consultation, and palliative care consultation Corky decided to pursue home hospice. He asked that this be inacted on the Wednesday after discharge if possible. He was also noted to have very difficult to control blood sugars, ranging from 20 to 600. interestingly his HbA1c was only 5.9%. He was started on dexamethasone 8 mg po bid for his [employer] disease and so low dose lantus was started at 12 U daily, and will be done at home WITHOUT fingersticks until he stops taking POs at which time it can be stopped. He also had difficulty managing his pain in the hospital. Unfortunately we did not have Opana available. He did go through withdrawal initially, and was oversedated at one point requiring narcan. We settled on dilaudid which provided decent but less than ideal control. He will resume his opana at home, though notably was needing to take almost double his home dose the week prior to admission and so we will prescribe that dosage. His seizures were controlled on antiepileptics. >40 mins spent in face to face counseling
== END 2016-05-30 08:24 | disposition hospice, home (50) | DRG 53 ==
LOC: ED 08:43 → MEDTELE 10:46 → ICU 05-22 02:43 → MED 05-25 07:56 → MEDTELE 05-25 22:45
PROVIDERS: ADMIT Internal Medicine; ATTEND Internal Medicine Hematology & Oncology
PROC: 3E03317 Introduction of Other Thrombolytic into Peripheral Vein, Percutaneous Approach (ICD-10-PCS; principal; 2016-05-21)
PROC: 009U3ZX Drainage of Spinal Canal, Percutaneous Approach, Diagnostic (ICD-10-PCS; 2016-05-21)
DX: G40.909 Epilepsy, unspecified, not intractable, without status epilepticus (principal); C79.32 Secondary malignant neoplasm of cerebral meninges; C34.90 Malignant neoplasm of unspecified part of unspecified bronchus or lung; J44.9 Chronic obstructive pulmonary disease, unspecified; E11.65 Type 2 diabetes mellitus with hyperglycemia; F11.23 Opioid dependence with withdrawal; Z88.8 Allergy status to other drugs, medicaments and biological substances; Z82.49 Family history of ischemic heart disease and other diseases of the circulatory system; R40.2412 Glasgow coma scale score 13-15, at arrival to emergency department; R29.712 NIHSS score 12; R29.810 Facial weakness; R47.81 Slurred speech; E78.5 Hyperlipidemia, unspecified; M54.5 Low back pain; N40.0 Benign prostatic hyperplasia without lower urinary tract symptoms; R53.1 Weakness; Z82.3 Family history of stroke; Z87.891 Personal history of nicotine dependence; G54.2 Cervical root disorders, not elsewhere classified; F41.9 Anxiety disorder, unspecified; Z66 Do not resuscitate; G89.4 Chronic pain syndrome; Z79.4 Long term (current) use of insulin
CPT/HCPCS: 36415; 70450; 70496; 70498; 70551; 70553; 71010; 80048; 80053; 80061; 80185; 81003; 82550; 82945; 82947; 83036; 83605; 83735; 84157; 84484; 85025; 85027; 85610; 85730; 86850; 86900; 86901; 87070; 87086; 87205; 87641; 88112; 89051; 93005; 93306; 93970; 94760; 95819; 95951; 99232; 99233; 99239; A9270-GY; A9579; J0610; J1170; J1630; J1642; J1644; J2060; J2310; J2405; J2997; J3475; Q2009; Q9967